=== PATIENT | female | born 1960 | race Caucasian/White ===

== ENCOUNTER 2017-11-17 15:45 | Emergency (ER) | payer OTHER ==
[2017-11-17 16:09] VITALS: TEMP 98.6; BMI 31.0
--- NOTE | 2017-11-17 16:09 | PDOC ---
Rapid Medical Evaluation Time Seen by Provider: 11/17/17 16:04 Medical Evaluation: Allergies Allergy/AdvReac Type Severity Reaction Status Date / Time No Known Drug Allergies Allergy Verified 11/16/17 23:28 11/17/17 16:04 I have performed a brief in-person evaluation of this patient. The patient presents with a chief compliant of: chest pain x 2 days. States pain in throat that radiates into mid chest and left arm intermittently. States nausea with pain. Denies dizziness or shortness of breath Pertinent physical exam findings are: Nad unlabored breathing, clear lungs bilaterally heart s1s2 +bowel sounds, non tender abdomen I have ordered the following: ekg, labs The patient will proceed to the ED for further evaluation.
[2017-11-17] MEDS ORDERED: HEPARIN NA (PORCINE) 5,000 UNITS/ML 1ML VIAL IVPUSH ONE (16:31)
[2017-11-17] MEDS ORDERED: ASPIRIN 325 MG TABLET PO ONE (16:31)
--- NOTE | 2017-11-17 16:34 | PDOC ---
History of Present Illness - General Chief Complaint: Chest Pain Stated Complaint: CHEST PAIN Time Seen by Provider: 11/17/17 16:04 - History of Present Illness Initial Comments: 11/17/17 16:37 The patient is a 56 year old female with a history of HTN, HLD, DM who presents for evaluation of chest pain. The patient reports a 1 day history of worsening sharp left sided chest pain with radiation to the patient's neck. She reports severe worsening pain today prompting her presentation to the ED for further evaluation. The patient had a near syncopal episode in triage and was noted to have an inferior wall STEMI on EKG. She notes SOB as well, but otherwise denies fevers, chills, nausea, vomiting, abdominal pain, or changes with urination or bowel movements. Past History - Past Medical History Allergies/Adverse Reactions: Allergies Allergy/AdvReac Type Severity Reaction Status Date / Time Penicillins Allergy Verified 11/17/17 16:05 Home Medications: Ambulatory Orders Losartan Potassium 100 mg PO DAILY #0 tablet 10/10/11 Nifedipine ER [Procardia XL -] 60 mg PO DAILY #0 tab.er.24 08/10/12 Aspirin [ASA -] 81 mg PO DAILY 10/24/15 Glipizide 5 mg PO DAILY 10/24/15 Tamoxifen Citrate 10 mg PO ASDIR 10/24/15 Anemia: No Asthma: No Cancer: Yes (breast ca) Cardiac Disorders: No CVA: No COPD: No CHF: No Dementia: No Diabetes: Yes GI Disorders: No Disorders: No HTN: Yes Hypercholesterolemia: Yes Liver Disease: No Seizures: No Thyroid Disease: No - Surgical History Appendectomy: Yes - Suicide/Smoking/Psychosocial Hx Smoking Status: No Smoking History: Current every day smoker Years of Tobacco Use: 15 Have you smoked in the past 12 months: No Number of Cigarettes Smoked Daily: 10 Information on smoking cessation initiated: Yes 'Breaking Loose' booklet given: 10/24/15 Hx Alcohol Use: No Drug/Substance Use Hx: No Substance Use Type: None Hx Substance Use Treatment: No Review of Systems - Review of Systems Comments:: 11/17/17 16:40 Constitutional: No fevers, chills, fatigue, malaise HEENT: No Rhinorrhea, nasal congestion, visual changes Cardiovascular:Chest pain. No syncope, palpitations, lightheadedness Respiratory: SOB. No Cough, Hemoptysis, Gastrointestinal: No Abdominal pain, Nausea, Vomiting, Constipation, Diarrhea, Melena Genitourinary: No Dysuria, Frequency, Urgency, Hesitancy, Hematuria, Flank pain Musculoskeletal: No Myalgia, arthralgia Skin: No rashes, itching, bruising, pallor Neurologic: No Headache, Dizziness, Numbness, Weakness, or Tingling Psychiatric: No Hallucinations. No SI or HI *Physical Exam - Vital Signs Last Vital Signs Temp Pulse Resp BP Pulse Ox 98.6 F 96 H 16 126/88 99 11/17/17 16:05 11/17/17 16:05 11/17/17 16:05 11/17/17 16:05 11/17/17 16:05 - Physical Exam Comments: 11/17/17 16:40 General Appearance: Nourished. Diaphoretic. In Severe Apparent Distress HEENT: No Pharyngeal Erythema, Tonsillar Exudate, Tonsillar Erythema Neck: No Cervical Lymphadenopathy Respiratory/Chest: Lungs Clear, Normal Breath Sounds. No Crackles, Rales, Rhonchi, Wheezing Cardiovascular: Regular Rhythm, Regular Rate. No Murmur, Gallops, Rubs Gastrointestinal/Abdominal: Normal Bowel Sounds, Soft. No Guarding, Rebound, Tenderness Musculoskeletal: No CVA Tenderness Extremity: Normal Capillary Refill Integumentary: Normal Color, Dry, Warm Neurologic: Fully Oriented, Alert, Normal Mood/Affect, Normal Response, Heart Score/ECG Review #1 ECG reviewed & interpreted by me at: 16:41 (ST elevations in Leads II, III, aVF. ST Depressions in leads V4, V5, V6) General ECG Interpretation: Sinus Rhythm, Normal Rate, No acute ischemic changes Medical Decision Making - Medical Decision Making 11/17/17 16:42 The patient is a 56 year old female with a history of HTN, HLD, DM who presents for evaluation of chest pain. Given the patient's history and physical exam, the patient's symptoms are consistent with an inferior wall STEMI and the patient will require transfer for process laboratory specialist. We will treat here in the ED with asa, brilinta, heparin. We will obtain a cbc, cmp, troponin, coags to evaluate further. We discussed the case with the process laboratory specialist at [facility] with Dr. Batista who accepted the patient for transfer. We discussed the plan with the patient who voiced understanding and is agreeable with the plan. 11/17/17 16:50 *DC/Admit/Observation/Transfer Diagnosis at time of Disposition: STEMI (ST elevation myocardial infarction) Qualifiers: Involved coronary artery: unspecified coronary artery Qualified Code(s): I21.3 - ST elevation (STEMI) myocardial infarction of unspecified site - Discharge Dispostion Disposition: TRANSFER ACUTE CARE/OTHER HOSP Condition at time of disposition: Stable Decision to Admit order: No - Referrals Referrals: Kai Lu MD [Primary Care Provider] - - Patient Instructions - Post Discharge Activity - Transfer to Acute Care Facility Receiving Facility: [facility] Accepting Physician:: Dr. Batista
--- NOTE | 2017-11-17 16:37 | PDOC ---
Attending Attestation - Resident Resident Name: Jorge Luis Kelley - ED Attending Attestation I have performed the following: I have examined & evaluated the patient, The case was reviewed & discussed with the resident, I agree w/resident's findings & plan, Exceptions are as noted - HPI HPI: 11/17/17 16:34 56 years old past medical history significant for diabetes high cholesterol active tobacco presents the ED with 2 day history of chest pain worsening over the last several hours it radiates to her neck. It is sharp and pressure-like moderate to severe worsening in intensity associated with diaphoresis and nausea. No history of similar. No exacerbating or alleviating factors. Upon arrival to the emergency department patient had initial EKG done which did not show any acute elevations. Her pain then began to worsen she was being escorted back for a second EKG and collapsed in pain. Her second age EKG demonstrated ST elevations. - Physicial Exam PE: 11/17/17 16:34 Vitals: Triage Vital signs reviewed General Appearance: no acute distress, well nourished well developed, Head: Atraumatic, Neck: Supple;No Nucal rigidity Chest Wall: Nontender Cardiac: Regular rate and rhythym, no murmurs, no rubs, no gallops, Lungs: Clear to auscultation bilateral, good air movement bilaterally, Abdomen: Soft, non distended, normal bowel sounds, non tender to palpation Extremities: Full range of motion to all extremities, no cyanosis, clubbing, or edema Skin: Warm and dry, no rashes or lesions, no rash, no petechiae Psych: normal mood, normal affect - Critical Care Time Total Critical Care Time: 35 Critical Care Statement: The care of this patient involved high complexity decision making to prevent further life threatening deterioration of the patient 's condition and/or to evaluate & treat vital organ system(s) failure or risk of failure. - Medical Decision Making Acute STEMI on EKG. Patient ordered for aspirin heparin bolus and Brilinta Case immediately discussed with [facility] transfer team. Transfer being arranged. Awaiting callback from accepting interventionalist. Dr. Voss Interventional Cardiology accepting MD Patient consented for transfer. All questions answered. Patient stable for transfer at this time. Heart Score/ECG Review - ECG Impressions Comment:: 11/17/17 16:[address] elevations in leads 23 aVF. T-wave inversions in leads V4 V5 and V6.
[2017-11-17] MEDS ORDERED: ASPIRIN 81 MG CHEWABLE TABLETS ONE (16:38)
[2017-11-17] MEDS ORDERED: TICAGRELOR 90 MG TABLET PO ONE (16:38)
[2017-11-17] MEDS ORDERED: HEPARIN NA (PORCINE) 5,000 UNITS/ML 1ML VIAL ONE (16:38)
[2017-11-17] MEDS ORDERED: TICAGRELOR 60 MG TABLET PO ONE (16:50)
[2017-11-17 16:57] VITALS: BP 167/99; PULSE 86
[2017-11-17 17:18] LABS: BASO % 0.6 % (0-2.0); HEMOGLOBIN 14.9 GM/dL (10.7-15.3); LYMPH % 34.1 % (8-40); MCH 27.3 pg (25.7-33.7); MCHC 32.4 g/dl (32.0-36.0); MEAN CELL VOLUME 84.4 fl (80-96); MEAN PLT VOLUME 9.4 fl (7.5-11.1); MONO % 6.9 % (3.8-10.2); NEUT % 57.4 % (42.8-82.8); PLATELET COUNT 301 K/MM3 (134-434); RBC 5.44 M/mm3 (3.60-5.2); RDW 14.8 % (11.6-15.6); WHITE BLOOD COUNT 13.8 K/mm3 (4.0-10.0)
[2017-11-17 17:28] LABS: INR 0.87 (0.82-1.09); PROTHROMBIN TIME (PATIENT) 9.8 SEC (9.7-13.0)
[2017-11-17 17:31] LABS: ACTIVATED PTT 27.4 SECONDS (25.2-36.5)
[2017-11-17 17:41] LABS: ALBUMIN 3.9 g/dl (3.4-5.0); ANION GAP 11 (8-16); BILIRUBIN,TOTAL 0.4 mg/dL (0.2-1.0); BLOOD UREA NITROGEN 20 mg/dL (7-18); CALCIUM 9.3 mg/dL (8.5-10.1); CHLORIDE 100 mmol/L (98-107); CO2 25 mmol/L (21-32); SGPT/ALT 26 U/L (12-78); SODIUM 136 mmol/L (136-145); TOT PROT 7.6 g/dl (6.4-8.2)
[2017-11-17 17:44] LABS: ALK PHOS 110 U/L (45-117)
[2017-11-17 17:45] LABS: GLUCOSE,RANDOM 347 mg/dL (74-106); POTASSIUM 4.7 mmol/L (3.5-5.1); SGOT/AST 18 U/L (15-37)
[2017-11-17] MEDS ORDERED: TICAGRELOR 60 MG TABLET PO SCH (22:00)
--- NOTE | 2017-11-18 11:39 | EKG ---
Test Reason : Blood Pressure : / mmHG Vent. Rate : 072 BPM Atrial Rate : 072 BPM P-R Int : 112 ms QRS Dur : 094 ms QT Int : 406 ms P-R-T Axes : 055 064 073 degrees QTc Int : 444 ms AGE AND GENDER SPECIFIC ECG ANALYSIS NORMAL SINUS RHYTHM WITH SINUS ARRHYTHMIA POSSIBLE LEFT ATRIAL ENLARGEMENT ST ELEVATION CONSIDER INFERIOR INJURY OR ACUTE INFARCT ACUTE ME / STEMI Consider right ventricular involvement in acute inferior infarct ABNORMAL ECG WHEN COMPARED WITH ECG OF 17-NOV-2017 15:54, T WAVE AMPLITUDE HAS INCREASED IN LATERAL LEADS Confirmed by JOSE ALFREDO WEBB, MARTA ([id number]) on 11/18/2017 11:39:39 AM Referred By: Confirmed By:MARTA VELIZ MD
--- NOTE | 2017-11-27 12:14 | EKG ---
Test Reason : Blood Pressure : / mmHG Vent. Rate : 099 BPM Atrial Rate : 099 BPM P-R Int : 112 ms QRS Dur : 084 ms QT Int : 370 ms P-R-T Axes : 049 035 047 degrees QTc Int : 474 ms NORMAL SINUS RHYTHM POSSIBLE LEFT ATRIAL ENLARGEMENT BORDERLINE ECG WHEN COMPARED WITH ECG OF 01-AUG-2012 14:02, NO SIGNIFICANT CHANGE WAS FOUND Confirmed by MARTA VELIZ MD ([id number]) on 11/27/2017 12:14:12 PM Referred By: Confirmed By:MARTA VELIZ MD
== END 2017-11-17 17:00 | disposition short-term general hospital (02) ==
LOC: JER 15:45
PROC: 3E033GC Introduction of Other Therapeutic Substance into Peripheral Vein, Percutaneous Approach (ICD-10-PCS; principal; 2017-11-17)
DX: I21.3 ST elevation (STEMI) myocardial infarction of unspecified site (principal); E11.9 Type 2 diabetes mellitus without complications; I10 Essential (primary) hypertension; E78.5 Hyperlipidemia, unspecified
CPT/HCPCS: 36415; 80053; 84484; 85025; 85610; 85730; 93005; 93010; 99284-25; J1644

== ENCOUNTER 2018-06-14 13:22 | Inpatient (IN) | payer OTHER ==
[2018-06-14] MEDS ORDERED: DOXYCYCLINE INJECTION 100 MG in DEXTROSE 5%-WATER - 100 ML IVPB ONE (15:21)
[2018-06-14] MEDS ORDERED: CEFTRIAXONE 1,000 MG in DEXTROSE 5%-WATER - 50 ML IVPB ONE (15:21)
--- NOTE | 2018-06-14 15:21 | PDOC ---
Attending Attestation - Resident Resident Name: Moose [place]enton - ED Attending Attestation I have performed the following: I have examined & evaluated the patient, The case was reviewed & discussed with the resident, I agree w/resident's findings & plan - HPI HPI: 06/14/18 15:22 57 year old female with a history of HTN, HLD, DM, breast ca s/p remission, PE presenting with 2 weeks of cough, malaise and night sweats. on course of Zpak without relief ~1 week ago. no cp, sob, fevers, AP, n/v/d, leg pain or swelling sent in by PMD for admission, CT imaging, cultures and treatment. PMD Dr Lu - Physicial Exam PE: 06/14/18 15:23 NAD, well appearing, PERRL, EOMI, MMM, nl conjunctiva, anicteric; neck supple. lungs clear, RRR, abdomen soft nontender. HINES x4, no focal neuro deficits. No peripheral edema. normal color for ethnicity, WWP. no calf tenderness. - Medical Decision Making 06/14/18 15:23 Vital Signs Temp Pulse Resp BP Pulse Ox 98.7 F 95 H 20 126/80 100 06/14/18 13:59 06/14/18 13:59 06/14/18 13:59 06/14/18 13:59 06/14/18 13:59 hpi as documented, VS wnl well appearing labs ordered, cultures pending cef/doxycycline for pneumonia coverage, failing outpatient abx. bedside sono with left air bronchograms, no effusion, A line profile. no acute cardiac findings as documented Admit to dr Lu service, medical management. Procedures - Bedside Ultrasound Bedside Ultrasound: Lung Remarks: 06/14/18 16:02 POCUS echo and thoracic exam performed and documented/saved, indication includes chest pain/dyspnea. views obtained (PSLA, PSS, A4, SX, bilateral lung leblanc). Findings include normal EF on visual estimation, no pericardial or pleural effusion, scant B lines and air bronchograms on left. no effusion. RV< LV. Impression: left sided pneumonia. no acute cardiac findings.
--- NOTE | 2018-06-14 15:32 | HP ---
Admitting History and Physical - Primary Care Physician PCP: Kai Lu - Admission Chief Complaint: cough for 2 weeks with night sweats and weight loss History of Present Illness: 57 yr old female sent in by PMD for further work up of cough and night sweats with weight loss per patient for last two weeks has been coughing with greenish sputum got z pack still no relief went back to pmd was told to come to ER for ct scan and cultures and blood work PMD gave her spiriva and nebulizers as well smokes 1-2 cigg per day ER rocephin and doxycycline labs pending - Past Medical History Cardiovascular: Yes: CAD (with stents), HTN, Hyperlipdemia ...LMP: 11/18/11 Heme/Onc: Yes: Cancer (breast), Other (PE) Musculoskeletal: Yes: Other (neuropathy) Endocrine: Yes: Diabetes Mellitus - Smoking History Smoking history: Former smoker Have you smoked in the past 12 months: No Aproximately how many cigarettes per day: 10 - Alcohol/Substance Use Hx Alcohol Use: No Home Medications - Allergies Allergies/Adverse Reactions: Allergies Allergy/AdvReac Type Severity Reaction Status Date / Time Penicillins Allergy Verified 06/14/18 13:51 - Home Medications Home Medications: Ambulatory Orders Losartan Potassium 100 mg PO DAILY #0 tablet 10/10/11 Nifedipine ER [Procardia XL -] 60 mg PO DAILY #0 tab.er.24 08/10/12 Tamoxifen Citrate 10 mg PO ASDIR 10/24/15 Albuterol 2.5/Ipratropium 0.5 [Duoneb -] 1 neb IH QID 06/14/18 Atorvastatin Calcium [Lipitor] 10 mg PO HS 06/14/18 Cholecalciferol (Vitamin D3) [Vitamin D3 -] 1,000 unit PO DAILY 06/14/18 Clopidogrel Bisulfate [Plavix -] 75 mg PO DAILY 06/14/18 Metformin HCl [Glucophage] 1,000 mg PO BID 06/14/18 Metoprolol Succinate [Toprol Xl -] 25 mg PO DAILY 06/14/18 Omeprazole Magnesium [Prilosec Otc] 20 mg PO DAILY 06/14/18 Rosuvastatin Calcium [Crestor] 10 mg PO HS 06/14/18 Tiotropium [place] [Spiriva Respimat] 4 gm IH BID 06/14/18 hydrOXYzine HCL [Atarax -] 25 mg PO TID 06/14/18 Review of Systems - Review of Systems Constitutional: reports: Loss of Appetite, Night Sweats, Unintentional Wgt. Loss Respiratory: reports: Cough Physical Examination Vital Signs: Vital Signs Temperature 98.7 F 06/14/18 13:59 Pulse Rate 95 H 06/14/18 13:59 Respiratory Rate 20 06/14/18 13:59 Blood Pressure 126/80 06/14/18 13:59 O2 Sat by Pulse Oximetry (%) 100 06/14/18 13:59 Constitutional: Yes: Calm Cardiovascular: Yes: Regular Rate and Rhythm, S1, S2 Respiratory: Yes: Diminished, Rhonchi Gastrointestinal: Yes: Normal Bowel Sounds, Soft Edema: No Neurological: Yes: Alert, Oriented Problem List - Problems (1) Cough Assessment/Plan: pulm ID ct scan cutltures spriba labs heparin subq rapid flu [place] Code(s): R05 - COUGH (2) Night sweat Assessment/Plan: ct scan chest abdomen pelvis Code(s): R61 - GENERALIZED HYPERHIDROSIS (3) CAD (coronary artery disease) Assessment/Plan: statin plabvix metoprolol Code(s): I25.10 - ATHSCL HEART DISEASE OF [place] CORONARY ARTERY W/O ANG PCTRS (4) Smoker Assessment/Plan: nicotine patch Code(s): F17.200 - NICOTINE DEPENDENCE, UNSPECIFIED, UNCOMPLICATED (5) Diabetes Assessment/Plan: hgba1C 12.7 PER PMD sliding scale bgm hold metformin insulin Code(s): E11.9 - TYPE 2 DIABETES MELLITUS WITHOUT COMPLICATIONS Qualifiers: Diabetes mellitus type: type 2
[2018-06-14] MEDS ORDERED: CEFTRIAXONE 1 GM/50 ML BAG ONE (15:34)
[2018-06-14] MEDS ORDERED: ALBUTEROL SO4 2.5/IPRATROPIUM 0.5 INH SOL 3 ML VIAL.NEB. NEB PRN (15:37)
--- NOTE | 2018-06-14 16:11 | PDOC ---
History of Present Illness - General History Source: Patient Exam Limitations: No Limitations - History of Present Illness Initial Comments: 06/14/18 16:06 The patient is a 57F with a PMH of HTN, HLD, DM who presents to the ER with 2 weeks of cough and night sweats. The patients states that she's had a cough for 2 weeks accompanied by night sweats and sweats that occur during the day. She states that her cough is worse when she lays down. She denies fever, sick contacts, recent travel, recent surgery, but admits to a hx of breast CA in 2012 but is unsure of the evaluation. She also denies hemoptysis but admits to a green sputum for her productive cough. <Moose Denton - Last Filed: 06/18/18 05:16> <Britney Bear - Last Filed: 06/18/18 18:31> - General Chief Complaint: Respiratory Stated Complaint: SENT BY PCP Time Seen by Provider: 06/14/18 14:21 Past History - Past Medical History Anemia: No Asthma: No Cancer: Yes (breast ca) Cardiac Disorders: Yes [place]) CVA: No COPD: No CHF: No Dementia: No Diabetes: Yes GI Disorders: No Disorders: No HTN: Yes Hypercholesterolemia: Yes Liver Disease: No Seizures: No Thyroid Disease: No - Surgical History Appendectomy: Yes Cardiac Surgery: Yes (stents) - Suicide/Smoking/Psychosocial Hx Smoking Status: No Smoking History: Former smoker Years of Tobacco Use: 15 Have you smoked in the past 12 months: No Number of Cigarettes Smoked Daily: 10 Information on smoking cessation initiated: No 'Breaking Loose' booklet given: 10/24/15 Hx Alcohol Use: No Drug/Substance Use Hx: No Substance Use Type: None Hx Substance Use Treatment: No <Moose Denton - Last Filed: 06/18/18 05:16> <Britney Bear - Last Filed: 06/18/18 18:31> - Past Medical History Allergies/Adverse Reactions: Allergies Allergy/AdvReac Type Severity Reaction Status Date / Time Penicillins Allergy Verified 06/14/18 13:51 Home Medications: Ambulatory Orders Losartan Potassium 100 mg PO DAILY #0 tablet 10/10/11 Nifedipine ER [Procardia XL -] 60 mg PO DAILY #0 tab.er.24 08/10/12 Tamoxifen Citrate 10 mg PO ASDIR 10/24/15 Albuterol 2.5/Ipratropium 0.5 [Duoneb -] 1 neb IH QID 06/14/18 Atorvastatin Calcium [Lipitor] 10 mg PO HS 06/14/18 Cholecalciferol (Vitamin D3) [Vitamin D3 -] 1,000 unit PO DAILY 06/14/18 Clopidogrel Bisulfate [Plavix -] 75 mg PO DAILY 06/14/18 Metformin HCl [Glucophage] 1,000 mg PO BID 06/14/18 Metoprolol Succinate [Toprol Xl -] 25 mg PO DAILY 06/14/18 Omeprazole Magnesium [Prilosec Otc] 20 mg PO DAILY 06/14/18 Rosuvastatin Calcium [Crestor] 10 mg PO HS 06/14/18 Tiotropium [place] [Spiriva Respimat] 4 gm IH BID 06/14/18 hydrOXYzine HCL [Atarax -] 25 mg PO TID 06/14/18 Review of Systems - Review of Systems Able to Perform ROS?: Yes Comments:: 06/14/18 16:09 GENERAL/CONSTITUTIONAL: Positive for night sweats. No fever or chills. No weakness. HEAD, EYES, EARS, NOSE AND THROAT: No change in vision. No ear pain or discharge. No sore throat. CARDIOVASCULAR: No chest pain, palpitations, or lightheadedness. RESPIRATORY: Positive for cough w/ productive sputum. No wheezing, shortness of breath, or hemoptysis. GASTROINTESTINAL: No nausea, vomiting, diarrhea, constipation, or abdominal pain. GENITOURINARY: No dysuria, frequency, hematuria, or change in urination. MUSCULOSKELETAL: No joint or muscle swelling or pain. No neck or back pain. SKIN: No rash or lesions. NEUROLOGIC: No headache, numbness, tingling, focal weakness, loss of consciousness, or change in strength/sensation. ENDOCRINE: No increased thirst. No abnormal weight change. HEMATOLOGIC/LYMPHATIC: No anemia, easy bleeding, or history of blood clots. ALLERGIC/IMMUNOLOGIC: No hives or skin allergy. Is the patient limited Nepalese proficient: No <Moose Denton - Last Filed: 06/18/18 05:16> *Physical Exam - Vital Signs Last Vital Signs Temp Pulse Resp BP Pulse Ox 98.7 F 95 H 20 126/80 100 06/14/18 13:59 06/14/18 13:59 06/14/18 13:59 06/14/18 13:59 06/14/18 13:59 - Physical Exam Comments: 06/14/18 16:10 GENERAL: Well developed, well nourished. Awake and alert. No acute distress. HEENT: Normocephalic, atraumatic. Hearing grossly normal. Moist mucous membranes. PERRLA, EOMI. No conjunctival pallor. Sclera are non-icteric. NECK: Supple. Full ROM. No JVD. CARDIOVASCULAR: Regular rate and rhythm. No murmurs, rubs, or gallops. PULMONARY: No evidence of respiratory distress. Mild expiratory wheezing in the L upper lung field. ABDOMINAL: Soft. Non-tender. Non-distended. No rebound or guarding. GENITOURINARY: No CVA tenderness bilaterally. MUSCULOSKELETAL: Normal range of motion at all joints. No bony deformities or tenderness. EXTREMITIES: No cyanosis. No clubbing. No edema. No calf tenderness or swelling. SKIN: Warm and dry. Normal capillary refill. No rashes. No jaundice. NEUROLOGICAL: Alert, awake, appropriate. Cranial nerves 2-12 grossly intact. Gait is normal without ataxia. PSYCHIATRIC: Cooperative. Good eye contact. Appropriate mood and affect. <Moose Denton - Last Filed: 06/18/18 05:16> - Vital Signs Last Vital Signs Temp Pulse Resp BP Pulse Ox 98.4 F 91 H 18 130/71 97 06/18/18 10:20 06/18/18 10:20 06/18/18 10:20 06/18/18 10:20 06/18/18 10:20 <Britney Bear - Last Filed: 06/18/18 18:31> Moderate Sedation - Procedure Monitoring Vital Signs: Procedure Monitoring Vital Signs Temperature 98.7 F 06/14/18 13:59 Pulse Rate 95 H 06/14/18 13:59 Respiratory Rate 20 06/14/18 13:59 Blood Pressure 126/80 06/14/18 13:59 O2 Sat by Pulse Oximetry (%) 100 06/14/18 13:59 <Moose Denton - Last Filed: 06/18/18 05:16> - Procedure Monitoring Vital Signs: Procedure Monitoring Vital Signs Temperature 98.4 F 02/08/19 10:20 Pulse Rate 91 H 06/18/18 10:20 Respiratory Rate 18 06/18/18 10:20 Blood Pressure 130/71 06/18/18 10:20 O2 Sat by Pulse Oximetry (%) 97 06/18/18 10:20 <Britney Bear - Last Filed: 06/18/18 18:31> ED Treatment Course - LABORATORY CBC & Chemistry Diagram: 06/17/18 06:45 06/17/18 06:45 - RADIOLOGY Radiology Studies Ordered: Category Date Time Status CHEST X-RAY PORTABLE* [RAD] Stat Radiology 06/14/18 14:30 Taken - Medications Given in the ED: ED Medications Discontinued Medications Generic Name Dose Route Start Last Admin Trade Name Freq PRN Reason Stop Dose Admin Ceftriaxone Sodium 1,000 mg/ 50 mls @ 100 mls/hr 06/14/18 15:21 06/14/18 15: 34 Dextrose IVPB 06/14/18 15:50 100 mls/hr ONCE ONE Administration <Moose Denton - Last Filed: 06/18/18 05:16> - LABORATORY CBC & Chemistry Diagram: 06/17/18 06:45 06/17/18 06:45 - Medications Given in the ED: ED Medications Discontinued Medications Generic Name Dose Route Start Last Admin Trade Name Freq PRN Reason Stop Dose Admin Acetaminophen 650 mg 06/15/18 05:31 06/15/18 06:05 Tylenol - PO 06/15/18 05:32 650 mg ONCE ONE Administration Atorvastatin Calcium 80 mg 06/14/18 22:00 06/15/18 21:47 Lipitor - PO 80 mg HS JANET Administration Clopidogrel Bisulfate 75 mg 06/15/18 10:00 06/16/18 10:40 Plavix - PO Not Given DAILY JANET Guaifenesin 10 ml 06/14/18 23:07 06/15/18 21:43 Diabetic Tussin Dm - PO 10 mg Q6H PRN Administration COUGH Heparin Sodium (Porcine) 5,000 unit 06/14/18 22:00 06/16/18 13:56 Heparin - SQ Not Given TID JANET Ceftriaxone Sodium 1,000 mg/ 50 mls @ 100 mls/hr 06/14/18 15:21 06/14/18 15: 34 Dextrose IVPB 06/14/18 15:50 100 mls/hr ONCE ONE Administration Doxycycline Hyclate 100 mg/ 100 mls @ 100 mls/hr 06/14/18 15:21 06/14/18 17: 23 Dextrose IVPB 06/14/18 16:20 Not Given ONCE ONE Levofloxacin 750 mg in 150 mls @ 100 mls/hr 06/14/18 18:30 06/16/18 10:39 Levaquin 750 Mg Premixed Ivpb - IVPB 100 mls/hr DAILY JANET Administration Protocol Vancomycin HCl 1,000 mg in 250 mls @ 166.667 mls/hr 06/14/18 18:30 06/16/18 05:35 Vancomycin (Pre-Docked) IVPB 166.667 mls/hr Q12H JANET Administration Protocol Dextrose/Sodium Chloride 1,000 mls @ 75 mls/hr 06/15/18 21:00 06/15/18 21:48 D5-Ns - IV 75 mls/hr ASDIR JANET Administration Lactated Ringer's 1,000 mls @ 125 mls/hr 06/16/18 14:45 06/16/18 16:55 Lactated Ringers Solution IV Not Given ASDIR JANET Dextrose/Sodium Chloride 1,000 mls @ 75 mls/hr 06/16/18 15:25 06/16/18 15:30 D5-Ns - IV 0 mls ASDIR JANET Administration Lactated Ringer's 1,000 mls @ 125 mls/hr 06/16/18 15:25 06/16/18 17:39 Lactated Ringers Solution IV Not Given ASDIR JANET Sodium Chloride 1,000 mls @ 75 mls/hr 06/16/18 23:15 06/16/18 23:30 Normal Saline - IV 75 mls/hr ASDIR JANET Administration Insulin Aspart 1 vial 06/14/18 16:30 06/14/18 17:31 Novolog Vial Sliding Scale - SQ 10 units ACHS JANET Administration Protocol Insulin Aspart 1 vial 06/14/18 20:52 06/16/18 11:59 Novolog Vial Sliding Scale - SQ Not Given [facility] Protocol Insulin Detemir 8 units 06/14/18 22:00 06/15/18 21:47 Levemir Vial SQ 8 units HS JANET Administration Loratadine 10 mg 06/15/18 10:00 06/16/18 10:51 Claritin - PO Not Given DAILY JANET Losartan Potassium 100 mg 06/15/18 10:00 06/16/18 10:40 Cozaar - PO 100 mg DAILY JANET Administration Magnesium Hydroxide 30 ml 06/15/18 08:14 06/15/18 09:33 Milk Of Magnesia - PO 30 ml DAILY PRN Administration CONSTIPATION Magnesium Sulfate 1 gm 06/15/18 08:14 06/15/18 09:32 Magnesium Sulfate IVPB 06/15/18 08:15 1 gm ONCE ONE Administration Melatonin 5 mg 06/17/18 22:19 06/17/18 22:44 Melatonin PO 06/17/18 22:20 5 mg ONCE ONE Administration Metformin HCl 850 mg 06/15/18 07:00 06/16/18 06:07 Glucophage - PO 850 mg BID@0700,1630 JANET Administration Metoprolol Succinate 25 mg 06/15/18 10:00 06/16/18 10:41 Toprol Xl - PO 25 mg DAILY JANET Administration Nicotine 7 mg 06/15/18 10:00 06/16/18 10:40 Nicoderm Patch - TD 7 mg DAILY JANET Administration Nifedipine 60 mg 06/15/18 10:00 06/16/18 10:40 Procardia Xl - PO 60 mg DAILY JANET Administration Polyethylene Glycol 17 gm 06/15/18 10:00 06/16/18 10:40 Miralax (For Daily Use) - PO Not Given DAILY JANET Ranitidine HCl 150 mg 06/15/18 10:00 06/16/18 10:40 Zantac - PO 150 mg BID JANET Administration Sitagliptin Phosphate 100 mg 06/15/18 07:00 06/16/18 06:07 Januvia - PO 100 mg DAILY@0700 JANET Administration Tiotropium [place] 2 puff 06/15/18 10:00 06/16/18 10:51 Spiriva Respimat IH Not Given DAILY JANET <Britney Bear - Last Filed: 06/18/18 18:31> Medical Decision Making - Medical Decision Making 06/14/18 16:11 The patient is a 57F with a PMH of HTN, HLD, DM, and breast CA who presents to the ER with complaints of a cough x 2 weeks w/ sweats sent by PCP. Orders placed and pt endorsed to PCP's associated, Dr. Bhavna. Pending admission. Pt is hemodynamically stable. <Moose Denton - Last Filed: 06/18/18 05:16> - Medical Decision Making of note pt with left upper lobe consolidative process on bedside thoracic ultrasound, treat as pna, abx given. endorsed to primary team as documented. 06/18/18 18:30 <Britney Bear - Last Filed: 06/18/18 18:31> *DC/Admit/Observation/Transfer <Moose Denton - Last Filed: 06/18/18 05:16> - Discharge Dispostion Decision to Admit order: Yes <Britney Bear - Last Filed: 06/18/18 18:31> Diagnosis at time of Disposition: Pneumonia Chest pain Qualifiers: Chest pain type: unspecified Qualified Code(s): R07.9 - Chest pain, unspecified - Discharge Dispostion Condition at time of disposition: Guarded
[2018-06-14 16:14] LABS: BASO % 0.8 % (0-2.0); EOS % 0.8 % (0-4.5); HEMATOCRIT 27.8 % (32.4-45.2); HEMOGLOBIN 9.3 GM/dL (10.7-15.3); LYMPH % 28.8 % (8-40); MCH 28.1 pg (25.7-33.7); MCHC 33.5 g/dl (32.0-36.0); MEAN CELL VOLUME 83.8 fl (80-96); MEAN PLT VOLUME 8.8 fl (7.5-11.1); MONO % 9.3 % (3.8-10.2); NEUT % 60.3 % (42.8-82.8); PLATELET COUNT 299 K/MM3 (134-434); RBC 3.32 M/mm3 (3.60-5.2); RDW 14.7 % (11.6-15.6); WHITE BLOOD COUNT 7.4 K/mm3 (4.0-10.0)
[2018-06-14] MEDS ORDERED: INSULIN SLIDING SCALE (NOVOLOG) 1 VIAL SQ SCH (16:30)
[2018-06-14 16:57] LABS: ALBUMIN 2.4 g/dl (3.4-5.0); ALK PHOS 130 U/L (45-117); ANION GAP 12 MMOL/L (8-16); BILIRUBIN,TOTAL 0.4 mg/dL (0.2-1); BLOOD UREA NITROGEN 14 mg/dL (7-18); CALCIUM 8.6 mg/dL (8.5-10.1); CHLORIDE 102 mmol/L (98-107); CO2 22 mmol/L (21-32); CREATININE 0.5 mg/dL (0.55-1.3); POTASSIUM 4.2 mmol/L (3.5-5.1); SGOT/AST 21 U/L (15-37); SGPT/ALT 22 U/L (13-61); SODIUM 137 mmol/L (136-145); TOT PROT 7.1 g/dl (6.4-8.2)
[2018-06-14 17:01] LABS: GLUCOSE,RANDOM 307 mg/dL (74-106)
--- NOTE | 2018-06-14 17:29 | EKG ---
Test Reason : Blood Pressure : / mmHG Vent. Rate : 098 BPM Atrial Rate : 098 BPM P-R Int : 110 ms QRS Dur : 078 ms QT Int : 368 ms P-R-T Axes : 050 044 039 degrees QTc Int : 469 ms SINUS RHYTHM WITH SHORT WI POSSIBLE LEFT ATRIAL ENLARGEMENT NONSPECIFIC ST ABNORMALITY ABNORMAL ECG WHEN COMPARED WITH ECG OF 17-NOV-2017 16:21, VENT. RATE HAS INCREASED Confirmed by KAREEM WEBB, NIKOLE ([id number]) on 06/14/2018 5:28:49 PM Referred By: Confirmed By:NIKOLE SERNA MD
[2018-06-14 17:56] VITALS: BMI 30.4
--- NOTE | 2018-06-14 18:31 | PN ---
Progress Note (short form) - Note Progress Note: ID CONSULT DICTATED L MID LUNG INFILTRATE R/O MASS ?MAJOR PCN ALLERGY AWAIT C/S CT CHEST EMPIRIC LEVAQUIN/VANCOMYCIN
--- NOTE | 2018-06-14 19:09 | CONS ---
INFECTIOUS DISEASE CONSULTATION DATE OF CONSULTATION: 06/14/2018 The patient is a 57-year-old female with a history of breast cancer diagnosed 2012, diabetes mellitus, coronary artery disease, evaluated for pneumonia. She was admitted to the hospital with a 2-week history of worsening cough, shortness of breath, and malaise as well as night sweats. She reports cough productive of greenish sputum. She was seen by her primary care doctor as an outpatient and prescribed Z-[place] and nebulizers without improvement. She was referred to the emergency room where a chest x-ray shows a dense left mid-lung infiltrate, possible mass. She reports the cough worsens when she is supine. She has associated shortness of breath. She denies any ill contacts. She is a current smoker. Denies any recent hospitalizations or travel. PAST MEDICAL HISTORY: Positive for diabetes mellitus, hypertension, hyperlipidemia, breast cancer diagnosed 2012, status post lumpectomy, chemotherapy, and radiation therapy. She also had a history of MSSA bacteremia in 2012 secondary to an infected port which was removed. PAST SURGICAL HISTORY: Status post coronary artery stents. ALLERGIES: PENICILLIN. Patient states she had a bad reaction to PENICILLIN in the past including swelling and rash as well as some questionable tongue swelling. SOCIAL HISTORY: As per HPI. Denies risk factors for HIV. LABORATORY DATA: White count 7.4; neutrophils 60, lymphocytes 28, monocytes 9; hematocrit 27.8; platelet count 299. Creatinine 0.5. Glucose 307. Flu swab negative. Culture is pending. Protein 7.1. Albumin 2.4. PHYSICAL EXAMINATION: General: She is seated in bed. She is not acutely short of breath, not acutely toxic appearing. She is noted to have cough. Vital Signs: Temperature 98.2; blood pressure 137/74; pulse 100, regular; respirations 20 per minute. HEENT: Sclerae anicteric. Heart: Sounds S1, S2. Lungs: Rhonchi bilaterally. Abdomen: Obese, soft, nontender. Extremities: Negative for edema. Negative Homans sign. IMPRESSION: 1. Left mid-lung infiltrate, rule out mass. 2. Questionable major PENICILLIN allergy. 3. History of breast cancer. 4. History of Staphylococcus aureus bacteremia secondary to infected port. Await cultures. Obtain CAT scan of the chest. Urine for Legionella and pneumococcal antigens. Empiric antibiotic coverage in this patient with questionable major PENICILLIN allergy with Levaquin and vancomycin. Patient declines HIV testing. Will follow. Thank you for the kind referral. DC ARANA M.D. STEFANIE/[id number]
[2018-06-14 19:55] LABS: URINE APPEARANCE CLEAR; URINE BILIRUBIN NEGATIVE (<2.0 mg/dL); URINE COLOR YELLOW; URINE GLUCOSE (UA) 3+ (NEGATIVE); URINE KETONE 1+ (NEGATIVE); URINE LEUK ESTERASE NEGATIVE (NEGATIVE); URINE NITRITE NEGATIVE (NEGATIVE); URINE PROTEIN 2+ (NEGATIVE); URINE UROBILINOGEN NEGATIVE mg/dL (0.2-1.0)
[2018-06-14 20:09] LABS: EPI CELLS RARE /HPF (FEW); URINE MUCUS RARE
--- NOTE | 2018-06-14 20:50 | CONSULT ---
Consult Consult Specialty:: endocrine Referred by:: dr.rabadi león Reason for Consultation:: diabetes mellitus hyperglycemia - History of Present Illness Chief Complaint: high sugars History of Present Illness: 57 year old female with a history of DM 2,HTN, HLD, breast ca s/p remission, PE presenting with cough, malaise and fever, on course of Zpak without relief having weakness,polyuria,polydipsia,headache, blood sugars elevated 300mg/d poor appetite. sent in by PMD for admission, CT imaging, cultures and treatment. - Past Medical History Cardio/Vascular: Yes: CAD (with stents), HTN, Hyperlipdemia ...LMP: 11/18/11 ...: No Musculoskeletal: Yes: Other (neuropathy) Endocrine: Yes: Diabetes Mellitus - Alcohol/Substance Use Hx Alcohol Use: No - Smoking History Smoking history: Former smoker Have you smoked in the past 12 months: No Aproximately how many cigarettes per day: 10 Home Medications - Allergies Allergies/Adverse Reactions: Allergies Allergy/AdvReac Type Severity Reaction Status Date / Time Penicillins Allergy Verified 06/14/18 13:51 - Home Medications Home Medications: Ambulatory Orders Losartan Potassium 100 mg PO DAILY #0 tablet 10/10/11 Nifedipine ER [Procardia XL -] 60 mg PO DAILY #0 tab.er.24 08/10/12 Tamoxifen Citrate 10 mg PO ASDIR 10/24/15 Albuterol 2.5/Ipratropium 0.5 [Duoneb -] 1 neb IH QID 06/14/18 Atorvastatin Calcium [Lipitor] 10 mg PO HS 06/14/18 Cholecalciferol (Vitamin D3) [Vitamin D3 -] 1,000 unit PO DAILY 06/14/18 Clopidogrel Bisulfate [Plavix -] 75 mg PO DAILY 06/14/18 Metformin HCl [Glucophage] 1,000 mg PO BID 06/14/18 Metoprolol Succinate [Toprol Xl -] 25 mg PO DAILY 06/14/18 Omeprazole Magnesium [Prilosec Otc] 20 mg PO DAILY 06/14/18 Rosuvastatin Calcium [Crestor] 10 mg PO HS 06/14/18 Tiotropium [place] [Spiriva Respimat] 4 gm IH BID 06/14/18 hydrOXYzine HCL [Atarax -] 25 mg PO TID 06/14/18 Review of Systems - Review of Systems Constitutional: reports: Lethargy Eyes: reports: Blurred Vision HENT: reports: No Symptoms Neck: reports: No Symptoms Cardiovascular: reports: Shortness of Breath Respiratory: reports: Exercise Intolerance, SOB on Exertion Gastrointestinal: reports: No Symptoms Genitourinary: reports: No Symptoms Breasts: reports: No Symptoms Reported Musculoskeletal: reports: Muscle Cramps, Muscle Weakness Neurological: reports: Weakness Endocrine: reports: Unexplained Weight Gain Physical Exam Vital Signs: Vital Signs Temperature 98.2 F 06/14/18 17:45 Pulse Rate 100 H 06/14/18 17:45 Respiratory Rate 20 06/14/18 17:45 Blood Pressure 137/74 06/14/18 17:45 O2 Sat by Pulse Oximetry (%) 93 L 06/14/18 17:45 Constitutional: Yes: Anxious Eyes: Yes: EOM Intact HENT: Yes: Normocephalic Neck: Yes: Trachea Midline Cardiovascular: Yes: Regular Rate and Rhythm Respiratory: Yes: Rhonchi, SOB, Tachypnea, Wheezes Gastrointestinal: Yes: Normal Bowel Sounds ...Rectal Exam: Yes: Deferred Musculoskeletal: Yes: Muscle Weakness Extremities: Yes: Delayed Capillary Refill, Erythema Edema: No Neurological: Yes: Alert, Oriented Labs: CBC, BMP 06/14/18 16:00 06/14/18 16:00 Problem List - Problems (1) CAD (coronary artery disease) Code(s): I25.10 - ATHSCL HEART DISEASE OF [place] CORONARY ARTERY W/O ANG PCTRS (2) Cough Code(s): R05 - COUGH (3) Diabetes Code(s): E11.9 - TYPE 2 DIABETES MELLITUS WITHOUT COMPLICATIONS Qualifiers: Diabetes mellitus type: type 2 (4) Night sweat Code(s): R61 - GENERALIZED HYPERHIDROSIS (5) STEMI (ST elevation myocardial infarction) Code(s): I21.3 - ST ELEVATION (STEMI) MYOCARDIAL INFARCTION OF UNSP SITE Qualifiers: Involved coronary artery: unspecified coronary artery Qualified Code(s): I21.3 - ST elevation (STEMI) myocardial infarction of unspecified site Assessment/Plan Current Active Problems CAD (coronary artery disease) (Acute) Cough (Acute) Diabetes (Acute) Night sweat (Acute) Smoker (Acute) diabetes mellitus hyperglycemia insulin resistant copd exacerbation bronchitis Abnormal Lab Results 06/14/18 06/14/18 06/14/18 16:00 16:00 18:50 RBC 3.32 L Hgb 9.3 L Hct 27.8 L D Creatinine 0.5 L Random Glucose 307 H* Alkaline Phosphatase 130 H Albumin 2.4 L Urine Protein 2+ H Urine Glucose (UA) 3+ H Urine Ketones 1+ H Laboratory Results - last 24 hr 06/14/18 06/14/18 06/14/18 16:00 16:00 16:00 WBC 7.4 RBC 3.32 L Hgb 9.3 L Hct 27.8 L D MCV 83.8 MCH 28.1 MCHC 33.5 RDW 14.7 Plt Count 299 MPV 8.8 Absolute Neuts (auto) 4.5 Neutrophils % 60.3 Lymphocytes % 28.8 Monocytes % 9.3 Eosinophils % 0.8 Basophils % 0.8 Nucleated RBC % 0 Sodium 137 Potassium 4.2 Chloride 102 Carbon Dioxide 22 Anion Gap 12 BUN 14 Creatinine 0.5 L Creat Clearance w eGFR > 60 Random Glucose 307 H* Calcium 8.6 Total Bilirubin 0.4 AST 21 ALT 22 Alkaline Phosphatase 130 H Total Protein 7.1 Albumin 2.4 L Urine Color Urine Appearance Urine pH Ur Specific [place] Urine Protein Urine Glucose (UA) Urine Ketones Urine Blood Urine Nitrite Urine Bilirubin Urine Urobilinogen Ur Leukocyte Esterase Urine WBC (Auto) Urine RBC (Auto) Ur Epithelial Cells Urine Mucus Influenza A (Rapid) Negative Influenza B (Rapid) Negative 06/14/18 18:50 WBC RBC Hgb Hct MCV MCH MCHC RDW Plt Count MPV Absolute Neuts (auto) Neutrophils % Lymphocytes % Monocytes % Eosinophils % Basophils % Nucleated RBC % Sodium Potassium Chloride Carbon Dioxide Anion Gap BUN Creatinine Creat Clearance w eGFR Random Glucose Calcium Total Bilirubin AST ALT Alkaline Phosphatase Total Protein Albumin Urine Color Yellow Urine Appearance Clear Urine pH 6.0 Ur Specific [place] 1.030 Urine Protein 2+ H Urine Glucose (UA) 3+ H Urine Ketones 1+ H Urine Blood Negative Urine Nitrite Negative Urine Bilirubin Negative Urine Urobilinogen Negative Ur Leukocyte Esterase Negative Urine WBC (Auto) 1 Urine RBC (Auto) 1 Ur Epithelial Cells Rare Urine Mucus Rare Influenza A (Rapid) Influenza B (Rapid) plan: continue bgm qid novolog insulin doses metformin 500mg bid \check [id number]
[2018-06-14] MEDS: VANCOMYCIN 1 GRAM (PRE-DOCKED) 1,000 MG/250 ML BAG IVPB SCH (22:26)
[2018-06-14] MEDS: INSULIN (LEVEMIR) 100 UNITS/ML UNITS SQ SCH (22:27)
[2018-06-14] MEDS: ATORVASTATIN CA 80 MG TABLET (FP) PO SCH (22:27)
[2018-06-14] MEDS: HEPARIN NA (PORCINE) 5,000 UNITS/ML 1ML VIAL SQ SCH (22:27)
[2018-06-14] MEDS: guaiFENesin/D-M SUGAR-FREE/ACLHOL-FREE 118 ML BOTTLE PO PRN (23:26)
[2018-06-15] MEDS: INSULIN SLIDING SCALE (NOVOLOG) 1 VIAL SQ SCH ×5 (00:07→21:46)
[2018-06-15] MEDS ORDERED: ACETAMINOPHEN 325 MG TABLET (FP) PO ONE (05:31)
[2018-06-15] MEDS: VANCOMYCIN 1 GRAM (PRE-DOCKED) 1,000 MG/250 ML BAG IVPB SCH ×2 (05:37→17:49)
[2018-06-15] MEDS: guaiFENesin/D-M SUGAR-FREE/ACLHOL-FREE 118 ML BOTTLE PO PRN ×2 (05:43→21:43)
[2018-06-15] MEDS: HEPARIN NA (PORCINE) 5,000 UNITS/ML 1ML VIAL SQ SCH ×3 (05:45→21:47)
[2018-06-15] MEDS: sitaGLIPtin PHOSPHATE 100 MG TABLET (FP) PO SCH (06:06)
[2018-06-15 08:09] LABS: HEMATOCRIT 34.4 % (32.4-45.2); HEMOGLOBIN 11.6 GM/dL (10.7-15.3); MCH 27.9 pg (25.7-33.7); MCHC 33.7 g/dl (32.0-36.0); MEAN CELL VOLUME 82.7 fl (80-96); MEAN PLT VOLUME 8.7 fl (7.5-11.1); PLATELET COUNT 380 K/MM3 (134-434); RBC 4.16 M/mm3 (3.60-5.2); RDW 14.9 % (11.6-15.6); WHITE BLOOD COUNT 8.8 K/mm3 (4.0-10.0)
[2018-06-15 08:10] LABS: ALBUMIN 2.2 g/dl (3.4-5.0); ALK PHOS 134 U/L (45-117); ANION GAP 9 MMOL/L (8-16); BILIRUBIN,TOTAL 0.4 mg/dL (0.2-1); BLOOD UREA NITROGEN 8 mg/dL (7-18); CALCIUM 8.2 mg/dL (8.5-10.1); CHLORIDE 102 mmol/L (98-107); CHOLESTEROL 206 mg/dL (50-200); CO2 27 mmol/L (21-32); CREATININE 0.5 mg/dL (0.55-1.3); GLUCOSE,RANDOM 171 mg/dL (74-106); HDL CHOLESTEROL 31 mg/dL (40-60); MAGNESIUM 1.4 mg/dL (1.8-2.4); PHOSPHOROUS 2.5 mg/dL (2.5-4.9); POTASSIUM 3.7 mmol/L (3.5-5.1); SGOT/AST 32 U/L (15-37); SGPT/ALT 32 U/L (13-61); SODIUM 138 mmol/L (136-145); TOT PROT 6.6 g/dl (6.4-8.2); TRIGLYCERIDES 276 mg/dL (0-150)
[2018-06-15] MEDS ORDERED: MAGNESIUM HYDROX 2400MG/30ML ORAL SUSPENSION 30 ML CUP PO PRN (08:14)
[2018-06-15] MEDS ORDERED: MAGNESIUM SULF 50% (8.12 MEQ/2 ML-1 GM VIAL) IVPB ONE (08:14)
--- NOTE | 2018-06-15 08:17 | PN ---
Progress Note, Physician Chief Complaint: AWAKE ALERT C/O CONSTIPATION NIGHT SWEATS AND CHILLS FEVER 100.3 OVERNIGHT - Current Medication List Current Medications: Active Medications Albuterol/Ipratropium (Duoneb -) 1 amp NEB Q4H PRN PRN Reason: SHORTNESS OF BREATH Atorvastatin Calcium (Lipitor -) 80 mg PO HS [facility] Last Admin: 06/14/18 22:27 Dose: 80 mg Clopidogrel Bisulfate (Plavix -) 75 mg PO DAILY [facility] Guaifenesin (Diabetic Tussin Dm -) 10 ml PO Q6H PRN PRN Reason: COUGH Last Admin: 06/15/18 05:43 Dose: 10 mg Heparin Sodium (Porcine) (Heparin -) 5,000 unit SQ TID [facility] Last Admin: 06/15/18 05:45 Dose: 5,000 unit Levofloxacin (Levaquin 750 Mg Premixed Ivpb -) 750 mg in 150 mls @ 100 mls/hr IVPB DAILY [facility]; Protocol Last Admin: 06/14/18 18:42 Dose: 100 mls/hr Vancomycin HCl (Vancomycin (Pre-Docked)) 1,000 mg in 250 mls @ 166.667 mls/hr IVPB Q12H [facility]; Protocol Last Admin: 06/15/18 05:37 Dose: 166.667 mls/hr Insulin Aspart (Novolog Vial Sliding Scale -) 1 vial SQ ACHS [facility]; Protocol Last Admin: 06/15/18 06:07 Dose: Not Given Insulin Detemir (Levemir Vial) 8 units SQ HS [facility] Last Admin: 06/14/18 22:27 Dose: 8 units Loratadine (Claritin -) 10 mg PO DAILY [facility] Losartan Potassium (Cozaar -) 100 mg PO DAILY [facility] Magnesium Hydroxide (Milk Of Magnesia -) 30 ml PO DAILY PRN PRN Reason: CONSTIPATION Magnesium Sulfate (Magnesium Sulfate) 1 gm IVPB ONCE ONE Stop: 06/15/18 08:15 Metformin HCl (Glucophage -) 850 mg PO BID@0700,1630 [facility] Last Admin: 06/15/18 06:52 Dose: 850 mg Metoprolol Succinate (Toprol Xl -) 25 mg PO DAILY [facility] Nicotine (Nicoderm Patch -) 7 mg TD DAILY [facility] Nifedipine (Procardia Xl -) 60 mg PO DAILY [facility] Polyethylene Glycol (Miralax (For Daily Use) -) 17 gm PO DAILY [facility] Ranitidine HCl (Zantac -) 150 mg PO BID [facility] Sitagliptin Phosphate (Januvia -) 100 mg PO DAILY@0700 [facility] Last Admin: 06/15/18 06:06 Dose: 100 mg Tiotropium [place] (Spiriva Respimat) 2 puff IH DAILY [facility] - Objective Vital Signs: Vital Signs Temperature 100.5 F H 06/15/18 06:00 Pulse Rate 113 H 06/15/18 06:00 Respiratory Rate 20 06/15/18 06:00 Blood Pressure 145/77 06/15/18 06:00 O2 Sat by Pulse Oximetry (%) 98 06/14/18 21:00 Constitutional: Yes: Mild Distress Eyes: Yes: WNL HENT: Yes: WNL Neck: Yes: WNL Cardiovascular: Yes: Regular Rate and Rhythm Respiratory: Yes: Diminished, Rhonchi Gastrointestinal: Yes: Soft Genitourinary: Yes: WNL Musculoskeletal: Yes: WNL Extremities: Yes: WNL Edema: No Peripheral Pulses WNL: Yes Integumentary: Yes: WNL Wound/Incision: Yes: Clean/Dry Neurological: Yes: WNL ...Motor Strength: WNL Psychiatric: Yes: WNL Labs: CBC, BMP 06/15/18 06:30 INR, PTT INR Cancelled 06/14/18 23:00 Problem List - Problems (1) History of breast cancer in adulthood Code(s): Z85.3 - PERSONAL HISTORY OF MALIGNANT NEOPLASM OF BREAST (2) Hx pulmonary embolism Code(s): Z86.711 - PERSONAL HISTORY OF PULMONARY EMBOLISM (3) CAD (coronary artery disease) Code(s): I25.10 - ATHSCL HEART DISEASE OF [place] CORONARY ARTERY W/O ANG PCTRS (4) Cough Code(s): R05 - COUGH (5) Diabetes Code(s): E11.9 - TYPE 2 DIABETES MELLITUS WITHOUT COMPLICATIONS Qualifiers: Diabetes mellitus type: type 2 (6) Night sweat Code(s): R61 - GENERALIZED HYPERHIDROSIS (7) Smoker Code(s): F17.200 - NICOTINE DEPENDENCE, UNSPECIFIED, UNCOMPLICATED (8) Chest pain Code(s): R07.9 - CHEST PAIN, UNSPECIFIED Assessment/Plan BLOOD CX NEBS 02 SUPPORT IV ABX CHEST AND ABD CT RESULTS PENDING MOM/MIRALAX
[2018-06-15 08:21] LABS: INR 1.25 (0.83-1.09); PROTHROMBIN TIME (PATIENT) 14.8 SEC (9.7-13.0)
[2018-06-15] MEDS ORDERED: ACETAMINOPHEN 325 MG TABLET (FP) PO PRN ×2 (08:53→09:03)
[2018-06-15] MEDS: metoPROLOL SUCCINATE 25 MG TAB.SR.24H (FP) PO SCH (09:32)
[2018-06-15] MEDS: NIFEdipine E.R 60 MG TABLET (UD) PO SCH (09:32)
[2018-06-15] MEDS: RANITIDINE HCL 150 MG TABLET (FP) PO SCH ×2 (09:32→21:47)
[2018-06-15] MEDS: LORATADINE 10 MG TABLET PO SCH ×2 (09:32→09:52)
[2018-06-15] MEDS: LOSARTAN POTASSIUM 50 MG TABLET (FP) PO SCH (09:32)
[2018-06-15] MEDS: CLOPIDOGREL BISULFATE 75 MG TABLET (FP) PO SCH (09:32)
[2018-06-15] MEDS: POLYETHYLENE GLYCOL 3350 119 GM BTL PO SCH (09:33)
[2018-06-15] MEDS: NICOTINE 7 MG/24 HOURS TOPICAL PATCH TD SCH (09:33)
[2018-06-15] MEDS ORDERED: NICOTINE 14 MG/24 HOURS TOPICAL PATCH TD SCH (10:00)
[2018-06-15] MEDS: TIOTROPIUM BROMIDE 2.5 MCG (SPIRIVA) RESPIMAT INHALER IH SCH (10:31)
[2018-06-15] MEDS ORDERED: PT OWN MED DRAWER 7, Y5N ONE (10:32)
--- NOTE | 2018-06-15 10:40 | CON.CARD ---
Consult Consult Specialty:: Cardiology Referred by:: Dr. Lu Reason for Consultation:: h/o pulm embolism rule out CAD - History of Present Illness Chief Complaint: cough History of Present Illness: 57 year old woman with pmh CAD/NM 12/2017 s/p PCI with stents [facility] at that time, followed as outpatient by finishing trimmer, states she had a stress test a few months ago to evaluate residual LAD disease that showed no ischemia and no further PCI was recommended, h/o htn, hld, dmII, breast CA, h/o reported pulm embolism admitted with cough, night sweats, weight loss. pt seen and examined today in nad. feeling better. denies having any chest pain or sob. no pnd, orthopnea or LE edema. no palpitations, lightheadedness, dizziness, syncope, or near syncope. - History Source History Provided By: Patient, Medical Record Limitations to Obtaining History: No Limitations - Past Medical History Cardio/Vascular: Yes: CAD (with stents), HTN, Hyperlipdemia ...LMP: 11/18/11 ...: No Musculoskeletal: Yes: Other (neuropathy) Endocrine: Yes: Diabetes Mellitus - Alcohol/Substance Use Hx Alcohol Use: No - Smoking History Smoking history: Former smoker Have you smoked in the past 12 months: No Aproximately how many cigarettes per day: 10 Home Medications - Allergies Allergies/Adverse Reactions: Allergies Allergy/AdvReac Type Severity Reaction Status Date / Time Penicillins Allergy Verified 06/14/18 13:51 - Home Medications Home Medications: Ambulatory Orders Losartan Potassium 100 mg PO DAILY #0 tablet 10/10/11 Nifedipine ER [Procardia XL -] 60 mg PO DAILY #0 tab.er.24 08/10/12 Tamoxifen Citrate 10 mg PO ASDIR 10/24/15 Albuterol 2.5/Ipratropium 0.5 [Duoneb -] 1 neb IH QID 06/14/18 Atorvastatin Calcium [Lipitor] 10 mg PO HS 06/14/18 Cholecalciferol (Vitamin D3) [Vitamin D3 -] 1,000 unit PO DAILY 06/14/18 Clopidogrel Bisulfate [Plavix -] 75 mg PO DAILY 06/14/18 Metformin HCl [Glucophage] 1,000 mg PO BID 06/14/18 Metoprolol Succinate [Toprol Xl -] 25 mg PO DAILY 06/14/18 Omeprazole Magnesium [Prilosec Otc] 20 mg PO DAILY 06/14/18 Rosuvastatin Calcium [Crestor] 10 mg PO HS 06/14/18 Tiotropium [place] [Spiriva Respimat] 4 gm IH BID 06/14/18 hydrOXYzine HCL [Atarax -] 25 mg PO TID 06/14/18 Family Disease History - Family Disease History Family History: Denies Review of Systems - Review of Systems Constitutional: reports: Chills, Diaphoresis, Fever, Unintentional Wgt. Loss. denies: No Symptoms, Lethargy, Loss of Appetite, Malaise, Night Sweats, Weakness , Other Eyes: denies: No Symptoms, Blind Spots, Blurred Vision, Double Vision, Eye Pain , Floaters, Photophobia, Recent Change in Vision, Other HENT: denies: No Symptoms, Difficult Swallowing, Ear Discharge, Ear Pain, Epistaxis, Gingival Bleeding, Hearing Loss, Mouth Swelling, Nasal Congestion, Ocular Prosthesis, Throat Pain, Toothache, Ringing in Ears, Other Neck: denies: No Symptoms, Decreased ROM, Lumps, Pain on Movement, Stiffness, Swollen Glands, Tenderness, Other Cardiovascular: denies: No Symptoms, Chest Pain, Edema, Palpitations, Shortness of Breath, Other Respiratory: reports: Cough. denies: No Symptoms, Exercise Intolerance, Hemoptysis, Orthopnea, PND, Snoring, SOB, SOB on Exertion, Wheezing, Other Gastrointestinal: denies: No Symptoms, Abdominal Pain, Bloating, Constipation, Diarrhea, Dysphagia, Indigestion, Melena, Nausea, Rectal Bleeding, Vomiting, Vomiting Blood, Other Genitourinary: denies: No Symptoms, Burning, Discharge, Dysuria, Flank Pain, Frequency, Hematuria, Incontinence, Lesions, Menses, Pain, Testicular Mass, Testicular Pain, Testicular Swelling, Urgency, Vaginal Bleeding, Other Breasts: denies: No Symptoms Reported, See HPI, Breast Implants, Discharge from Nipple, Lumps, Pain, Skin Changes, Other Musculoskeletal: denies: No Symptoms, Back Pain, Crepitus, Decreased ROM, Extremity Pain, Joint Pain, Joint Swelling, Muscle Pain, Muscle Cramps, Muscle Weakness, Other Integumentary: denies: No Symptoms, Blister, Bruising, Change in Color, Eczema, Erythema, Incision, Lesions, Lump, Pallor, Pruritis, Rash, Wound, Other Neurological: denies: No Symptoms, Change in LOC, Change in Speech, Confusion, Dizziness, Headache, Incoordination, Numbness, Parasthesia, Pre-Existing Deficit , Seizure, Syncope, Tremors, Unsteady Gait, Weakness, Other Endocrine: denies: No Symptoms, Excessive Sweating, Flushing, Increased Hunger, Increased Thirst, Intolerance to Cold, Intolerance to Heat, Unexplained Weight Gain, Unexplained Weight Loss, Other Hematology/Lymphatic: denies: No Symptoms, Easily Bruised, Excessive Bleeding, Swollen Glands, Other Psychiatric: denies: No Symptoms, Altered Sleep Pattern, Anxiety, Depression, Hallucinations, Panic, Paranoia, Suicidal, Other - Risk Factors Known Risk Factors: Yes: Diabetes Mellitus, Hypercholesterolemia, Hypertension, Prior NM /Emb Stroke Vital Signs: Vital Signs Temperature 100.5 F H 06/15/18 06:00 Pulse Rate 113 H 06/15/18 06:00 Respiratory Rate 20 06/15/18 06:00 Blood Pressure 145/77 06/15/18 06:00 O2 Sat by Pulse Oximetry (%) 98 06/14/18 21:00 Constitutional: Yes: Well Nourished Eyes: Yes: WNL, Conjunctiva Clear, EOM Intact HENT: Yes: WNL, Atraumatic, Normocephalic Neck: Yes: WNL, Supple, Trachea Midline Respiratory: Yes: WNL, Regular, CTA Bilaterally. No: Rales, Rhonchi, Wheezes Gastrointestinal: Yes: WNL, Normal Bowel Sounds, Soft. No: Distention, Tenderness Renal/: Yes: WNL Cardiovascular: Yes: WNL, Regular Rate and Rhythm. No: Bradycardia, Tachycardia , Pulse Irregular, Gallop, Rub, Varicosities JVD: No Carotid Bruit: No PMI: Non-Displaced Heart Sounds: Yes: S1, S2. No: Split S2, S3, S4, Clicks, Gallop, Rub, Bruit Murmur: No: Systolic Murmur, Diastolic Murmur Musculoskeletal: Yes: WNL Extremities: Yes: WNL Edema: No Peripheral Pulses WNL: Yes Peripheral Pulses: 2+ Left Doralis Pedis, 2+ Right Dorsalis Pedis Neurological: Yes: Alert, Oriented Psychiatric: Yes: Alert, Oriented - Other Data Labs, Other Data: CBC, BMP 06/15/18 06:30 06/15/18 06:30 INR, PTT INR 1.25 (0.83-1.09) H 06/15/18 06:30 Troponin, BNP 06/15/18 06:30 Troponin I < 0.02 Troponin, BNP 06/15/18 06:30 Troponin I < 0.02 ekg-not in chart Imaging - Results Chest X-ray: Report Reviewed, Image Reviewed EKG: Report Reviewed, Image Reviewed Other: Report Reviewed, Image Reviewed Assessment/Plan 57 year old woman with pmh CAD/NM 12/2017 s/p PCI with stents [facility] at that time, followed as outpatient by finishing trimmer, states she had a stress test a few months ago to evaluate residual LAD disease that showed no ischemia and no further PCI was recommended, h/o htn, hld, dmII, breast CA, h/o reported pulm embolism admitted with cough, night sweats, weight loss. denies having any chest pain or sob. no pnd, orthopnea or LE edema. no palpitations, lightheadedness, dizziness, syncope, or near syncope. Known CAD/NM multivessel PCI 12/2017 at [facility] with residual non-obs CAD, with no ischemia on recent stress test -no current concerning symptoms from a cardiac standpoint -cont home medical regimen, ASA, Plavix, statin, metoprolol -outpatient fup with her finishing trimmer -no additional inpatient cardiac work up needed at this time. Please call with any additional questions.
--- NOTE | 2018-06-15 10:57 | CON.PULM ---
Consult Consult Specialty:: PULM/CCM Referred by:: PMD Reason for Consultation:: SOB - History of Present Illness Chief Complaint: SOB History of Present Illness: 57 F, previous history of Left breast CA (treated with lumpectomy, 16 rounds of Chemo and RT to the left breast in 2012. Active smoker of about 2 to 3 cigarettes. Sent by her PMD due to 2 weeks of cough with greenish sputum production. Denies hemoptysis. No travel history or sick contacts. She does snore and does have some risks for OSAS, but have never been formally tested. CT: Left cavitary lesion / consolidation / calcified granuloma on the RUL - History Source History Provided By: Patient Limitations to Obtaining History: No Limitations - Past Medical History Cardio/Vascular: Yes: CAD (with stents), HTN, Hyperlipdemia Pulmonary: Yes: Pulmonary Embolus. No: Bronchitis, Cancer, COPD, O2 Dependent, Pneumonia, Previously Intubated, Pulmonary Fibrosis, Sleep Apnea ...LMP: 11/18/11 ...: No Musculoskeletal: Yes: Other (neuropathy) Endocrine: Yes: Diabetes Mellitus - Alcohol/Substance Use Hx Alcohol Use: No - Smoking History Smoking history: Former smoker Have you smoked in the past 12 months: No Aproximately how many cigarettes per day: 10 Home Medications - Allergies Allergies/Adverse Reactions: Allergies Allergy/AdvReac Type Severity Reaction Status Date / Time Penicillins Allergy Verified 06/14/18 13:51 - Home Medications Home Medications: Ambulatory Orders Losartan Potassium 100 mg PO DAILY #0 tablet 10/10/11 Nifedipine ER [Procardia XL -] 60 mg PO DAILY #0 tab.er.24 08/10/12 Tamoxifen Citrate 10 mg PO ASDIR 10/24/15 Albuterol 2.5/Ipratropium 0.5 [Duoneb -] 1 neb IH QID 06/14/18 Atorvastatin Calcium [Lipitor] 10 mg PO HS 06/14/18 Cholecalciferol (Vitamin D3) [Vitamin D3 -] 1,000 unit PO DAILY 06/14/18 Clopidogrel Bisulfate [Plavix -] 75 mg PO DAILY 06/14/18 Metformin HCl [Glucophage] 1,000 mg PO BID 06/14/18 Metoprolol Succinate [Toprol Xl -] 25 mg PO DAILY 06/14/18 Omeprazole Magnesium [Prilosec Otc] 20 mg PO DAILY 06/14/18 Rosuvastatin Calcium [Crestor] 10 mg PO HS 06/14/18 Tiotropium [place] [Spiriva Respimat] 4 gm IH BID 06/14/18 hydrOXYzine HCL [Atarax -] 25 mg PO TID 06/14/18 Review of Systems - Review of Systems Constitutional: reports: Malaise. denies: Chills, Fever, Night Sweats Eyes: reports: No Symptoms HENT: reports: No Symptoms Neck: reports: No Symptoms Cardiovascular: reports: Shortness of Breath. denies: Chest Pain, Edema, Palpitations Respiratory: reports: Cough, Snoring, SOB, SOB on Exertion. denies: Hemoptysis , Wheezing Gastrointestinal: reports: No Symptoms Genitourinary: reports: No Symptoms Breasts: reports: No Symptoms Reported Musculoskeletal: reports: No Symptoms Integumentary: reports: No Symptoms Neurological: reports: No Symptoms Endocrine: reports: No Symptoms Hematology/Lymphatic: reports: No Symptoms Psychiatric: reports: No Symptoms Physical Exam Vital Sings: Vital Signs Temperature 100.5 F H 06/15/18 06:00 Pulse Rate 113 H 06/15/18 06:00 Respiratory Rate 20 06/15/18 06:00 Blood Pressure 145/77 06/15/18 06:00 O2 Sat by Pulse Oximetry (%) 98 06/14/18 21:00 Constitutional: Yes: No Distress, Calm Eyes: Yes: Conjunctiva Clear, EOM Intact HENT: Yes: Atraumatic, Normocephalic Neck: Yes: Supple, Trachea Midline Cardiovascular: Yes: Regular Rate and Rhythm Respiratory: Yes: Cough, Diminished. No: Accessory Muscle Use, Rales, Rhonchi, SOB, SOB on Exertion, Stridor, Tachypnea, Wheezes ...Inspection: Yes: WNL ...Clubbing: No Gastrointestinal: Yes: Normal Bowel Sounds, Soft, Abdomen, Obese Renal/: Yes: WNL Musculoskeletal: Yes: WNL Extremities: Yes: WNL Edema: No Peripheral Pulses WNL: Yes Integumentary: Yes: WNL Neurological: Yes: WNL, Alert, Oriented ...Motor Strength: WNL Psychiatric: Yes: WNL, Alert, Oriented Labs: CBC, BMP 06/15/18 06:30 06/15/18 06:30 Imaging - Results Chest X-ray: Report Reviewed, Image Reviewed Cat Scan: Report Reviewed, Image Reviewed Assessment/Plan IMP: Left lung consolidation / cavitary lesion: DDX: infectious / malignancy / component of previous radiation damage suspected R/O PNA Smoker HTN HPL Possible OSAS PLAN: Offered Bronchoscopy: patient has refused for now. Risks and benefits were explained in detail. O2 as needed ABX Per ID Sputum collection if able (her cough is dry) No smoking discussed PFTs once stable after discharge Will need repeat imaging after D/C Will follow Thank you. Dr Wolfe
--- NOTE | 2018-06-15 14:54 | ECHO ---
Name: DEVIN SEE Exam:Adult Echocardiogram Study Date: 06/15/2018 11:48 AM Age: 57 yrs Reason For Study: pulm embolism Height: 60 in Weight: 156 lb BSA: 1.7 m2 MMode/2D Measurements & Calculations IVSd: 0.78 cm Ao root diam: 2.7 cm LVIDd: 4.7 cm LA dimension: 3.3 cm LVIDs: 3.1 cm ACS: 1.7 cm LVPWd: 0.81 cm IVSs: 1.1 cm LVPWs: 1.2 cm EDV(Teich): 102.5 ml ESV(Teich): 38.9 ml Doppler Measurements & Calculations MV E max ramirez: 66.1 cm/sec Ao V2 max: 124.9 cm/sec MV A max ramirez: 93.0 cm/sec Ao max P.2 mmHg MV E/A: 0.71 Ao V2 mean: 91.9 cm/sec Ao mean P.7 mmHg Ao V2 VTI: 23.3 cm Med Peak E' Ramirez: 5.9 cm/sec Med E/e': 11.1 Lat Peak E' Ramirez: 8.0 cm/sec Lat E/e': 8.3 Procedure A complete two-dimensional transthoracic echocardiogram was performed (2D, M-mode, Doppler and color flow Doppler). Left Ventricle The left ventricular size, thickness and function are normal. Ejection Fraction = 60%. E/A reversal c onsistent with but not diagnostic of poor LV compliance. The left ventricular wall motion is normal. Right Ventricle The right ventricle is normal in size and function. Atria Normal left and right atrial size and function. Mitral Valve There is mild mitral annular calcification. There is trivial mitral valve thickening. There is no jez ral regurgitation noted. Tricuspid Valve The tricuspid valve is normal in structure and function. No tricuspid regurgitation. There was insuff icient TR detected to calculate RV systolic pressure. Aortic Valve There is mild aortic valve thickening. No aortic regurgitation is present. Pulmonic Valve The pulmonic valve is not well visualized. Great Vessels The aortic root is normal size. Pericardium/Pleura There is no pericardial effusion. There is no pleural effusion. Interpretation Summary The left ventricular size, thickness and function are normal Ejection Fraction = 60%. The right ventricle is normal in size and function. Normal left and right atrial size and function. There is mild mitral annular calcification. There is trivial mitral valve thickening. There was insufficient TR detected to calculate RV systolic pressure. MD Sebastián Roberts 06/15/2018 02:54 PM
[2018-06-15] MEDS ORDERED: INSULIN (LEVEMIR) 100 UNITS/ML UNITS SQ ONE (18:09)
[2018-06-15] MEDS ORDERED: INSULIN (NOVOLOG) ASPART 100 UNITS/ML 10ML VIAL ONE (18:09)
[2018-06-15] MEDS ORDERED: DEXTROSE 5%-NORMAL SALINE 1,000 ML IV SCH (21:00)
[2018-06-15] MEDS: INSULIN (LEVEMIR) 100 UNITS/ML UNITS SQ SCH (21:47)
[2018-06-15] MEDS: ATORVASTATIN CA 80 MG TABLET (FP) PO SCH (21:47)
[2018-06-16] MEDS: HEPARIN NA (PORCINE) 5,000 UNITS/ML 1ML VIAL SQ SCH ×4 (05:02→23:10)
[2018-06-16] MEDS: VANCOMYCIN 1 GRAM (PRE-DOCKED) 1,000 MG/250 ML BAG IVPB SCH ×2 (05:35→17:39)
[2018-06-16] MEDS: sitaGLIPtin PHOSPHATE 100 MG TABLET (FP) PO SCH (06:07)
[2018-06-16] MEDS: INSULIN SLIDING SCALE (NOVOLOG) 1 VIAL SQ SCH ×4 (06:07→23:09)
--- NOTE | 2018-06-16 09:05 | PN ---
Progress Note, Physician Chief Complaint: AWAKE ALERT SCHEDULED FOR BRONCHOSCOPY 2PM TODAY - Current Medication List Current Medications: Active Medications Acetaminophen (Tylenol -) 650 mg PO Q6H PRN PRN Reason: FEVER Albuterol/Ipratropium (Duoneb -) 1 amp NEB Q4H PRN PRN Reason: SHORTNESS OF BREATH Atorvastatin Calcium (Lipitor -) 80 mg PO HS [facility] Last Admin: 06/15/18 21:47 Dose: 80 mg Clopidogrel Bisulfate (Plavix -) 75 mg PO DAILY [facility] Last Admin: 06/15/18 09:32 Dose: 75 mg Guaifenesin (Diabetic Tussin Dm -) 10 ml PO Q6H PRN PRN Reason: COUGH Last Admin: 06/15/18 21:43 Dose: 10 mg Heparin Sodium (Porcine) (Heparin -) 5,000 unit SQ TID [facility] Last Admin: 06/16/18 05:02 Dose: Not Given Levofloxacin (Levaquin 750 Mg Premixed Ivpb -) 750 mg in 150 mls @ 100 mls/hr IVPB DAILY [facility]; Protocol Last Admin: 06/15/18 09:33 Dose: 100 mls/hr Vancomycin HCl (Vancomycin (Pre-Docked)) 1,000 mg in 250 mls @ 166.667 mls/hr IVPB Q12H [facility]; Protocol Last Admin: 06/16/18 05:35 Dose: 166.667 mls/hr Dextrose/Sodium Chloride (D5-Ns -) 1,000 mls @ 75 mls/hr IV ASDIR [facility] Last Admin: 06/15/18 21:48 Dose: 75 mls/hr Insulin Aspart (Novolog Vial Sliding Scale -) 1 vial SQ ACHS [facility]; Protocol Last Admin: 06/16/18 06:07 Dose: 3 units Insulin Detemir (Levemir Vial) 8 units SQ HS [facility] Last Admin: 06/15/18 21:47 Dose: 8 units Loratadine (Claritin -) 10 mg PO DAILY [facility] Last Admin: 06/15/18 09:52 Dose: Not Given Losartan Potassium (Cozaar -) 100 mg PO DAILY [facility] Last Admin: 06/15/18 09:32 Dose: 100 mg Magnesium Hydroxide (Milk Of Magnesia -) 30 ml PO DAILY PRN PRN Reason: CONSTIPATION Last Admin: 06/15/18 09:33 Dose: 30 ml Metformin HCl (Glucophage -) 850 mg PO BID@0700,1630 [facility] Last Admin: 06/16/18 06:07 Dose: 850 mg Metoprolol Succinate (Toprol Xl -) 25 mg PO DAILY [facility] Last Admin: 06/15/18 09:32 Dose: 25 mg Nicotine (Nicoderm Patch -) 7 mg TD DAILY [facility] Last Admin: 06/15/18 09:33 Dose: 7 mg Nifedipine (Procardia Xl -) 60 mg PO DAILY [facility] Last Admin: 06/15/18 09:32 Dose: 60 mg Polyethylene Glycol (Miralax (For Daily Use) -) 17 gm PO DAILY [facility] Last Admin: 06/15/18 09:33 Dose: 17 grams Ranitidine HCl (Zantac -) 150 mg PO BID [facility] Last Admin: 06/15/18 21:47 Dose: 150 mg Sitagliptin Phosphate (Januvia -) 100 mg PO DAILY@0700 [facility] Last Admin: 06/16/18 06:07 Dose: 100 mg Tiotropium [place] (Spiriva Respimat) 2 puff IH DAILY [facility] Last Admin: 06/15/18 10:31 Dose: Not Given - Objective Vital Signs: Vital Signs Temperature 98.8 F 06/16/18 06:00 Pulse Rate 97 H 06/16/18 06:00 Respiratory Rate 18 06/16/18 06:00 Blood Pressure 116/75 06/16/18 06:00 O2 Sat by Pulse Oximetry (%) 97 06/15/18 21:00 Constitutional: Yes: No Distress Eyes: Yes: WNL HENT: Yes: WNL Neck: Yes: WNL Cardiovascular: Yes: Regular Rate and Rhythm Respiratory: Yes: Cough Gastrointestinal: Yes: Soft Genitourinary: Yes: WNL Musculoskeletal: Yes: WNL Extremities: Yes: WNL Edema: No Peripheral Pulses WNL: Yes Integumentary: Yes: WNL Wound/Incision: Yes: Clean/Dry Neurological: Yes: WNL ...Motor Strength: WNL Psychiatric: Yes: WNL Labs: CBC, BMP 06/15/18 06:30 06/15/18 06:30 INR, PTT INR 1.25 (0.83-1.09) H 06/15/18 06:30 Problem List - Problems (1) History of breast cancer in adulthood Code(s): Z85.3 - PERSONAL HISTORY OF MALIGNANT NEOPLASM OF BREAST (2) Hx pulmonary embolism Code(s): Z86.711 - PERSONAL HISTORY OF PULMONARY EMBOLISM (3) CAD (coronary artery disease) Code(s): I25.10 - ATHSCL HEART DISEASE OF [place] CORONARY ARTERY W/O ANG PCTRS (4) Cough Code(s): R05 - COUGH (5) Diabetes Code(s): E11.9 - TYPE 2 DIABETES MELLITUS WITHOUT COMPLICATIONS Qualifiers: Diabetes mellitus type: type 2 (6) Night sweat Code(s): R61 - GENERALIZED HYPERHIDROSIS (7) Smoker Code(s): F17.200 - NICOTINE DEPENDENCE, UNSPECIFIED, UNCOMPLICATED (8) Chest pain Code(s): R07.9 - CHEST PAIN, UNSPECIFIED Assessment/Plan BRONCHOSCOPY 2PM TODAY PULM EVAL APPRECIATED LUNG MASS VERSUS SCARRING VERSUS INFECTION? DM CONTROL NPO ON IVF FOR NOW CAN DC IVF AFTER BRONCHOSCOPY AND RESTART ADA OOB TO CHAIR
[2018-06-16] MEDS: CLOPIDOGREL BISULFATE 75 MG TABLET (FP) PO SCH (10:40)
[2018-06-16] MEDS: LORATADINE 10 MG TABLET PO SCH ×2 (10:40→10:51)
[2018-06-16] MEDS: LOSARTAN POTASSIUM 50 MG TABLET (FP) PO SCH (10:40)
[2018-06-16] MEDS: TIOTROPIUM BROMIDE 2.5 MCG (SPIRIVA) RESPIMAT INHALER IH SCH ×2 (10:40→10:51)
[2018-06-16] MEDS: NIFEdipine E.R 60 MG TABLET (UD) PO SCH (10:40)
[2018-06-16] MEDS: RANITIDINE HCL 150 MG TABLET (FP) PO SCH ×2 (10:40→23:02)
[2018-06-16] MEDS: NICOTINE 7 MG/24 HOURS TOPICAL PATCH TD SCH (10:40)
[2018-06-16] MEDS: POLYETHYLENE GLYCOL 3350 119 GM BTL PO SCH (10:40)
[2018-06-16] MEDS: metoPROLOL SUCCINATE 25 MG TAB.SR.24H (FP) PO SCH (10:41)
--- NOTE | 2018-06-16 13:41 | PN ---
Progress Note (short form) - Note Progress Note: PULMONARY Denies shortness of breath or chest pain. No fevers recorded. Vital Signs Period Temp Pulse Resp BP Sys/Mercado Pulse Ox Last 24 Hr 98.2 F-98.8 F 88-101 18-20 100-129/71-82 96-97 Gen: NAD at rest Heart: RRR Lung: decreased breath sounds at the bases Abd: soft, nontender Ext: no edema CBC, BMP 06/15/18 06:30 06/15/18 06:30 Active Medications Acetaminophen (Tylenol -) 650 mg PO Q6H PRN PRN Reason: FEVER Albuterol/Ipratropium (Duoneb -) 1 amp NEB Q4H PRN PRN Reason: SHORTNESS OF BREATH Atorvastatin Calcium (Lipitor -) 80 mg PO HS [facility] Last Admin: 06/15/18 21:47 Dose: 80 mg Clopidogrel Bisulfate (Plavix -) 75 mg PO DAILY [facility] Last Admin: 06/16/18 10:40 Dose: Not Given Guaifenesin (Diabetic Tussin Dm -) 10 ml PO Q6H PRN PRN Reason: COUGH Last Admin: 06/15/18 21:43 Dose: 10 mg Heparin Sodium (Porcine) (Heparin -) 5,000 unit SQ TID [facility] Last Admin: 06/16/18 05:02 Dose: Not Given Levofloxacin (Levaquin 750 Mg Premixed Ivpb -) 750 mg in 150 mls @ 100 mls/hr IVPB DAILY [facility]; Protocol Last Admin: 06/16/18 10:39 Dose: 100 mls/hr Vancomycin HCl (Vancomycin (Pre-Docked)) 1,000 mg in 250 mls @ 166.667 mls/hr IVPB Q12H [facility]; Protocol Last Admin: 06/16/18 05:35 Dose: 166.667 mls/hr Dextrose/Sodium Chloride (D5-Ns -) 1,000 mls @ 75 mls/hr IV ASDIR [facility] Last Admin: 06/15/18 21:48 Dose: 75 mls/hr Insulin Aspart (Novolog Vial Sliding Scale -) 1 vial SQ ACHS [facility]; Protocol Last Admin: 06/16/18 11:59 Dose: Not Given Insulin Detemir (Levemir Vial) 8 units SQ HS [facility] Last Admin: 06/15/18 21:47 Dose: 8 units Loratadine (Claritin -) 10 mg PO DAILY [facility] Last Admin: 06/16/18 10:51 Dose: Not Given Losartan Potassium (Cozaar -) 100 mg PO DAILY [facility] Last Admin: 06/16/18 10:40 Dose: 100 mg Magnesium Hydroxide (Milk Of Magnesia -) 30 ml PO DAILY PRN PRN Reason: CONSTIPATION Last Admin: 06/15/18 09:33 Dose: 30 ml Metformin HCl (Glucophage -) 850 mg PO BID@0700,1630 [facility] Last Admin: 06/16/18 06:07 Dose: 850 mg Metoprolol Succinate (Toprol Xl -) 25 mg PO DAILY [facility] Last Admin: 06/16/18 10:41 Dose: 25 mg Nicotine (Nicoderm Patch -) 7 mg TD DAILY [facility] Last Admin: 06/16/18 10:40 Dose: 7 mg Nifedipine (Procardia Xl -) 60 mg PO DAILY [facility] Last Admin: 06/16/18 10:40 Dose: 60 mg Polyethylene Glycol (Miralax (For Daily Use) -) 17 gm PO DAILY [facility] Last Admin: 06/16/18 10:40 Dose: Not Given Ranitidine HCl (Zantac -) 150 mg PO BID [facility] Last Admin: 06/16/18 10:40 Dose: 150 mg Sitagliptin Phosphate (Januvia -) 100 mg PO DAILY@0700 [facility] Last Admin: 06/16/18 06:07 Dose: 100 mg Tiotropium [place] (Spiriva Respimat) 2 puff IH DAILY [facility] Last Admin: 06/16/18 10:51 Dose: Not Given A/P Left Upper Lobe Cavitary Lesion r/o Pneumonia r/o Radiation Pneumonitis HTN Hyperlipidemia Smoker - continue antibiotics - f/u cultures - will proceed with bronchoscopy - discussed with pt risks/benefits of the procedure and she agrees to proceed
[2018-06-16] MEDS ORDERED: PROPOFOL 20 ML ONE (14:22)
[2018-06-16] MEDS ORDERED: ONDANSETRON 4 MG/2 ML VIAL IVPUSH PRN ×2 (14:37→15:25)
--- NOTE | 2018-06-16 14:41 | PROC ---
Procedure Note Procedure: BRONCHOSCOPY NOTE After discussing the risks and benefits of the procedure including bleeding and pneumothorax, informed consent was obtained. Pt was placed under general anesthesia and intubated with size 8.0 ETT by anesthesia. 3Touch video bronchoscope was passed via the ETT and the airways were examined down to the subsegmental level. There were no endobronchial lesions noted in the right lung. The right lower lobe medial segment was collapsed, unable to visualize the lumen. There were thick yellowish secretions along the left mainstem bronchus coming from the left upper lobe which were easily lavaged. Single forcep biopsy taken from the anterior segment of the left upper lobe with immediate purulent bloody return. Area was then lavaged with iced saline with hemostasis achieved. Area visualized until no further bleeding noted. Bronchoscope then withdrawn and procedure terminated. Pre-op Dx: lung mass Post-op Dx: r/o pneumonia/lung abscess Plan: - f/u cultures, cytology and pathology Bennett Gutierrez MD
[2018-06-16] MEDS ORDERED: LACTATED RINGERS SOLUTION 1,000 ML IV SCH ×2 (14:45→15:25)
[2018-06-16] MEDS ORDERED: ALBUTEROL SO4 2.5/IPRATROPIUM 0.5 INH SOL 3 ML VIAL.NEB. NEB PRN (15:25)
[2018-06-16] MEDS ORDERED: guaiFENesin/D-M SUGAR-FREE/ACLHOL-FREE 118 ML BOTTLE PO PRN (15:25)
[2018-06-16] MEDS ORDERED: ACETAMINOPHEN 325 MG TABLET (FP) PO PRN (15:25)
[2018-06-16] MEDS ORDERED: DEXTROSE 5%-NORMAL SALINE 1,000 ML IV SCH (15:25)
[2018-06-16] MEDS ORDERED: MAGNESIUM HYDROX 2400MG/30ML ORAL SUSPENSION 30 ML CUP PO PRN (15:25)
[2018-06-16] MEDS: BENZOCAINE/MENTH/CETYLPYRD CL 1 EACH LOZENGE MM PRN ×2 (17:38→23:01)
[2018-06-16] MEDS: PHENOL 177 ML SPRAY BOTTLE MM SCH ×3 (17:38→23:01)
[2018-06-16] MEDS: ATORVASTATIN CA 80 MG TABLET (FP) PO SCH (23:02)
[2018-06-16] MEDS: INSULIN (LEVEMIR) 100 UNITS/ML UNITS SQ SCH (23:09)
[2018-06-16] MEDS ORDERED: SODIUM CHLORIDE 1,000 ML IV SCH (23:15)
[2018-06-17] MEDS: HEPARIN NA (PORCINE) 5,000 UNITS/ML 1ML VIAL SQ SCH ×3 (05:42→21:48)
[2018-06-17] MEDS: VANCOMYCIN 1 GRAM (PRE-DOCKED) 1,000 MG/250 ML BAG IVPB SCH ×2 (05:42→18:03)
[2018-06-17] MEDS: sitaGLIPtin PHOSPHATE 100 MG TABLET (FP) PO SCH (06:07)
[2018-06-17] MEDS: INSULIN SLIDING SCALE (NOVOLOG) 1 VIAL SQ SCH ×4 (06:07→22:00)
[2018-06-17 07:21] LABS: HEMATOCRIT 32.7 % (32.4-45.2); HEMOGLOBIN 10.7 GM/dL (10.7-15.3); MCH 27.3 pg (25.7-33.7); MCHC 32.7 g/dl (32.0-36.0); MEAN CELL VOLUME 83.7 fl (80-96); MEAN PLT VOLUME 8.9 fl (7.5-11.1); PLATELET COUNT 392 K/MM3 (134-434); RBC 3.91 M/mm3 (3.60-5.2); RDW 15.1 % (11.6-15.6); WHITE BLOOD COUNT 10.7 K/mm3 (4.0-10.0)
[2018-06-17 08:33] LABS: ANION GAP 8 MMOL/L (8-16); BLOOD UREA NITROGEN 14 mg/dL (7-18); CALCIUM 8.2 mg/dL (8.5-10.1); CHLORIDE 107 mmol/L (98-107); CO2 25 mmol/L (21-32); CREATININE 0.7 mg/dL (0.55-1.3); GLUCOSE,RANDOM 261 mg/dL (74-106); SODIUM 140 mmol/L (136-145)
[2018-06-17] MEDS: PHENOL 177 ML SPRAY BOTTLE MM SCH ×4 (10:43→21:49)
[2018-06-17] MEDS: LORATADINE 10 MG TABLET PO SCH (10:43)
[2018-06-17] MEDS: metoPROLOL SUCCINATE 25 MG TAB.SR.24H (FP) PO SCH (10:47)
[2018-06-17] MEDS: LOSARTAN POTASSIUM 50 MG TABLET (FP) PO SCH (10:47)
[2018-06-17] MEDS: RANITIDINE HCL 150 MG TABLET (FP) PO SCH ×2 (10:47→21:47)
[2018-06-17] MEDS: NICOTINE 7 MG/24 HOURS TOPICAL PATCH TD SCH (10:47)
[2018-06-17] MEDS: NIFEdipine E.R 60 MG TABLET (UD) PO SCH (10:47)
[2018-06-17] MEDS: TIOTROPIUM BROMIDE 2.5 MCG (SPIRIVA) RESPIMAT INHALER IH SCH (10:48)
[2018-06-17] MEDS: POLYETHYLENE GLYCOL 3350 119 GM BTL PO SCH (10:48)
[2018-06-17] MEDS: CLOPIDOGREL BISULFATE 75 MG TABLET (FP) PO SCH (10:53)
--- NOTE | 2018-06-17 11:14 | PN ---
Progress Note (short form) - Note Progress Note: Denies shortness of breath or chest pain. No fevers recorded. Slight blood tinged sputum. Intake & Output 06/14/18 06/15/18 06/16/18 06/17/18 23:59 23:59 23:59 23:59 Intake Total 887 223 4657 1275 Output Total 0 Balance 397 007 6630 1275 Weight 156 lb 3 oz 156 lb Last Vital Signs Temp Pulse Resp BP Pulse Ox 97.9 F 79 18 107/59 L 97 06/17/18 06:00 06/17/18 06:00 06/17/18 06:00 06/17/18 06:00 06/16/18 21:00 Active Medications Acetaminophen (Tylenol -) 650 mg PO Q6H PRN PRN Reason: FEVER Albuterol/Ipratropium (Duoneb -) 1 amp NEB Q4H PRN PRN Reason: SHORTNESS OF BREATH Atorvastatin Calcium (Lipitor -) 80 mg PO HS [facility] Last Admin: 06/16/18 23:02 Dose: 80 mg Benzocaine/Menthol (Cepacol Lozenge -) 1 each MM Q2H PRN PRN Reason: SORE THROAT Last Admin: 06/16/18 23:01 Dose: 1 each Clopidogrel Bisulfate (Plavix -) 75 mg PO DAILY [facility] Last Admin: 06/17/18 10:53 Dose: 75 mg Fentanyl (Sublimaze Injection -) 25 mcg IVPUSH [id number] PRN PRN Reason: PAIN-PACU ORDER X 4 DOSES ONLY Guaifenesin (Diabetic Tussin Dm -) 10 ml PO Q6H PRN PRN Reason: COUGH Heparin Sodium (Porcine) (Heparin -) 5,000 unit SQ TID [facility] Last Admin: 06/17/18 05:42 Dose: Not Given Lactated Ringer's (Lactated Ringers Solution) 1,000 mls @ 125 mls/hr IV ASDIR [facility] Last Admin: 06/16/18 17:39 Dose: Not Given Levofloxacin (Levaquin 750 Mg Premixed Ivpb -) 750 mg in 150 mls @ 100 mls/hr IVPB DAILY [facility]; Protocol Last Admin: 06/17/18 10:46 Dose: 100 mls/hr Vancomycin HCl (Vancomycin (Pre-Docked)) 1,000 mg in 250 mls @ 166.667 mls/hr IVPB Q12H [facility]; Protocol Last Admin: 06/17/18 05:42 Dose: 166.667 mls/hr Sodium Chloride (Normal Saline -) 1,000 mls @ 75 mls/hr IV ASDIR [facility] Last Admin: 06/16/18 23:30 Dose: 75 mls/hr Insulin Aspart (Novolog Vial Sliding Scale -) 1 vial SQ ACHS [facility]; Protocol Last Admin: 06/17/18 06:07 Dose: 6 units Insulin Detemir (Levemir Vial) 8 units SQ HS [facility] Last Admin: 06/16/18 23:09 Dose: 8 units Loratadine (Claritin -) 10 mg PO DAILY [facility] Last Admin: 06/17/18 10:43 Dose: Not Given Losartan Potassium (Cozaar -) 100 mg PO DAILY [facility] Last Admin: 06/17/18 10:47 Dose: 100 mg Magnesium Hydroxide (Milk Of Magnesia -) 30 ml PO DAILY PRN PRN Reason: CONSTIPATION Metformin HCl (Glucophage -) 850 mg PO BID@0700,1630 [facility] Last Admin: 06/17/18 06:07 Dose: 850 mg Metoprolol Succinate (Toprol Xl -) 25 mg PO DAILY [facility] Last Admin: 06/17/18 10:47 Dose: 25 mg Nicotine (Nicoderm Patch -) 7 mg TD DAILY [facility] Last Admin: 06/17/18 10:47 Dose: 7 mg Nifedipine (Procardia Xl -) 60 mg PO DAILY [facility] Last Admin: 06/17/18 10:47 Dose: 60 mg Ondansetron HCl (Zofran Injection) 4 mg IVPUSH Q6H PRN PRN Reason: NAUSEA AND/OR VOMITING Phenol/Menthol (Chloraseptic -) 2 spray MM QID [facility] Last Admin: 06/17/18 10:43 Dose: Not Given Polyethylene Glycol (Miralax (For Daily Use) -) 17 gm PO DAILY [facility] Last Admin: 06/17/18 10:48 Dose: Not Given Ranitidine HCl (Zantac -) 150 mg PO BID [facility] Last Admin: 06/17/18 10:47 Dose: 150 mg Sitagliptin Phosphate (Januvia -) 100 mg PO DAILY@0700 [facility] Last Admin: 06/17/18 06:07 Dose: 100 mg Tiotropium [place] (Spiriva Respimat) 2 puff IH DAILY [facility] Last Admin: 06/17/18 10:48 Dose: Not Given Gen: NAD at rest Heart: RRR Lung: decreased breath sounds at the bases Abd: soft, nontender Ext: no edema Laboratory Results - last 24 hr 06/16/18 06/16/18 06/16/18 11:39 16:28 22:56 WBC RBC Hgb Hct MCV MCH MCHC RDW Plt Count MPV Sodium Potassium Chloride Carbon Dioxide Anion Gap BUN Creatinine Creat Clearance w eGFR POC Glucometer 198 308 420 Random Glucose Calcium 06/17/18 06/17/18 06/17/18 00:35 05:36 06:45 WBC 10.7 H RBC 3.91 Hgb 10.7 Hct 32.7 MCV 83.7 MCH 27.3 MCHC 32.7 RDW 15.1 Plt Count 392 MPV 8.9 Sodium Potassium Chloride Carbon Dioxide Anion Gap BUN Creatinine Creat Clearance w eGFR POC Glucometer 394 302 Random Glucose Calcium 06/17/18 06:45 WBC RBC Hgb Hct MCV MCH MCHC RDW Plt Count MPV Sodium 140 Potassium 4.0 Chloride 107 Carbon Dioxide 25 Anion Gap 8 BUN 14 Creatinine 0.7 Creat Clearance w eGFR > 60 POC Glucometer Random Glucose 261 H Calcium 8.2 L A/P Left Upper Lobe Cavitary Lesion r/o Pneumonia r/o Radiation Pneumonitis HTN Hyperlipidemia Smoker R/O Lung Abscess - continue antibiotics - f/u cultures - O2 as needed - Incentive Spirometry Dr Wolfe
[2018-06-17] MEDS ORDERED: PT OWN MED DRAWER 7, Y5N ONE (17:36)
[2018-06-17] MEDS: ATORVASTATIN CA 80 MG TABLET (FP) PO SCH (21:47)
[2018-06-17] MEDS: INSULIN (LEVEMIR) 100 UNITS/ML UNITS SQ SCH (21:49)
[2018-06-17] MEDS ORDERED: MELATONIN 5 MG TABLETS PO ONE (22:19)
[2018-06-18] MEDS: VANCOMYCIN 1 GRAM (PRE-DOCKED) 1,000 MG/250 ML BAG IVPB SCH ×2 (05:31→18:44)
[2018-06-18] MEDS: HEPARIN NA (PORCINE) 5,000 UNITS/ML 1ML VIAL SQ SCH ×3 (05:32→23:01)
[2018-06-18] MEDS: INSULIN SLIDING SCALE (NOVOLOG) 1 VIAL SQ SCH ×4 (06:09→23:05)
[2018-06-18] MEDS: sitaGLIPtin PHOSPHATE 100 MG TABLET (FP) PO SCH (06:09)
--- NOTE | 2018-06-18 08:21 | PN ---
Progress Note, Physician Chief Complaint: AWAKE ALERT NO EVENTS OVERNIGHT - Current Medication List Current Medications: Active Medications Acetaminophen (Tylenol -) 650 mg PO Q6H PRN PRN Reason: FEVER Albuterol/Ipratropium (Duoneb -) 1 amp NEB Q4H PRN PRN Reason: SHORTNESS OF BREATH Atorvastatin Calcium (Lipitor -) 80 mg PO HS [facility] Last Admin: 06/17/18 21:47 Dose: 80 mg Benzocaine/Menthol (Cepacol Lozenge -) 1 each MM Q2H PRN PRN Reason: SORE THROAT Last Admin: 06/16/18 23:01 Dose: 1 each Clopidogrel Bisulfate (Plavix -) 75 mg PO DAILY [facility] Last Admin: 06/17/18 10:53 Dose: 75 mg Fentanyl (Sublimaze Injection -) 25 mcg IVPUSH [id number] PRN PRN Reason: PAIN-PACU ORDER X 4 DOSES ONLY Guaifenesin (Diabetic Tussin Dm -) 10 ml PO Q6H PRN PRN Reason: COUGH Heparin Sodium (Porcine) (Heparin -) 5,000 unit SQ TID [facility] Last Admin: 06/18/18 05:32 Dose: 5,000 unit Levofloxacin (Levaquin 750 Mg Premixed Ivpb -) 750 mg in 150 mls @ 100 mls/hr IVPB DAILY [facility]; Protocol Last Admin: 06/17/18 10:46 Dose: 100 mls/hr Vancomycin HCl (Vancomycin (Pre-Docked)) 1,000 mg in 250 mls @ 166.667 mls/hr IVPB Q12H [facility]; Protocol Last Admin: 06/18/18 05:31 Dose: 166.667 mls/hr Insulin Aspart (Novolog Vial Sliding Scale -) 1 vial SQ ACHS [facility]; Protocol Last Admin: 06/18/18 06:09 Dose: 3 units Insulin Detemir (Levemir Vial) 8 units SQ HS [facility] Last Admin: 06/17/18 21:49 Dose: 8 units Lactobacillus Acidophilus (Bacid -) 1 tab PO DAILY [facility] Loratadine (Claritin -) 10 mg PO DAILY [facility] Last Admin: 06/17/18 10:43 Dose: Not Given Losartan Potassium (Cozaar -) 100 mg PO DAILY [facility] Last Admin: 06/17/18 10:47 Dose: 100 mg Magnesium Hydroxide (Milk Of Magnesia -) 30 ml PO DAILY PRN PRN Reason: CONSTIPATION Metformin HCl (Glucophage -) 850 mg PO BID@0700,1630 [facility] Last Admin: 06/18/18 06:16 Dose: 850 mg Metoprolol Succinate (Toprol Xl -) 25 mg PO DAILY [facility] Last Admin: 06/17/18 10:47 Dose: 25 mg Nicotine (Nicoderm Patch -) 7 mg TD DAILY [facility] Last Admin: 06/17/18 10:47 Dose: 7 mg Nifedipine (Procardia Xl -) 60 mg PO DAILY [facility] Last Admin: 06/17/18 10:47 Dose: 60 mg Ondansetron HCl (Zofran Injection) 4 mg IVPUSH Q6H PRN PRN Reason: NAUSEA AND/OR VOMITING Phenol/Menthol (Chloraseptic -) 2 spray MM QID [facility] Last Admin: 06/17/18 21:49 Dose: Not Given Polyethylene Glycol (Miralax (For Daily Use) -) 17 gm PO DAILY [facility] Last Admin: 06/17/18 10:48 Dose: Not Given Ranitidine HCl (Zantac -) 150 mg PO BID [facility] Last Admin: 06/17/18 21:47 Dose: 150 mg Sitagliptin Phosphate (Januvia -) 100 mg PO DAILY@0700 [facility] Last Admin: 06/18/18 06:09 Dose: 100 mg Tiotropium [place] (Spiriva Respimat) 2 puff IH DAILY [facility] Last Admin: 06/17/18 10:48 Dose: Not Given - Objective Vital Signs: Vital Signs Temperature 99 F 06/18/18 06:41 Pulse Rate 98 H 06/18/18 06:41 Respiratory Rate 20 06/18/18 06:41 Blood Pressure 131/67 06/18/18 06:41 O2 Sat by Pulse Oximetry (%) 95 06/17/18 21:00 Constitutional: Yes: No Distress Cardiovascular: Yes: Regular Rate and Rhythm Respiratory: Yes: CTA Bilaterally, Cough Gastrointestinal: Yes: Soft Genitourinary: Yes: WNL Musculoskeletal: Yes: Muscle Weakness Extremities: Yes: WNL Edema: No Peripheral Pulses WNL: Yes Integumentary: Yes: WNL Wound/Incision: Yes: Clean/Dry Neurological: Yes: WNL ...Motor Strength: WNL Psychiatric: Yes: WNL Labs: CBC, BMP 06/17/18 06:45 06/17/18 06:45 INR, PTT INR 1.25 (0.83-1.09) H 06/15/18 06:30 Problem List - Problems (1) History of breast cancer in adulthood Code(s): Z85.3 - PERSONAL HISTORY OF MALIGNANT NEOPLASM OF BREAST (2) Hx pulmonary embolism Code(s): Z86.711 - PERSONAL HISTORY OF PULMONARY EMBOLISM (3) CAD (coronary artery disease) Code(s): I25.10 - ATHSCL HEART DISEASE OF [place] CORONARY ARTERY W/O ANG PCTRS (4) Cough Code(s): R05 - COUGH (5) Diabetes Code(s): E11.9 - TYPE 2 DIABETES MELLITUS WITHOUT COMPLICATIONS Qualifiers: Diabetes mellitus type: type 2 (6) Night sweat Code(s): R61 - GENERALIZED HYPERHIDROSIS (7) Smoker Code(s): F17.200 - NICOTINE DEPENDENCE, UNSPECIFIED, UNCOMPLICATED (8) Chest pain Code(s): R07.9 - CHEST PAIN, UNSPECIFIED Qualifiers: Chest pain type: unspecified Qualified Code(s): R07.9 - Chest pain, unspecified Assessment/Plan PULM EVAL APPRECIATED LUNG MASS VERSUS SCARRING VERSUS INFECTION? DM CONTROL IV ABX AWAIT CULTURES OOB TO CHAIR
[2018-06-18] MEDS ORDERED: PT OWN MED DRAWER 7, Y5N ONE (10:15)
[2018-06-18] MEDS: PHENOL 177 ML SPRAY BOTTLE MM SCH ×4 (10:21→23:01)
[2018-06-18] MEDS: LACTOBACILLUS ACIDOPHILUS 1 TABLET PO SCH (10:22)
[2018-06-18] MEDS: LORATADINE 10 MG TABLET PO SCH (10:22)
[2018-06-18] MEDS: RANITIDINE HCL 150 MG TABLET (FP) PO SCH ×2 (10:22→23:00)
[2018-06-18] MEDS: LOSARTAN POTASSIUM 50 MG TABLET (FP) PO SCH (10:22)
[2018-06-18] MEDS: NICOTINE 7 MG/24 HOURS TOPICAL PATCH TD SCH (10:22)
[2018-06-18] MEDS: CLOPIDOGREL BISULFATE 75 MG TABLET (FP) PO SCH (10:22)
[2018-06-18] MEDS: metoPROLOL SUCCINATE 25 MG TAB.SR.24H (FP) PO SCH (10:23)
[2018-06-18] MEDS: POLYETHYLENE GLYCOL 3350 119 GM BTL PO SCH (10:23)
[2018-06-18] MEDS: NIFEdipine E.R 60 MG TABLET (UD) PO SCH (10:24)
[2018-06-18] MEDS: TIOTROPIUM BROMIDE 2.5 MCG (SPIRIVA) RESPIMAT INHALER IH SCH (10:24)
--- NOTE | 2018-06-18 14:25 | PN ---
Progress Note, Physician History of Present Illness: PULMONARY ALERT,NO DISTRESS,-COUGH,-SOB - Current Medication List Current Medications: Active Medications Acetaminophen (Tylenol -) 650 mg PO Q6H PRN PRN Reason: FEVER Albuterol/Ipratropium (Duoneb -) 1 amp NEB Q4H PRN PRN Reason: SHORTNESS OF BREATH Atorvastatin Calcium (Lipitor -) 80 mg PO HS [facility] Last Admin: 06/17/18 21:47 Dose: 80 mg Benzocaine/Menthol (Cepacol Lozenge -) 1 each MM Q2H PRN PRN Reason: SORE THROAT Last Admin: 06/16/18 23:01 Dose: 1 each Clopidogrel Bisulfate (Plavix -) 75 mg PO DAILY [facility] Last Admin: 06/18/18 10:22 Dose: 75 mg Fentanyl (Sublimaze Injection -) 25 mcg IVPUSH [id number] PRN PRN Reason: PAIN-PACU ORDER X 4 DOSES ONLY Guaifenesin (Diabetic Tussin Dm -) 10 ml PO Q6H PRN PRN Reason: COUGH Heparin Sodium (Porcine) (Heparin -) 5,000 unit SQ TID [facility] Last Admin: 06/18/18 05:32 Dose: 5,000 unit Levofloxacin (Levaquin 750 Mg Premixed Ivpb -) 750 mg in 150 mls @ 100 mls/hr IVPB DAILY [facility]; Protocol Last Admin: 06/18/18 10:23 Dose: 100 mls/hr Vancomycin HCl (Vancomycin (Pre-Docked)) 1,000 mg in 250 mls @ 166.667 mls/hr IVPB Q12H [facility]; Protocol Last Admin: 06/18/18 05:31 Dose: 166.667 mls/hr Insulin Aspart (Novolog Vial Sliding Scale -) 1 vial SQ ACHS [facility]; Protocol Last Admin: 06/18/18 11:26 Dose: Not Given Insulin Detemir (Levemir Vial) 8 units SQ HS [facility] Last Admin: 06/17/18 21:49 Dose: 8 units Lactobacillus Acidophilus (Bacid -) 1 tab PO DAILY [facility] Last Admin: 06/18/18 10:22 Dose: 1 tab Loratadine (Claritin -) 10 mg PO DAILY [facility] Last Admin: 06/18/18 10:22 Dose: Not Given Losartan Potassium (Cozaar -) 100 mg PO DAILY [facility] Last Admin: 06/18/18 10:22 Dose: 100 mg Magnesium Hydroxide (Milk Of Magnesia -) 30 ml PO DAILY PRN PRN Reason: CONSTIPATION Metformin HCl (Glucophage -) 850 mg PO BID@0700,1630 [facility] Last Admin: 06/18/18 06:16 Dose: 850 mg Metoprolol Succinate (Toprol Xl -) 25 mg PO DAILY [facility] Last Admin: 06/18/18 10:23 Dose: 25 mg Nicotine (Nicoderm Patch -) 7 mg TD DAILY [facility] Last Admin: 06/18/18 10:22 Dose: 7 mg Nifedipine (Procardia Xl -) 60 mg PO DAILY [facility] Last Admin: 06/18/18 10:24 Dose: 60 mg Ondansetron HCl (Zofran Injection) 4 mg IVPUSH Q6H PRN PRN Reason: NAUSEA AND/OR VOMITING Phenol/Menthol (Chloraseptic -) 2 spray MM QID [facility] Last Admin: 06/18/18 10:21 Dose: Not Given Polyethylene Glycol (Miralax (For Daily Use) -) 17 gm PO DAILY [facility] Last Admin: 06/18/18 10:23 Dose: Not Given Ranitidine HCl (Zantac -) 150 mg PO BID [facility] Last Admin: 06/18/18 10:22 Dose: 150 mg Sitagliptin Phosphate (Januvia -) 100 mg PO DAILY@0700 [facility] Last Admin: 06/18/18 06:09 Dose: 100 mg Tiotropium [place] (Spiriva Respimat) 2 puff IH DAILY [facility] Last Admin: 06/18/18 10:24 Dose: Not Given - Objective Vital Signs: Vital Signs Temperature 98.4 F 06/18/18 10:20 Pulse Rate 91 H 06/18/18 10:20 Respiratory Rate 18 06/18/18 10:20 Blood Pressure 130/71 06/18/18 10:20 O2 Sat by Pulse Oximetry (%) 97 06/18/18 10:20 Constitutional: Yes: Well Nourished, Calm Eyes: Yes: WNL HENT: Yes: WNL Neck: Yes: WNL Cardiovascular: Yes: Regular Rate and Rhythm, S1, S2 Respiratory: Yes: CTA Bilaterally Gastrointestinal: Yes: Normal Bowel Sounds, Soft Extremities: Yes: WNL Edema: No Labs: Problem List - Problems (1) CAD (coronary artery disease) Code(s): I25.10 - ATHSCL HEART DISEASE OF [place] CORONARY ARTERY W/O ANG PCTRS (2) History of breast cancer in adulthood Code(s): Z85.3 - PERSONAL HISTORY OF MALIGNANT NEOPLASM OF BREAST (3) Smoker Code(s): F17.200 - NICOTINE DEPENDENCE, UNSPECIFIED, UNCOMPLICATED (4) Cavitary lung disease Code(s): J98.4 - OTHER DISORDERS OF LUNG Assessment/Plan A/P Left Upper Lobe Cavitary Lesion r/o Pneumonia r/o Radiation Pneumonitis HTN Hyperlipidemia Smoker R/O Lung Abscess - continue antibiotics - f/u path,cultures - O2 as needed - Incentive Spirometry DR TOBIAS
--- NOTE | 2018-06-18 15:30 | PN ---
Progress Note, Physician History of Present Illness: OOB IN CHAIR REPORTS LESS COUGH TODAY NO C/O CHEST PAIN/ DYSPNEA [employer] SMEAR NEGATIVE - Current Medication List Current Medications: Active Medications Acetaminophen (Tylenol -) 650 mg PO Q6H PRN PRN Reason: FEVER Albuterol/Ipratropium (Duoneb -) 1 amp NEB Q4H PRN PRN Reason: SHORTNESS OF BREATH Atorvastatin Calcium (Lipitor -) 80 mg PO HS [facility] Last Admin: 06/17/18 21:47 Dose: 80 mg Benzocaine/Menthol (Cepacol Lozenge -) 1 each MM Q2H PRN PRN Reason: SORE THROAT Last Admin: 06/16/18 23:01 Dose: 1 each Clopidogrel Bisulfate (Plavix -) 75 mg PO DAILY [facility] Last Admin: 06/18/18 10:22 Dose: 75 mg Fentanyl (Sublimaze Injection -) 25 mcg IVPUSH [id number] PRN PRN Reason: PAIN-PACU ORDER X 4 DOSES ONLY Guaifenesin (Diabetic Tussin Dm -) 10 ml PO Q6H PRN PRN Reason: COUGH Heparin Sodium (Porcine) (Heparin -) 5,000 unit SQ TID [facility] Last Admin: 06/18/18 14:21 Dose: Not Given Levofloxacin (Levaquin 750 Mg Premixed Ivpb -) 750 mg in 150 mls @ 100 mls/hr IVPB DAILY [facility]; Protocol Last Admin: 06/18/18 10:23 Dose: 100 mls/hr Vancomycin HCl (Vancomycin (Pre-Docked)) 1,000 mg in 250 mls @ 166.667 mls/hr IVPB Q12H [facility]; Protocol Last Admin: 06/18/18 05:31 Dose: 166.667 mls/hr Insulin Aspart (Novolog Vial Sliding Scale -) 1 vial SQ ACHS [facility]; Protocol Last Admin: 06/18/18 11:26 Dose: Not Given Insulin Detemir (Levemir Vial) 8 units SQ HS [facility] Last Admin: 06/17/18 21:49 Dose: 8 units Lactobacillus Acidophilus (Bacid -) 1 tab PO DAILY [facility] Last Admin: 06/18/18 10:22 Dose: 1 tab Loratadine (Claritin -) 10 mg PO DAILY [facility] Last Admin: 06/18/18 10:22 Dose: Not Given Losartan Potassium (Cozaar -) 100 mg PO DAILY [facility] Last Admin: 06/18/18 10:22 Dose: 100 mg Magnesium Hydroxide (Milk Of Magnesia -) 30 ml PO DAILY PRN PRN Reason: CONSTIPATION Metformin HCl (Glucophage -) 850 mg PO BID@0700,1630 [facility] Last Admin: 06/18/18 06:16 Dose: 850 mg Metoprolol Succinate (Toprol Xl -) 25 mg PO DAILY [facility] Last Admin: 06/18/18 10:23 Dose: 25 mg Nicotine (Nicoderm Patch -) 7 mg TD DAILY [facility] Last Admin: 06/18/18 10:22 Dose: 7 mg Nifedipine (Procardia Xl -) 60 mg PO DAILY [facility] Last Admin: 06/18/18 10:24 Dose: 60 mg Ondansetron HCl (Zofran Injection) 4 mg IVPUSH Q6H PRN PRN Reason: NAUSEA AND/OR VOMITING Phenol/Menthol (Chloraseptic -) 2 spray MM QID [facility] Last Admin: 06/18/18 14:20 Dose: Not Given Polyethylene Glycol (Miralax (For Daily Use) -) 17 gm PO DAILY [facility] Last Admin: 06/18/18 10:23 Dose: Not Given Ranitidine HCl (Zantac -) 150 mg PO BID [facility] Last Admin: 06/18/18 10:22 Dose: 150 mg Sitagliptin Phosphate (Januvia -) 100 mg PO DAILY@0700 [facility] Last Admin: 06/18/18 06:09 Dose: 100 mg Tiotropium [place] (Spiriva Respimat) 2 puff IH DAILY [facility] Last Admin: 06/18/18 10:24 Dose: Not Given - Objective Vital Signs: Vital Signs Temperature 98.4 F 06/18/18 10:20 Pulse Rate 91 H 06/18/18 10:20 Respiratory Rate 18 06/18/18 10:20 Blood Pressure 130/71 06/18/18 10:20 O2 Sat by Pulse Oximetry (%) 97 06/18/18 10:20 Constitutional: Yes: No Distress Eyes: Yes: Conjunctiva Clear Cardiovascular: Yes: Regular Rate and Rhythm, S1, S2 Respiratory: Yes: CTA Bilaterally Gastrointestinal: Yes: Normal Bowel Sounds, Soft. No: Tenderness Edema: No Labs: CBC, BMP 06/17/18 06:45 06/17/18 06:45 INR, PTT INR 1.25 (0.83-1.09) H 06/15/18 06:30 Assessment/Plan CAVITARY JODY LUNG MASS-LIKE LESION ? CAVITARY PNEUMONIA/ LUNG ABSCESS ? CAVITARY NEOPLASM ? AFB DISEASE AWAIT C/S, CYTOLOGY OBTAIN [employer]/ AFB PRECAUTIONS
--- NOTE | 2018-06-18 15:46 | PATH ---
Cytology Non-Gynecological Report Patient Name: DEVIN SEE Med. Rec. #: [id number] /Age/Gender: 1960 (Age: 57) / F Account: [id number] Location: [facility] MED/SURG Taken: 06/17/2018 Received: 06/17/2018 Reported: 06/18/2018 Physicians: PHYSICIAN EMERGENCY DEPT Specimen(s) Received LEFT UPPER LOBE BRONCHIAL WASHINGS Clinical History Lung nodule Final Diagnosis BRONCHIAL WASHING, LEFT UPPER LOBE, FOR CYTOLOGY: SATISFACTORY FOR EVALUATION. NO MALIGNANT CELLS IDENTIFIED. FEW ALVEOLAR MACROPHAGES IN HEMORRHAGIC BACKGROUND WITH SCATTERED NEUTROPHILS, LYMPHOCYTES, AND RARE DEGENERATED EPITHELIAL CELLS PRESENT. Comment: See concurrent materials ([id number]). Suggest clinical, radiologic, and microbiology studies correlation. Electronically Signed Millie Zamudio M.D. Gross Description Approximately 35 cc of bloody fluid received fresh. One cytofunnel prepared and Pap stained. One cellblock prepared.
--- NOTE | 2018-06-18 16:03 | PATH ---
Surgical Pathology Report Patient Name: DEVIN SEE Med. Rec. #: [id number] /Age/Gender: 1960 (Age: 57) / F Account: [id number] Location: [facility] MED/SURG Taken: 06/16/2018 Received: 06/17/2018 Reported: 06/18/2018 Physicians: Ary Noe M.D. Specimen(s) Received LEFT UPPER LOBE Clinical History Left upper lobe mass Final Diagnosis LUNG, LEFT, UPPER LOBE, BIOPSY: MINUTE FRAGMENT OF BENIGN LUNG PARENCHYMA WITH RED BLOOD CELLS AND INTRAALVEOLAR MACROPHAGES. NO MALIGNANCY IDENTIFIED. Comment: Suggest clinical, radiological, and microbiology studies correlation. See concurrent cytology [id number]. Electronically Signed Millie Zamudio M.D. Gross Description Received in formalin, labeled "left upper lobe biopsy" is a more, irregular portion of soft tissue measuring less than 0.1 cm. in greatest dimension. The specimen is submitted in toto in one cassette. /06/17/2018 [facility]06/17/2018
[2018-06-18] MEDS: ATORVASTATIN CA 80 MG TABLET (FP) PO SCH (23:00)
[2018-06-18] MEDS: INSULIN (LEVEMIR) 100 UNITS/ML UNITS SQ SCH (23:01)
[2018-06-19] MEDS: HEPARIN NA (PORCINE) 5,000 UNITS/ML 1ML VIAL SQ SCH ×3 (05:53→21:33)
[2018-06-19] MEDS: VANCOMYCIN 1 GRAM (PRE-DOCKED) 1,000 MG/250 ML BAG IVPB SCH ×2 (05:53→18:10)
[2018-06-19] MEDS: sitaGLIPtin PHOSPHATE 100 MG TABLET (FP) PO SCH (06:21)
[2018-06-19] MEDS: INSULIN SLIDING SCALE (NOVOLOG) 1 VIAL SQ SCH ×4 (06:21→21:37)
[2018-06-19] MEDS: NICOTINE 7 MG/24 HOURS TOPICAL PATCH TD SCH (11:31)
[2018-06-19] MEDS: CLOPIDOGREL BISULFATE 75 MG TABLET (FP) PO SCH (11:31)
[2018-06-19] MEDS: LOSARTAN POTASSIUM 50 MG TABLET (FP) PO SCH (11:38)
[2018-06-19] MEDS: NIFEdipine E.R 60 MG TABLET (UD) PO SCH (11:39)
[2018-06-19] MEDS: RANITIDINE HCL 150 MG TABLET (FP) PO SCH ×2 (11:42→23:36)
[2018-06-19] MEDS: LORATADINE 10 MG TABLET PO SCH (11:42)
[2018-06-19] MEDS: PHENOL 177 ML SPRAY BOTTLE MM SCH ×4 (11:43→23:32)
[2018-06-19] MEDS: POLYETHYLENE GLYCOL 3350 119 GM BTL PO SCH (11:43)
[2018-06-19] MEDS: BENZOCAINE/MENTH/CETYLPYRD CL 1 EACH LOZENGE MM PRN (11:43)
[2018-06-19] MEDS: LACTOBACILLUS ACIDOPHILUS 1 TABLET PO SCH (11:43)
[2018-06-19] MEDS: metoPROLOL SUCCINATE 25 MG TAB.SR.24H (FP) PO SCH (11:44)
[2018-06-19] MEDS: TIOTROPIUM BROMIDE 2.5 MCG (SPIRIVA) RESPIMAT INHALER IH SCH (11:44)
--- NOTE | 2018-06-19 13:08 | PN ---
Progress Note, Physician History of Present Illness: FEELS BETTER - Current Medication List Current Medications: Active Medications Acetaminophen (Tylenol -) 650 mg PO Q6H PRN PRN Reason: FEVER Last Admin: 06/19/18 11:42 Dose: 650 mg Albuterol/Ipratropium (Duoneb -) 1 amp NEB Q4H PRN PRN Reason: SHORTNESS OF BREATH Atorvastatin Calcium (Lipitor -) 80 mg PO HS [facility] Last Admin: 06/18/18 23:00 Dose: 80 mg Benzocaine/Menthol (Cepacol Lozenge -) 1 each MM Q2H PRN PRN Reason: SORE THROAT Last Admin: 06/19/18 11:43 Dose: 1 each Clopidogrel Bisulfate (Plavix -) 75 mg PO DAILY [facility] Last Admin: 06/19/18 11:31 Dose: 75 mg Fentanyl (Sublimaze Injection -) 25 mcg IVPUSH [id number] PRN PRN Reason: PAIN-PACU ORDER X 4 DOSES ONLY Guaifenesin (Diabetic Tussin Dm -) 10 ml PO Q6H PRN PRN Reason: COUGH Heparin Sodium (Porcine) (Heparin -) 5,000 unit SQ TID [facility] Last Admin: 06/19/18 05:53 Dose: 5,000 unit Levofloxacin (Levaquin 750 Mg Premixed Ivpb -) 750 mg in 150 mls @ 100 mls/hr IVPB DAILY [facility]; Protocol Last Admin: 06/19/18 11:38 Dose: 100 mls/hr Vancomycin HCl (Vancomycin (Pre-Docked)) 1,000 mg in 250 mls @ 166.667 mls/hr IVPB Q12H [facility]; Protocol Last Admin: 06/19/18 05:53 Dose: 166.667 mls/hr Insulin Aspart (Novolog Vial Sliding Scale -) 1 vial SQ ACHS [facility]; Protocol Last Admin: 06/19/18 06:21 Dose: Not Given Insulin Detemir (Levemir Vial) 8 units SQ [facility] Last Admin: 06/18/18 23:01 Dose: 8 units Lactobacillus Acidophilus (Bacid -) 1 tab PO DAILY [facility] Last Admin: 06/19/18 11:43 Dose: 1 tab Loratadine (Claritin -) 10 mg PO DAILY [facility] Last Admin: 06/19/18 11:42 Dose: 10 mg Losartan Potassium (Cozaar -) 100 mg PO DAILY [facility] Last Admin: 06/19/18 11:38 Dose: 100 mg Magnesium Hydroxide (Milk Of Magnesia -) 30 ml PO DAILY PRN PRN Reason: CONSTIPATION Metformin HCl (Glucophage -) 850 mg PO BID@0700,1630 [facility] Last Admin: 06/19/18 06:21 Dose: 850 mg Metoprolol Succinate (Toprol Xl -) 25 mg PO DAILY [facility] Last Admin: 06/19/18 11:44 Dose: 25 mg Nicotine (Nicoderm Patch -) 7 mg TD DAILY [facility] Last Admin: 06/19/18 11:31 Dose: 7 mg Nifedipine (Procardia Xl -) 60 mg PO DAILY [facility] Last Admin: 06/19/18 11:39 Dose: 60 mg Ondansetron HCl (Zofran Injection) 4 mg IVPUSH Q6H PRN PRN Reason: NAUSEA AND/OR VOMITING Phenol/Menthol (Chloraseptic -) 2 spray MM QID [facility] Last Admin: 06/19/18 11:43 Dose: 2 sprays Polyethylene Glycol (Miralax (For Daily Use) -) 17 gm PO DAILY [facility] Last Admin: 06/19/18 11:43 Dose: 17 gm Ranitidine HCl (Zantac -) 150 mg PO BID [facility] Last Admin: 06/19/18 11:42 Dose: 150 mg Sitagliptin Phosphate (Januvia -) 100 mg PO DAILY@0700 [facility] Last Admin: 06/19/18 06:21 Dose: 100 mg Tiotropium [place] (Spiriva Respimat) 2 puff IH DAILY [facility] Last Admin: 06/19/18 11:44 Dose: 2 puff - Objective Vital Signs: Vital Signs Temperature 97.9 F 06/19/18 06:45 Pulse Rate 90 06/19/18 06:45 Respiratory Rate 20 06/19/18 06:45 Blood Pressure 123/76 06/19/18 06:45 O2 Sat by Pulse Oximetry (%) 96 06/18/18 21:00 Cardiovascular: Yes: S1, S2 Respiratory: Yes: Diminished, Rhonchi Gastrointestinal: Yes: Normal Bowel Sounds, Soft Labs: CBC, BMP 06/17/18 06:45 06/17/18 06:45 INR, PTT INR 1.25 (0.83-1.09) H 06/15/18 06:30 Problem List - Problems (1) CAD (coronary artery disease) Assessment/Plan: SAME MEDS NO CP Code(s): I25.10 - ATHSCL HEART DISEASE OF [place] CORONARY ARTERY W/O ANG PCTRS (2) Cavitary lung disease Assessment/Plan: IV ABX W/U A S PER ID AND PULM AWAIT QUANTEFERON Code(s): J98.4 - OTHER DISORDERS OF LUNG
--- NOTE | 2018-06-19 15:45 | PN ---
Progress Note, Physician History of Present Illness: pulmonary alert,comfortable,-sob,-cough,-hemoptysis. bronch cultures negative ,path no malignancy - Current Medication List Current Medications: Active Medications Acetaminophen (Tylenol -) 650 mg PO Q6H PRN PRN Reason: FEVER Last Admin: 06/19/18 11:42 Dose: 650 mg Albuterol/Ipratropium (Duoneb -) 1 amp NEB Q4H PRN PRN Reason: SHORTNESS OF BREATH Atorvastatin Calcium (Lipitor -) 80 mg PO HS [facility] Last Admin: 06/18/18 23:00 Dose: 80 mg Benzocaine/Menthol (Cepacol Lozenge -) 1 each MM Q2H PRN PRN Reason: SORE THROAT Last Admin: 06/19/18 11:43 Dose: 1 each Clopidogrel Bisulfate (Plavix -) 75 mg PO DAILY [facility] Last Admin: 06/19/18 11:31 Dose: 75 mg Fentanyl (Sublimaze Injection -) 25 mcg IVPUSH [id number] PRN PRN Reason: PAIN-PACU ORDER X 4 DOSES ONLY Guaifenesin (Diabetic Tussin Dm -) 10 ml PO Q6H PRN PRN Reason: COUGH Heparin Sodium (Porcine) (Heparin -) 5,000 unit SQ TID [facility] Last Admin: 06/19/18 05:53 Dose: 5,000 unit Levofloxacin (Levaquin 750 Mg Premixed Ivpb -) 750 mg in 150 mls @ 100 mls/hr IVPB DAILY [facility]; Protocol Last Admin: 06/19/18 11:38 Dose: 100 mls/hr Vancomycin HCl (Vancomycin (Pre-Docked)) 1,000 mg in 250 mls @ 166.667 mls/hr IVPB Q12H [facility]; Protocol Last Admin: 06/19/18 05:53 Dose: 166.667 mls/hr Insulin Aspart (Novolog Vial Sliding Scale -) 1 vial SQ ACHS [facility]; Protocol Last Admin: 06/19/18 06:21 Dose: Not Given Insulin Detemir (Levemir Vial) 8 units SQ HS [facility] Last Admin: 06/18/18 23:01 Dose: 8 units Lactobacillus Acidophilus (Bacid -) 1 tab PO DAILY [facility] Last Admin: 06/19/18 11:43 Dose: 1 tab Loratadine (Claritin -) 10 mg PO DAILY [facility] Last Admin: 06/19/18 11:42 Dose: 10 mg Losartan Potassium (Cozaar -) 100 mg PO DAILY [facility] Last Admin: 06/19/18 11:38 Dose: 100 mg Magnesium Hydroxide (Milk Of Magnesia -) 30 ml PO DAILY PRN PRN Reason: CONSTIPATION Metformin HCl (Glucophage -) 850 mg PO BID@0700,1630 [facility] Last Admin: 06/19/18 06:21 Dose: 850 mg Metoprolol Succinate (Toprol Xl -) 25 mg PO DAILY [facility] Last Admin: 06/19/18 11:44 Dose: 25 mg Nicotine (Nicoderm Patch -) 7 mg TD DAILY [facility] Last Admin: 06/19/18 11:31 Dose: 7 mg Nifedipine (Procardia Xl -) 60 mg PO DAILY [facility] Last Admin: 06/19/18 11:39 Dose: 60 mg Ondansetron HCl (Zofran Injection) 4 mg IVPUSH Q6H PRN PRN Reason: NAUSEA AND/OR VOMITING Phenol/Menthol (Chloraseptic -) 2 spray MM QID [facility] Last Admin: 06/19/18 11:43 Dose: 2 sprays Polyethylene Glycol (Miralax (For Daily Use) -) 17 gm PO DAILY [facility] Last Admin: 06/19/18 11:43 Dose: 17 gm Ranitidine HCl (Zantac -) 150 mg PO BID [facility] Last Admin: 06/19/18 11:42 Dose: 150 mg Sitagliptin Phosphate (Januvia -) 100 mg PO DAILY@0700 [facility] Last Admin: 06/19/18 06:21 Dose: 100 mg Tiotropium [place] (Spiriva Respimat) 2 puff IH DAILY [facility] Last Admin: 06/19/18 11:44 Dose: 2 puff - Objective Vital Signs: Vital Signs Temperature 97.9 F 06/19/18 06:45 Pulse Rate 90 06/19/18 06:45 Respiratory Rate 20 06/19/18 06:45 Blood Pressure 123/76 06/19/18 06:45 O2 Sat by Pulse Oximetry (%) 96 06/18/18 21:00 Constitutional: Yes: Well Nourished, Calm Eyes: Yes: WNL HENT: Yes: WNL Neck: Yes: WNL Cardiovascular: Yes: Regular Rate and Rhythm, S1, S2 Respiratory: Yes: Diminished Gastrointestinal: Yes: Normal Bowel Sounds, Soft Extremities: Yes: WNL Edema: No Labs: CBC, BMP 06/17/18 06:45 06/17/18 06:45 INR, PTT INR 1.25 (0.83-1.09) H 06/15/18 06:30 Problem List - Problems (1) CAD (coronary artery disease) Code(s): I25.10 - ATHSCL HEART DISEASE OF [place] CORONARY ARTERY W/O ANG PCTRS (2) History of breast cancer in adulthood Code(s): Z85.3 - PERSONAL HISTORY OF MALIGNANT NEOPLASM OF BREAST (3) Smoker Code(s): F17.200 - NICOTINE DEPENDENCE, UNSPECIFIED, UNCOMPLICATED (4) Cavitary lung disease Code(s): J98.4 - OTHER DISORDERS OF LUNG Assessment/Plan A/P Left Upper Lobe Cavitary Lesion r/o Pneumonia r/o Radiation Pneumonitis HTN Hyperlipidemia Smoker R/O Lung Abscess - antibiotics as per id - O2 as needed - Incentive Spirometry DR TOBIAS
[2018-06-19] MEDS ORDERED: PT OWN MED DRAWER 7, Y5N ONE (18:20)
[2018-06-19] MEDS: ATORVASTATIN CA 80 MG TABLET (FP) PO SCH (21:35)
[2018-06-19] MEDS: INSULIN (LEVEMIR) 100 UNITS/ML UNITS SQ SCH (21:35)
[2018-06-19] MEDS ORDERED: MELATONIN 5 MG TABLETS PO PRN (21:53)
[2018-06-20] MEDS: VANCOMYCIN 1 GRAM (PRE-DOCKED) 1,000 MG/250 ML BAG IVPB SCH ×2 (06:21→17:17)
[2018-06-20] MEDS: HEPARIN NA (PORCINE) 5,000 UNITS/ML 1ML VIAL SQ SCH ×3 (06:21→22:50)
[2018-06-20] MEDS: sitaGLIPtin PHOSPHATE 100 MG TABLET (FP) PO SCH (06:22)
[2018-06-20] MEDS: INSULIN SLIDING SCALE (NOVOLOG) 1 VIAL SQ SCH ×4 (06:23→22:50)
[2018-06-20] MEDS ORDERED: PT OWN MED DRAWER 7, Y5N ONE ×3 (07:02→21:08)
[2018-06-20] MEDS: LORATADINE 10 MG TABLET PO SCH (09:29)
[2018-06-20] MEDS: LOSARTAN POTASSIUM 50 MG TABLET (FP) PO SCH (09:29)
[2018-06-20] MEDS: LACTOBACILLUS ACIDOPHILUS 1 TABLET PO SCH (09:29)
[2018-06-20] MEDS: CLOPIDOGREL BISULFATE 75 MG TABLET (FP) PO SCH (09:33)
[2018-06-20] MEDS: NIFEdipine E.R 60 MG TABLET (UD) PO SCH (09:33)
[2018-06-20] MEDS: TIOTROPIUM BROMIDE 2.5 MCG (SPIRIVA) RESPIMAT INHALER IH SCH (09:33)
[2018-06-20] MEDS: POLYETHYLENE GLYCOL 3350 119 GM BTL PO SCH (09:33)
[2018-06-20] MEDS: NICOTINE 7 MG/24 HOURS TOPICAL PATCH TD SCH (09:33)
[2018-06-20] MEDS: RANITIDINE HCL 150 MG TABLET (FP) PO SCH ×2 (09:34→22:44)
[2018-06-20] MEDS: metoPROLOL SUCCINATE 25 MG TAB.SR.24H (FP) PO SCH (09:34)
--- NOTE | 2018-06-20 12:36 | PN ---
Progress Note, Physician - Current Medication List Current Medications: Active Medications Acetaminophen (Tylenol -) 650 mg PO Q6H PRN PRN Reason: FEVER Last Admin: 06/19/18 11:42 Dose: 650 mg Albuterol/Ipratropium (Duoneb -) 1 amp NEB Q4H PRN PRN Reason: SHORTNESS OF BREATH Atorvastatin Calcium (Lipitor -) 80 mg PO HS [facility] Last Admin: 06/19/18 21:35 Dose: 80 mg Benzocaine/Menthol (Cepacol Lozenge -) 1 each MM Q2H PRN PRN Reason: SORE THROAT Last Admin: 06/19/18 11:43 Dose: 1 each Clopidogrel Bisulfate (Plavix -) 75 mg PO DAILY [facility] Last Admin: 06/20/18 09:33 Dose: 75 mg Fentanyl (Sublimaze Injection -) 25 mcg IVPUSH [id number] PRN PRN Reason: PAIN-PACU ORDER X 4 DOSES ONLY Guaifenesin (Diabetic Tussin Dm -) 10 ml PO Q6H PRN PRN Reason: COUGH Heparin Sodium (Porcine) (Heparin -) 5,000 unit SQ TID [facility] Last Admin: 06/20/18 06:21 Dose: 5,000 unit Levofloxacin (Levaquin 750 Mg Premixed Ivpb -) 750 mg in 150 mls @ 100 mls/hr IVPB DAILY [facility]; Protocol Last Admin: 06/20/18 09:32 Dose: 100 mls/hr Vancomycin HCl (Vancomycin (Pre-Docked)) 1,000 mg in 250 mls @ 166.667 mls/hr IVPB Q12H [facility]; Protocol Last Admin: 06/20/18 06:21 Dose: 166.667 mls/hr Insulin Aspart (Novolog Vial Sliding Scale -) 1 vial SQ ACHS [facility]; Protocol Last Admin: 06/20/18 06:23 Dose: Not Given Insulin Detemir (Levemir Vial) 8 units SQ HS [facility] Last Admin: 06/19/18 21:35 Dose: 8 units Lactobacillus Acidophilus (Bacid -) 1 tab PO DAILY [facility] Last Admin: 06/20/18 09:29 Dose: 1 tab Loratadine (Claritin -) 10 mg PO DAILY [facility] Last Admin: 06/20/18 09:29 Dose: 10 mg Losartan Potassium (Cozaar -) 100 mg PO DAILY [facility] Last Admin: 06/20/18 09:29 Dose: 100 mg Magnesium Hydroxide (Milk Of Magnesia -) 30 ml PO DAILY PRN PRN Reason: CONSTIPATION Melatonin (Melatonin) 5 mg PO HS PRN PRN Reason: INSOMNIA Last Admin: 06/19/18 23:35 Dose: 5 mg Metformin HCl (Glucophage -) 850 mg PO BID@0700,1630 [facility] Last Admin: 06/20/18 07:15 Dose: 850 mg Metoprolol Succinate (Toprol Xl -) 25 mg PO DAILY [facility] Last Admin: 06/20/18 09:34 Dose: 25 mg Nicotine (Nicoderm Patch -) 7 mg TD DAILY [facility] Last Admin: 06/20/18 09:33 Dose: 7 mg Nifedipine (Procardia Xl -) 60 mg PO DAILY [facility] Last Admin: 06/20/18 09:33 Dose: 60 mg Ondansetron HCl (Zofran Injection) 4 mg IVPUSH Q6H PRN PRN Reason: NAUSEA AND/OR VOMITING Phenol/Menthol (Chloraseptic -) 2 spray MM QID [facility] Last Admin: 06/19/18 23:32 Dose: Not Given Polyethylene Glycol (Miralax (For Daily Use) -) 17 gm PO DAILY [facility] Last Admin: 06/20/18 09:33 Dose: Not Given Ranitidine HCl (Zantac -) 150 mg PO BID [facility] Last Admin: 06/20/18 09:34 Dose: 150 mg Sitagliptin Phosphate (Januvia -) 100 mg PO DAILY@0700 [facility] Last Admin: 06/20/18 06:22 Dose: 100 mg Tiotropium [place] (Spiriva Respimat) 2 puff IH DAILY [facility] Last Admin: 06/20/18 09:33 Dose: 2 puff - Objective Vital Signs: Vital Signs Temperature 99.0 F 06/20/18 06:31 Pulse Rate 91 H 06/19/18 22:00 Respiratory Rate 20 06/20/18 06:31 Blood Pressure 137/75 06/20/18 06:31 O2 Sat by Pulse Oximetry (%) 96 06/19/18 20:35 Cardiovascular: Yes: S1, S2 Respiratory: Yes: Rhonchi. No: On Nasal O2 Gastrointestinal: Yes: Normal Bowel Sounds, Soft Labs: CBC, BMP 06/17/18 06:45 06/17/18 06:45 INR, PTT INR 1.25 (0.83-1.09) H 06/15/18 06:30 Problem List - Problems (1) Cavitary lung disease Assessment/Plan: r/o pneumonia vs abscess vs pneumonitis IV ABX W/U A S PER ID AND PULM AWAIT QUANTEFERON Code(s): J98.4 - OTHER DISORDERS OF LUNG (2) CAD (coronary artery disease) Assessment/Plan: SAME MEDS NO CP Code(s): I25.10 - ATHSCL HEART DISEASE OF [place] CORONARY ARTERY W/O ANG PCTRS
--- NOTE | 2018-06-20 15:41 | PN ---
Progress Note, Physician History of Present Illness: PULMONARY COMFORTABLE,-RESP DISTRESS,-COUGH,-HEMOPTYSIS - Current Medication List Current Medications: Active Medications Acetaminophen (Tylenol -) 650 mg PO Q6H PRN PRN Reason: FEVER Last Admin: 06/19/18 11:42 Dose: 650 mg Albuterol/Ipratropium (Duoneb -) 1 amp NEB Q4H PRN PRN Reason: SHORTNESS OF BREATH Atorvastatin Calcium (Lipitor -) 80 mg PO HS [facility] Last Admin: 06/19/18 21:35 Dose: 80 mg Benzocaine/Menthol (Cepacol Lozenge -) 1 each MM Q2H PRN PRN Reason: SORE THROAT Last Admin: 06/19/18 11:43 Dose: 1 each Clopidogrel Bisulfate (Plavix -) 75 mg PO DAILY [facility] Last Admin: 06/20/18 09:33 Dose: 75 mg Fentanyl (Sublimaze Injection -) 25 mcg IVPUSH [id number] PRN PRN Reason: PAIN-PACU ORDER X 4 DOSES ONLY Guaifenesin (Diabetic Tussin Dm -) 10 ml PO Q6H PRN PRN Reason: COUGH Heparin Sodium (Porcine) (Heparin -) 5,000 unit SQ TID [facility] Last Admin: 06/20/18 06:21 Dose: 5,000 unit Levofloxacin (Levaquin 750 Mg Premixed Ivpb -) 750 mg in 150 mls @ 100 mls/hr IVPB DAILY [facility]; Protocol Last Admin: 06/20/18 09:32 Dose: 100 mls/hr Vancomycin HCl (Vancomycin (Pre-Docked)) 1,000 mg in 250 mls @ 166.667 mls/hr IVPB Q12H [facility]; Protocol Last Admin: 06/20/18 06:21 Dose: 166.667 mls/hr Insulin Aspart (Novolog Vial Sliding Scale -) 1 vial SQ ACHS [facility]; Protocol Last Admin: 06/20/18 06:23 Dose: Not Given Insulin Detemir (Levemir Vial) 8 units SQ HS [facility] Last Admin: 06/19/18 21:35 Dose: 8 units Lactobacillus Acidophilus (Bacid -) 1 tab PO DAILY [facility] Last Admin: 06/20/18 09:29 Dose: 1 tab Loratadine (Claritin -) 10 mg PO DAILY [facility] Last Admin: 06/20/18 09:29 Dose: 10 mg Losartan Potassium (Cozaar -) 100 mg PO DAILY [facility] Last Admin: 06/20/18 09:29 Dose: 100 mg Magnesium Hydroxide (Milk Of Magnesia -) 30 ml PO DAILY PRN PRN Reason: CONSTIPATION Melatonin (Melatonin) 5 mg PO HS PRN PRN Reason: INSOMNIA Last Admin: 06/19/18 23:35 Dose: 5 mg Metformin HCl (Glucophage -) 850 mg PO BID@0700,1630 [facility] Last Admin: 06/20/18 07:15 Dose: 850 mg Metoprolol Succinate (Toprol Xl -) 25 mg PO DAILY [facility] Last Admin: 06/20/18 09:34 Dose: 25 mg Nicotine (Nicoderm Patch -) 7 mg TD DAILY [facility] Last Admin: 06/20/18 09:33 Dose: 7 mg Nifedipine (Procardia Xl -) 60 mg PO DAILY [facility] Last Admin: 06/20/18 09:33 Dose: 60 mg Ondansetron HCl (Zofran Injection) 4 mg IVPUSH Q6H PRN PRN Reason: NAUSEA AND/OR VOMITING Phenol/Menthol (Chloraseptic -) 2 spray MM QID [facility] Last Admin: 06/19/18 23:32 Dose: Not Given Polyethylene Glycol (Miralax (For Daily Use) -) 17 gm PO DAILY [facility] Last Admin: 06/20/18 09:33 Dose: Not Given Ranitidine HCl (Zantac -) 150 mg PO BID [facility] Last Admin: 06/20/18 09:34 Dose: 150 mg Sitagliptin Phosphate (Januvia -) 100 mg PO DAILY@0700 [facility] Last Admin: 06/20/18 06:22 Dose: 100 mg Tiotropium [place] (Spiriva Respimat) 2 puff IH DAILY [facility] Last Admin: 06/20/18 09:33 Dose: 2 puff - Objective Vital Signs: Vital Signs Temperature 99.3 F 06/20/18 15:36 Pulse Rate 86 06/20/18 15:36 Respiratory Rate 20 06/20/18 15:36 Blood Pressure 89/45 L 06/20/18 15:36 O2 Sat by Pulse Oximetry (%) 96 06/19/18 20:35 Constitutional: Yes: Well Nourished, Calm Eyes: Yes: WNL HENT: Yes: WNL Neck: Yes: WNL Cardiovascular: Yes: Regular Rate and Rhythm, S1, S2 Respiratory: Yes: CTA Bilaterally Gastrointestinal: Yes: Normal Bowel Sounds, Soft Extremities: Yes: WNL Edema: No Labs: CBC, BMP Problem List - Problems (1) CAD (coronary artery disease) Code(s): I25.10 - ATHSCL HEART DISEASE OF [place] CORONARY ARTERY W/O ANG PCTRS (2) History of breast cancer in adulthood Code(s): Z85.3 - PERSONAL HISTORY OF MALIGNANT NEOPLASM OF BREAST (3) Smoker Code(s): F17.200 - NICOTINE DEPENDENCE, UNSPECIFIED, UNCOMPLICATED (4) Cavitary lung disease Code(s): J98.4 - OTHER DISORDERS OF LUNG Assessment/Plan A/P Left Upper Lobe Cavitary Lesion bronch cultures negative r/o Pneumonia r/o Radiation Pneumonitis HTN Hyperlipidemia Smoker R/O Lung Abscess - antibiotics as per id - O2 as needed - Incentive Spirometry DR TOBIAS
[2018-06-20] MEDS: PHENOL 177 ML SPRAY BOTTLE MM SCH ×3 (16:14→22:26)
[2018-06-20] MEDS ORDERED: SODIUM CHLORIDE 1,000 ML IV ONE (16:30)
[2018-06-20] MEDS ORDERED: LOPERAMIDE HCL 2 MG CAPSULE PO ONE (21:41)
[2018-06-20] MEDS: ATORVASTATIN CA 80 MG TABLET (FP) PO SCH (22:44)
[2018-06-20] MEDS: INSULIN (LEVEMIR) 100 UNITS/ML UNITS SQ SCH (22:49)
[2018-06-21] MEDS: HEPARIN NA (PORCINE) 5,000 UNITS/ML 1ML VIAL SQ SCH (05:37)
[2018-06-21] MEDS: VANCOMYCIN 1 GRAM (PRE-DOCKED) 1,000 MG/250 ML BAG IVPB SCH (05:37)
[2018-06-21] MEDS: sitaGLIPtin PHOSPHATE 100 MG TABLET (FP) PO SCH (06:19)
[2018-06-21] MEDS: INSULIN SLIDING SCALE (NOVOLOG) 1 VIAL SQ SCH ×2 (06:20→11:33)
[2018-06-21] MEDS ORDERED: INSULIN (NOVOLOG) ASPART 100 UNITS/ML 10ML VIAL ONE (06:51)
[2018-06-21 07:26] LABS: HEMATOCRIT 34.4 % (32.4-45.2); HEMOGLOBIN 11.3 GM/dL (10.7-15.3); MCH 27.1 pg (25.7-33.7); MCHC 32.9 g/dl (32.0-36.0); MEAN CELL VOLUME 82.5 fl (80-96); PLATELET COUNT 478 K/MM3 (134-434); RBC 4.17 M/mm3 (3.60-5.2); RDW 15.2 % (11.6-15.6); WHITE BLOOD COUNT 13.1 K/mm3 (4.0-10.0)
[2018-06-21 07:57] LABS: ANION GAP 8 MMOL/L (8-16); BLOOD UREA NITROGEN 9 mg/dL (7-18); CALCIUM 8.5 mg/dL (8.5-10.1); CHLORIDE 106 mmol/L (98-107); CO2 26 mmol/L (21-32); CREATININE 0.8 mg/dL (0.55-1.3); GLUCOSE,RANDOM 128 mg/dL (74-106); MAGNESIUM 1.5 mg/dL (1.8-2.4); POTASSIUM 3.5 mmol/L (3.5-5.1); SODIUM 140 mmol/L (136-145)
--- NOTE | 2018-06-21 08:03 | PN ---
Progress Note, Physician Chief Complaint: AWAKE ALERT DIARRHEA CONTROLLED CDIFF NEGATIVE DENIES CP OR SOB - Current Medication List Current Medications: Active Medications Acetaminophen (Tylenol -) 650 mg PO Q6H PRN PRN Reason: FEVER Last Admin: 06/19/18 11:42 Dose: 650 mg Albuterol/Ipratropium (Duoneb -) 1 amp NEB Q4H PRN PRN Reason: SHORTNESS OF BREATH Atorvastatin Calcium (Lipitor -) 80 mg PO HS [facility] Last Admin: 06/20/18 22:44 Dose: 80 mg Benzocaine/Menthol (Cepacol Lozenge -) 1 each MM Q2H PRN PRN Reason: SORE THROAT Last Admin: 06/19/18 11:43 Dose: 1 each Clopidogrel Bisulfate (Plavix -) 75 mg PO DAILY [facility] Last Admin: 06/20/18 09:33 Dose: 75 mg Fentanyl (Sublimaze Injection -) 25 mcg IVPUSH [id number] PRN PRN Reason: PAIN-PACU ORDER X 4 DOSES ONLY Guaifenesin (Diabetic Tussin Dm -) 10 ml PO Q6H PRN PRN Reason: COUGH Heparin Sodium (Porcine) (Heparin -) 5,000 unit SQ TID [facility] Last Admin: 06/21/18 05:37 Dose: 5,000 unit Levofloxacin (Levaquin 750 Mg Premixed Ivpb -) 750 mg in 150 mls @ 100 mls/hr IVPB DAILY [facility]; Protocol Last Admin: 06/20/18 09:32 Dose: 100 mls/hr Vancomycin HCl (Vancomycin (Pre-Docked)) 1,000 mg in 250 mls @ 166.667 mls/hr IVPB Q12H [facility]; Protocol Last Admin: 06/21/18 05:37 Dose: Not Given Insulin Aspart (Novolog Vial Sliding Scale -) 1 vial SQ ACHS [facility]; Protocol Last Admin: 06/21/18 06:20 Dose: Not Given Insulin Detemir (Levemir Vial) 8 units SQ HS [facility] Last Admin: 06/20/18 22:49 Dose: 8 units Lactobacillus Acidophilus (Bacid -) 1 tab PO DAILY [facility] Last Admin: 06/20/18 09:29 Dose: 1 tab Loratadine (Claritin -) 10 mg PO DAILY [facility] Last Admin: 06/20/18 09:29 Dose: 10 mg Losartan Potassium (Cozaar -) 100 mg PO DAILY [facility] Last Admin: 06/20/18 09:29 Dose: 100 mg Magnesium Hydroxide (Milk Of Magnesia -) 30 ml PO DAILY PRN PRN Reason: CONSTIPATION Magnesium Sulfate (Magnesium Sulfate) 1 gm IVPB ONCE ONE Stop: 06/21/18 07:59 Melatonin (Melatonin) 5 mg PO HS PRN PRN Reason: INSOMNIA Last Admin: 06/19/18 23:35 Dose: 5 mg Metformin HCl (Glucophage -) 850 mg PO BID@0700,1630 [facility] Last Admin: 06/21/18 06:19 Dose: 850 mg Metoprolol Succinate (Toprol Xl -) 25 mg PO DAILY [facility] Last Admin: 06/20/18 09:34 Dose: 25 mg Nicotine (Nicoderm Patch -) 7 mg TD DAILY [facility] Last Admin: 06/20/18 09:33 Dose: 7 mg Nifedipine (Procardia Xl -) 60 mg PO DAILY [facility] Last Admin: 06/20/18 09:33 Dose: 60 mg Ondansetron HCl (Zofran Injection) 4 mg IVPUSH Q6H PRN PRN Reason: NAUSEA AND/OR VOMITING Phenol/Menthol (Chloraseptic -) 2 spray MM QID [facility] Last Admin: 06/20/18 22:26 Dose: Not Given Polyethylene Glycol (Miralax (For Daily Use) -) 17 gm PO DAILY [facility] Last Admin: 06/20/18 09:33 Dose: Not Given Ranitidine HCl (Zantac -) 150 mg PO BID [facility] Last Admin: 06/20/18 22:44 Dose: 150 mg Sitagliptin Phosphate (Januvia -) 100 mg PO DAILY@0700 [facility] Last Admin: 06/21/18 06:19 Dose: 100 mg Tiotropium [place] (Spiriva Respimat) 2 puff IH DAILY [facility] Last Admin: 06/20/18 09:33 Dose: 2 puff - Objective Vital Signs: Vital Signs Temperature 98.7 F 06/21/18 05:45 Pulse Rate 104 H 06/21/18 05:45 Respiratory Rate 20 06/21/18 05:45 Blood Pressure 120/66 06/21/18 05:45 O2 Sat by Pulse Oximetry (%) 96 06/19/18 20:35 Constitutional: Yes: No Distress Eyes: Yes: WNL HENT: Yes: WNL Neck: Yes: WNL Cardiovascular: Yes: Regular Rate and Rhythm Respiratory: Yes: Diminished Gastrointestinal: Yes: Soft Genitourinary: Yes: WNL Musculoskeletal: Yes: Muscle Weakness Extremities: Yes: WNL Edema: No Peripheral Pulses WNL: Yes Integumentary: Yes: WNL Wound/Incision: Yes: Clean/Dry Neurological: Yes: WNL ...Motor Strength: WNL Psychiatric: Yes: WNL Labs: CBC, BMP 06/21/18 06:30 06/21/18 06:45 INR, PTT INR 1.25 (0.83-1.09) H 06/15/18 06:30 Problem List - Problems (1) History of breast cancer in adulthood Code(s): Z85.3 - PERSONAL HISTORY OF MALIGNANT NEOPLASM OF BREAST (2) Hx pulmonary embolism Code(s): Z86.711 - PERSONAL HISTORY OF PULMONARY EMBOLISM (3) CAD (coronary artery disease) Code(s): I25.10 - ATHSCL HEART DISEASE OF [place] IN [place] CORONARY ARTERY W/O ANG PCTRS (4) Cough Code(s): R05 - COUGH (5) Diabetes Code(s): E11.9 - TYPE 2 DIABETES MELLITUS WITHOUT COMPLICATIONS Qualifiers: Diabetes mellitus type: type 2 (6) Night sweat Code(s): R61 - GENERALIZED HYPERHIDROSIS (7) Smoker Code(s): F17.200 - NICOTINE DEPENDENCE, UNSPECIFIED, UNCOMPLICATED (8) Chest pain Code(s): R07.9 - CHEST PAIN, UNSPECIFIED Qualifiers: Chest pain type: unspecified Qualified Code(s): R07.9 - Chest pain, unspecified Assessment/Plan TB QUANTITATIVE PENDING PULM EVAL APPRECIATED LUNG MASS VERSUS SCARRING VERSUS INFECTION? DM CONTROL IV ABX AWAIT CULTURES OOB TO CHAIR CAN HAVE CT CHEST IN 3 MONTHS OUTPATIENT.
[2018-06-21] MEDS ORDERED: MAGNESIUM SULF 50% (8.12 MEQ/2 ML-1 GM VIAL) IVPB ONE (08:30)
[2018-06-21] MEDS: NICOTINE 7 MG/24 HOURS TOPICAL PATCH TD SCH (09:47)
[2018-06-21] MEDS: LOSARTAN POTASSIUM 50 MG TABLET (FP) PO SCH (09:48)
[2018-06-21] MEDS: LACTOBACILLUS ACIDOPHILUS 1 TABLET PO SCH (09:48)
[2018-06-21] MEDS: RANITIDINE HCL 150 MG TABLET (FP) PO SCH (09:48)
[2018-06-21] MEDS: CLOPIDOGREL BISULFATE 75 MG TABLET (FP) PO SCH (09:48)
[2018-06-21] MEDS: PHENOL 177 ML SPRAY BOTTLE MM SCH (09:48)
[2018-06-21] MEDS: metoPROLOL SUCCINATE 25 MG TAB.SR.24H (FP) PO SCH (09:49)
[2018-06-21] MEDS: TIOTROPIUM BROMIDE 2.5 MCG (SPIRIVA) RESPIMAT INHALER IH SCH (09:49)
[2018-06-21] MEDS: NIFEdipine E.R 60 MG TABLET (UD) PO SCH (09:49)
[2018-06-21] MEDS: POLYETHYLENE GLYCOL 3350 119 GM BTL PO SCH (09:49)
[2018-06-21] MEDS: LORATADINE 10 MG TABLET PO SCH (09:49)
[2018-06-21 10:32] VITALS: BP 134/74; PULSE 96; TEMP 97.3
== END 2018-06-21 12:30 | disposition left against medical advice (07) | DRG 144 ==
LOC: JER 13:22 → JERBED 14:31 → J7W 17:04
PROVIDERS: ADMIT Family Medicine; ATTEND Family Medicine
PROC: 0BBG8ZX Excision of Left Upper Lung Lobe, Via Natural or Artificial Opening Endoscopic, Diagnostic (ICD-10-PCS; 2018-06-16)
PROC: 0BJ08ZZ Inspection of Tracheobronchial Tree, Via Natural or Artificial Opening Endoscopic (ICD-10-PCS; principal; 2018-06-16 14:00)
PROC: 0B988ZX Drainage of Left Upper Lobe Bronchus, Via Natural or Artificial Opening Endoscopic, Diagnostic (ICD-10-PCS; 2018-06-17)
DX: J98.4 Other disorders of lung (principal); E78.5 Hyperlipidemia, unspecified; F17.210 Nicotine dependence, cigarettes, uncomplicated; R61 Generalized hyperhidrosis; I25.10 Atherosclerotic heart disease of native coronary artery without angina pectoris; Z98.61 Coronary angioplasty status; R63.4 Abnormal weight loss; Z85.3 Personal history of malignant neoplasm of breast; R19.7 Diarrhea, unspecified; Z86.711 Personal history of pulmonary embolism; I10 Essential (primary) hypertension; E11.65 Type 2 diabetes mellitus with hyperglycemia
CPT/HCPCS: 36415; 71045-TC-FY; 71250-TC; 74176-TC; 80048; 80053; 80061; 81003; 81015; 82962; 83036; 83631; 83721; 83735; 84100; 84484; 85025; 85027; 85610; 86480; 87040; 87070; 87086; 87102; 87116; 87205; 87206; 87210; 87324; 87449; 87804; 87899; 88108; 88305-TC; 93005; 93010; 93306-TC; 93880-TC; 94010; 94760; 99281-25; J1644; J7030; Q9967

== ENCOUNTER 2019-01-12 12:39 | Emergency (ER) | payer OTHER ==
[2019-01-12 12:53] VITALS: BP 120/79; BMI 26.5
--- NOTE | 2019-01-12 13:56 | PDOC ---
History of Present Illness - General Chief Complaint: Vomiting/Diarrhea Stated Complaint: SENT BY PCP/ INFECTION - History of Present Illness Initial Comments: 58 y/o/f with PMHx of HTN, DM, HLD, breast cancer in remission here for nausea and vomiting x2 days. Patient states her nausea and vomiting started yesterday morning without any triggers. She has had multiple episodes of small amounts of vomit, no blood noted in the vomit. Her nausea feels worse anytime she moves. She had diarrhea 3 times yesterday but no episodes today, no blood noted in her diarrhea. She complains of feeling lightheaded. She does not recall eating any bad food before her symptoms started. She has not taken any medications for her symptoms. She is unable to keep any food down. She denies any abd pain, chest pain, hematuria, cough, or any sick contacts. Denies any recent travel. SHx: removal of breast mass, cardiac cath s/p 5 stents PMHx: CAD, HTN, DM, HLD, breast cancer - in remission Social Hx: Smokes 10 cigarettes per day, denies any alcohol use Past History - Past Medical History Allergies/Adverse Reactions: Allergies Allergy/AdvReac Type Severity Reaction Status Date / Time Penicillins Allergy Verified 06/14/18 13:51 Home Medications: Ambulatory Orders Losartan Potassium 100 mg PO DAILY #0 tablet 10/10/11 Nifedipine ER [Procardia XL -] 60 mg PO DAILY #0 tab.er.24 08/10/12 Tamoxifen Citrate 10 mg PO ASDIR 10/24/15 Albuterol 2.5/Ipratropium 0.5 [Duoneb -] 1 neb IH QID 06/14/18 Atorvastatin Calcium [Lipitor] 10 mg PO HS 06/14/18 Cholecalciferol (Vitamin D3) [Vitamin D3 -] 1,000 unit PO DAILY 06/14/18 Clopidogrel Bisulfate [Plavix -] 75 mg PO DAILY 06/14/18 Metformin HCl [Glucophage] 1,000 mg PO BID 06/14/18 Metoprolol Succinate [Toprol Xl -] 25 mg PO DAILY 06/14/18 Omeprazole Magnesium [Prilosec Otc] 20 mg PO DAILY 06/14/18 Rosuvastatin Calcium [Crestor] 10 mg PO HS 06/14/18 Tiotropium Ringsted [Spiriva Respimat] 4 gm IH BID 06/14/18 hydrOXYzine HCL [Atarax -] 25 mg PO TID 06/14/18 Anemia: No Asthma: No Cancer: Yes (breast ca) Cardiac Disorders: Yes ([place]) CVA: No COPD: No CHF: No Dementia: No Diabetes: Yes GI Disorders: No Disorders: No HTN: Yes Hypercholesterolemia: Yes Liver Disease: No Seizures: No Thyroid Disease: No - Surgical History Appendectomy: Yes Cardiac Surgery: Yes (stents) Cholecystectomy: No Lung Surgery: No Neurologic Surgery: No Orthopedic Surgery: No - Suicide/Smoking/Psychosocial Hx Smoking Status: No Smoking History: Current every day smoker Years of Tobacco Use: 15 Have you smoked in the past 12 months: No Number of Cigarettes Smoked Daily: 10 Information on smoking cessation initiated: No 'Breaking Loose' booklet given: 10/24/15 Hx Alcohol Use: No Drug/Substance Use Hx: No Substance Use Type: None Hx Substance Use Treatment: No Review of Systems - Review of Systems Constitutional: Yes: Chills, Fever HEENTM: No: Nose Congestion Respiratory: No: Cough, Shortness of Breath Cardiac (ROS): No: Chest Pain ABD/GI: Yes: Diarrhea, Nausea, Vomiting. No: Constipated, Abdominal cramping : No: Dysuria, Hematuria Musculoskeletal: No: Back Pain Integumentary: Yes: Dryness Neurological: Yes: Headache. No: Numbness *Physical Exam - Vital Signs Last Vital Signs Temp Pulse Resp BP Pulse Ox 101.2 F H 113 H 19 120/79 92 L 01/12/19 12:47 01/12/19 12:47 01/12/19 12:47 01/12/19 12:47 01/12/19 12:47 - Physical Exam General Appearance: Yes: Mild Distress HEENT: positive: EOMI, Pale Conjunctivae Neck: positive: Trachea midline, Supple. negative: Lymphadenopathy (R), Lymphadenopathy (L) Respiratory/Chest: positive: Wheezing (mild wheezing noted bilaterally). negative: Normal Breath Sounds, Accessory Muscle Use, Labored Respiration, Crackles, Rales, Rhonchi Cardiovascular: positive: Regular Rhythm, S1, S2, Tachycardia Gastrointestinal/Abdominal: positive: Normal Bowel Sounds, Soft. negative: Tender, Distended, Tenderness Musculoskeletal: negative: Vertebral Tenderness Extremity: positive: Normal Capillary Refill. negative: Swelling Integumentary: positive: Dry. negative: Swelling Neurologic: positive: Fully Oriented, Alert, Motor Strength 5/5 Heart Score/ECG Review #1 ECG reviewed & interpreted by me at: 15:25 General ECG Interpretation: Sinus Rhythm 01/12/19 15:25 vent rate: 11bpm TN interval: 112ms QRS duration: 80ms QT/QTc 326/443 P-R-T axes 66 81 50 sinus tachycardia No acute ischemic changes noted on EKG ED Treatment Course - LABORATORY CBC & Chemistry Diagram: 01/12/19 14:44 01/12/19 14:44 Medical Decision Making - Medical Decision Making 01/12/19 14:36 58 y/o/f with PMHx of HTN, DM, HLD, breast cancer in remission here for nausea and vomiting x2 days. Patient unable to keep down food. denies any abd pain. Patient sent by Dr. Lu for evaluation. Patient has a fever of 101.3F and is tachycardic. Sepsis workup ordered. Normal Saline, Tylenol and zofran ordered for symptom management. Will follow up labs and see if imaging is indicated. 01/12/19 15:42 Patient feeling less nauseous after receiving medication. Will discuss care with Dr. Lu. Patient takes Metformin 1000mg BID, believes that she took her medication this morning. 01/12/19 16:[address] Lu. He is recommending getting a CT scan of the abdomen to r/ o SBO and colitis. CT abd&pelvis w/contrast ordered. Patient kidney function normal. Patient feeling less nauseous. 01/12/19 21:50 Patient felt better after treatment, wanted to go home. CT showed no evidence of acute colitis. There was equivocal minimal concentric wall thickening noted of multiple distal ileal bowel loops. Told to follow up with Dr. Lu for follow up. *DC/Admit/Observation/Transfer Diagnosis at time of Disposition: Nausea & vomiting Qualifiers: Vomiting type: unspecified Vomiting Intractability: non-intractable Qualified Code(s): R11.2 - Nausea with vomiting, unspecified - Discharge Dispostion Disposition: HOME Condition at time of disposition: Good Decision to Admit order: No - Referrals Referrals: Kai Lu MD [Primary Care Provider] - - Patient Instructions Printed Discharge Instructions: DI for Nausea -- Adult, DI for Vomiting -- Adult Additional Instructions: If you have worsening symptoms or other concerns return to the ED. Follow up with your primary care doctor within the next few days. - Post Discharge Activity
[2019-01-12] MEDS ORDERED: SODIUM CHLORIDE 2,041 ML IV ONE (14:15)
[2019-01-12] MEDS ORDERED: ACETAMINOPHEN 1000 MG/100 ML VIAL (NON FORMULARY) IVPB ONE (14:17)
[2019-01-12] MEDS ORDERED: ONDANSETRON 4 MG/2 ML VIAL IVPUSH ONE (14:17)
[2019-01-12] MEDS ORDERED: ACETAMINOPHEN INJECTION 100 ML IVPB ONE (14:57)
[2019-01-12] MEDS ORDERED: ONDANSETRON 4 MG/2 ML VIAL ONE (14:58)
[2019-01-12 15:00] LABS: VENOUS PC02 37.9 mmHg (38-52); VENOUS PH 7.43 (7.31-7.41)
[2019-01-12 15:02] LABS: VENOUS PO2 < 49 mmHg (28-48)
--- NOTE | 2019-01-12 15:05 | PDOC ---
Documentation entered by Chel Mccain SCRIBE, acting as scribe for Tyrone Wick MD. Tyrone Wick MD: This documentation has been prepared by the Kalyn ríos Sammi, SCRIBE, under my direction and personally reviewed by me in its entirety. I confirm that the documentation accurately reflects all work, treatment, procedures, and medical decision making performed by me. Attending Attestation - Resident Resident Name: JnJessie brizuela - ED Attending Attestation I have performed the following: I have examined & evaluated the patient, The case was reviewed & discussed with the resident, I agree w/resident's findings & plan, Exceptions are as noted - HPI HPI: 01/12/19 14:33 The patient is a 58 year old female who presents to the emergency department for evaluation of 2 days of nausea and nonbloody, nonbilious vomiting. The patient also notes 3 episodes of diarrhea yesterday which has subsided. Denies sick contact or recent travel. She reports decreased appetite and lightheadedness. Denies chest pain, SOB, abdominal pain, fever, or chills. PCP: Aly Medical history: HTN, HLD, DM, breast cancer Surgical history: cardic cath. breast mastectomy Social history: current smoker - Physicial Exam PE: 01/12/19 15:04 "GENERAL: Awake, alert, and fully oriented, in no acute distress. HEAD: No signs of trauma EYES: PERRLA, EOMI, sclera anicteric, conjunctiva clear ENT: Auricles normal inspection, hearing grossly normal, nares patent, oropharynx clear without exudates. Moist mucosa NECK: Nontender, no stepoffs, Normal ROM, supple, no lymphadenopathy, JVD, or masses LUNGS: Breath sounds equal, clear to auscultation bilaterally. No wheezes, and no crackles HEART: Regular rate and rhythm, normal S1 and S2, no murmurs, rubs or gallops ABDOMEN: Soft, nontender, normoactive bowel sounds. No guarding, no rebound. No masses EXTREMITIES: Normal range of motion, no edema. No clubbing or cyanosis. No cords, erythema, or tenderness NEUROLOGICAL: Cranial nerves II through XII intact. 5/5 strength and sensation in all extremities, Normal speech, normal gait, normal cerebellar function SKIN: Warm, Dry, normal turgor, no rashes or lesions noted. - Medical Decision Making 01/12/19 15:04 58 F with nausea, vomiting, diarrhea. Suspect gastroenteritis. Will r/o colitis/ diverticulitis with CT. - labs - IVF, tylenol, zofran - CTAP Pt signed out to Dr. Madison at 4:30PM, pending CT and re-evaluation.
[2019-01-12 15:07] LABS: BASO % 0.4 % (0-2.0); HEMATOCRIT 41.8 % (32.4-45.2); LYMPH % 16.2 % (8-40); MCH 27.5 pg (25.7-33.7); MCHC 33.4 g/dl (32.0-36.0); MEAN CELL VOLUME 82.2 fl (80-96); MEAN PLT VOLUME 8.7 fl (7.5-11.1); NEUT % 76.4 % (42.8-82.8); PLATELET COUNT 233 K/MM3 (134-434); RBC 5.09 M/mm3 (3.60-5.2); RDW 15.5 % (11.6-15.6); WHITE BLOOD COUNT 10.3 K/mm3 (4.0-10.0)
[2019-01-12 15:17] LABS: INR 0.99 (0.83-1.09); PROTHROMBIN TIME (PATIENT) 11.7 SEC (9.7-13.0)
[2019-01-12 15:20] LABS: ACTIVATED PTT 27.9 SECONDS (25.2-36.5)
[2019-01-12 15:33] LABS: ALBUMIN 3.7 g/dl (3.4-5.0); BILIRUBIN,TOTAL 0.7 mg/dL (0.2-1); BLOOD UREA NITROGEN 11.4 mg/dL (7-18); CALCIUM 9.1 mg/dL (8.5-10.1); CREATININE 0.9 mg/dL (0.55-1.3); POTASSIUM 3.7 mmol/L (3.5-5.1); TOT PROT 7.8 g/dl (6.4-8.2)
[2019-01-12 17:43] VITALS: TEMP 98.8
[2019-01-12 17:44] VITALS: PULSE 85
[2019-01-12] MEDS ORDERED: SODIUM CHLORIDE 0.9% 500 ML INFUS.BAG IV ONE (18:10)
--- NOTE | 2019-01-13 12:26 | EKG ---
Test Reason : Blood Pressure : / mmHG Vent. Rate : 111 BPM Atrial Rate : 111 BPM P-R Int : 112 ms QRS Dur : 080 ms QT Int : 326 ms P-R-T Axes : 066 081 050 degrees QTc Int : 443 ms SINUS TACHYCARDIA POSSIBLE LEFT ATRIAL ENLARGEMENT ANTERIOR INFARCT , AGE UNDETERMINED ABNORMAL ECG WHEN COMPARED WITH ECG OF 14-JUN-2018 13:59, NO SIGNIFICANT CHANGE WAS FOUND Confirmed by MACHO LE MD ([id number]) on 01/13/2019 12:25:54 PM Referred By: Confirmed By:MACHO LE MD
== END 2019-01-12 19:28 | disposition home or self-care (01) ==
LOC: JER 12:39
PROC: 3E033GC Introduction of Other Therapeutic Substance into Peripheral Vein, Percutaneous Approach (ICD-10-PCS; principal; 2019-01-12)
PROC: 3E033GC Introduction of Other Therapeutic Substance into Peripheral Vein, Percutaneous Approach (ICD-10-PCS; 2019-01-12)
PROC: 3E033GC Introduction of Other Therapeutic Substance into Peripheral Vein, Percutaneous Approach (ICD-10-PCS; 2019-01-12)
PROC: 3E033GC Introduction of Other Therapeutic Substance into Peripheral Vein, Percutaneous Approach (ICD-10-PCS; 2019-01-12)
DX: E87.6 Hypokalemia (principal); E83.42 Hypomagnesemia; E86.0 Dehydration; I25.10 Atherosclerotic heart disease of native coronary artery without angina pectoris; I10 Essential (primary) hypertension; Z95.5 Presence of coronary angioplasty implant and graft; I25.2 Old myocardial infarction; E11.9 Type 2 diabetes mellitus without complications; Z79.84 Long term (current) use of oral hypoglycemic drugs; E78.5 Hyperlipidemia, unspecified; Z85.3 Personal history of malignant neoplasm of breast; F17.210 Nicotine dependence, cigarettes, uncomplicated
CPT/HCPCS: 36415; 74177-TC; 80053; 82803; 83605; 84484; 85025; 85610; 85730; 87040; 93005; 93010; 99282-25; J0131; J7030

== ENCOUNTER 2019-01-13 18:37 | Emergency (ER) | payer OTHER ==
[2019-01-13 18:42] VITALS: BMI 30.4
--- NOTE | 2019-01-13 18:42 | PDOC ---
Rapid Medical Evaluation Chief Complaint: Weakness Time Seen by Provider: 01/13/19 18:41 Medical Evaluation: Allergies Allergy/AdvReac Type Severity Reaction Status Date / Time Penicillins Allergy Verified 06/14/18 13:51 01/13/19 18:41 I have performed a brief in-person evaluation of this patient. The patient presents with a chief complaint of: generalized weakness- seen here yesterday Pertinent physical exam findings: no focal deficits I have ordered the following: labs, EKG The patient will proceed to the ED for further evaluation. 01/13/19 18:42 Discharge Disposition - Diagnosis Generalized weakness - Referrals - Patient Instructions - Post Discharge Activity
--- NOTE | 2019-01-13 19:14 | PDOC ---
History of Present Illness - General Chief Complaint: Weakness Stated Complaint: VOMITING Time Seen by Provider: 01/13/19 18:41 History Source: Patient Exam Limitations: No Limitations - History of Present Illness Initial Comments: Patrick Garcia is a 58 yo F w a pmh of CAD, GA s/p 5 stents, HTN, NIDDM, HLD, breast cancer in remission who presents to the [facility] ER via private auto with vomiting and generalized weakness after being seen in the ER yesterday. She had a CTAP performed yesterday which showed possible distal ileitis but was DC'ed bc she felt much better after IV hydration and anti-emetics yesterday. The patient returns today because she has been feeling overall generalized weakness. She states she has not experienced any nausea or vomiting today but just feels weak. Her son who is at bedside states he is concerned bc the patient has not eaten much today and looks weak. Patient endorses decreased PO intake today. Patient states she has also had a slight headache this morning which resolved after taking 800 mg of motrin. Patient denies any nausea, vomiting, fevers, chills, abdominal pain, chest pain , or any pain anywhere else. PCP: Dr. Lu PSH: Removal of breast mass, cardiac cath s/p 5 stents, appendectomy Social Hx: Smokes 10 cigarettes per day for 15 years, denies any alcohol or other substance usage Allergies: Penicillins Past History - Past Medical History Allergies/Adverse Reactions: Allergies Allergy/AdvReac Type Severity Reaction Status Date / Time Penicillins Allergy Verified 01/13/19 18:42 Home Medications: Ambulatory Orders Losartan Potassium 100 mg PO DAILY #0 tablet 10/10/11 Nifedipine ER [Procardia XL -] 60 mg PO DAILY #0 tab.er.24 08/10/12 Tamoxifen Citrate 10 mg PO ASDIR 10/24/15 Atorvastatin Calcium [Lipitor] 10 mg PO HS 06/14/18 Cholecalciferol (Vitamin D3) [Vitamin D3 -] 1,000 unit PO DAILY 06/14/18 Clopidogrel Bisulfate [Plavix -] 75 mg PO DAILY 06/14/18 Metformin HCl [Glucophage] 1,000 mg PO BID 06/14/18 Metoprolol Succinate [Toprol Xl -] 25 mg PO DAILY 06/14/18 Omeprazole Magnesium [Prilosec Otc] 20 mg PO DAILY 06/14/18 Metoclopramide HCl [Reglan -] 10 mg PO DAILY 14 Days #14 tablet 01/13/19 Anemia: No Asthma: No Cancer: Yes (breast ca) Cardiac Disorders: Yes ([place]) CVA: No COPD: No CHF: No Dementia: No Diabetes: Yes GI Disorders: No Disorders: No HTN: Yes Hypercholesterolemia: Yes Liver Disease: No Seizures: No Thyroid Disease: No - Surgical History Appendectomy: Yes Cardiac Surgery: Yes (4 stents) Cholecystectomy: No Lung Surgery: No Neurologic Surgery: No Orthopedic Surgery: No - Immunization History Immunization Up to Date: Yes - Suicide/Smoking/Psychosocial Hx Smoking Status: No Smoking History: Current every day smoker Years of Tobacco Use: 15 Have you smoked in the past 12 months: No Number of Cigarettes Smoked Daily: 10 Information on smoking cessation initiated: No 'Breaking Loose' booklet given: 10/24/15 Hx Alcohol Use: No Drug/Substance Use Hx: No Substance Use Type: None Hx Substance Use Treatment: No Review of Systems - Review of Systems Able to Perform ROS?: Yes Comments:: CONSTITUTIONAL: Present: Fatigue Absent: fever, no chills EYES: Absent: visual changes ENT: Absent: ear pain, no sore throat CARDIOVASCULAR: Absent: chest pain, no palpitations RESPIRATORY: Absent: cough, no SOB GI: Present: Nausea, vomiting Absent: abdominal pain, no constipation, no diarrhea GENITOURINARY: Absent: dysuria, no frequency, no hematuria MUSKULOSKELETAL: Absent: back pain, no arthralgia, no myalgia SKIN: Absent: rash NEURO: Present: headache *Physical Exam - Vital Signs Last Vital Signs Temp Pulse Resp BP Pulse Ox 97.9 F 80 19 112/74 96 01/13/19 18:39 01/13/19 18:39 01/13/19 18:39 01/13/19 18:39 01/13/19 18:39 - Physical Exam Comments: GENERAL: Well-appearing, well-nourished. No apparent distress. HEENT: Normocephalic, atraumatic. PERRL, EOM intact. CARDIOVASCULAR: Normal S1, S2. Regular rate and rhythm. PULMONARY: No evidence of respiratory distress. Lungs clear to auscultation bilaterally. No wheezing, rales or rhonchi. ABDOMEN: Soft, non-distended, non-tender. EXTREMITIES: Normal ROM in all four extremities. No gross deformities. SKIN: Warm, dry. No rash NEUROLOGICAL: No focal neurological deficits. Heart Score/ECG Review - ECG Intrepretation Rhythm: Regular Rhythm - Sidney Sidney: Normal - P and GA Prominent R with upright T in V1 (true posterior GA): No Delta Wave(s) Present: No WPW: No - QRS Poor R Wave Progression: No Q Wave Present: No - ST and T Early Repolarization: No Non Specific ST-T Wave changes: No Flattened T Waves: No Prolonged Q-T Interval: Yes - ECG Impressions Normal ECG: No Non-specific ST Elevation: No Ischemic Changes: Yes (TWI in V3 unchanged from 01/12/19) Bradycardia: No Torsades rossy Pointes: No WPW: No ED Treatment Course - LABORATORY CBC & Chemistry Diagram: 01/13/19 19:55 01/13/19 19:55 Medical Decision Making - Medical Decision Making Patrick Garcia is a 58 yo F w a pmh of CAD, GA s/p 5 stents, HTN, NIDDM, HLD, breast cancer in remission who presents to the [facility] ER via private auto with vomiting and generalized weakness after being seen in the ER yesterday. She had a CTAP performed yesterday which showed possible distal ileitis but was DC'ed bc she felt much better after IV hydration and anti-emetics yesterday. The patient returns today because she has been feeling overall generalized weakness. She states she has not experienced any nausea or vomiting today but just feels weak. Her son who is at bedside states he is concerned bc the patient has not eaten much today and looks weak. Patient endorses decreased PO intake today. Patient states she has also had a slight headache this morning which resolved after taking 800 mg of motrin. Patient denies any nausea, vomiting, fevers, chills, abdominal pain, chest pain , or any pain anywhere else. Vital Signs Temp Pulse Resp BP Pulse Ox 97.9 F 80 19 112/74 96 01/13/19 18:39 01/13/19 18:39 01/13/19 18:39 01/13/19 18:39 01/13/19 18:39 MDM: Patient re-presents to the ER with weakness and decreased PO intake after she appeared to have multiple episodes of vomiting yesterday. Will obtain labs to r/o any electrolyte abnormalities Plan: Labs, urine, IV hydration, anti-emetics, EKG, supportive care, PO challenge, re-assess. Labs: Significant for mildly low potassium at 3.2, low mag at 1.5, low sodium at 132, mildly elevated glucose at 237 - repleting with IV NS, 1 gram mag in d5w, 40 potassium Urine: Shows 2+ LE, trace ketonuria PCP - Dr. Lu consult: Dr. Lu knows patient well and believes patient can be DC'ed if she feels better and can eat a normal full meal with PCP fu in the next 10 to 14 days. Requests to send patient home with Reglan for nausea PO challenge: Patient was seen eating at bedside and states she feels better. She would like to be discharged. Re-assessment: Patient feels well and has no complaints. Disposition: Home with PCP fu and reglan for nausea *DC/Admit/Observation/Transfer Diagnosis at time of Disposition: Generalized weakness, Hypokalemia, Hypomagnesemia, Dehydration - Discharge Dispostion Disposition: HOME Condition at time of disposition: Improved Decision to Admit order: No - Prescriptions Prescriptions: Metoclopramide HCl [Reglan -] 10 mg PO DAILY 14 Days #14 tablet - Referrals Referrals: Kai Lu MD [Primary Care Provider] - - Patient Instructions Printed Discharge Instructions: DI for Muscle Weakness Additional Instructions: You came into the ER with generalized weakness. We gave you IV hydration and corrected your electrolytes. We are sending a medication to your pharmacy to help you with nausea, please make sure to go and pick it up. Come back to the ER immediately if your pain worsens, you feel sick, have chest pain, or any other new or worsening concerns. Please make sure to call up Dr. Lu tomorrow and schedule an appointment for the next 3 to 5 days to make sure you are getting better and being taken care of. Thank you for coming to the [facility] ER. We hope you feel better soon! Print Language: BERMUDIAN - Post Discharge Activity
[2019-01-13] MEDS ORDERED: SODIUM CHLORIDE 0.9% 500 ML INFUS.BAG IV ONE ×2 (19:29→20:40)
[2019-01-13] MEDS ORDERED: ONDANSETRON 4 MG/2 ML VIAL IVPUSH ONE (19:30)
[2019-01-13] MEDS ORDERED: ACETAMINOPHEN 1000 MG/100 ML VIAL (NON FORMULARY) IVPB ONE (19:39)
[2019-01-13] MEDS ORDERED: ACETAMINOPHEN INJECTION 100 ML IVPB ONE (19:57)
[2019-01-13] MEDS ORDERED: ONDANSETRON 4 MG/2 ML VIAL ONE (19:57)
[2019-01-13 20:02] LABS: BASO % 1.4 % (0-2.0); HEMATOCRIT 40.6 % (32.4-45.2); HEMOGLOBIN 13.3 GM/dL (10.7-15.3); LYMPH % 20.7 % (8-40); MCH 27.3 pg (25.7-33.7); MCHC 32.8 g/dl (32.0-36.0); MEAN CELL VOLUME 83.4 fl (80-96); MEAN PLT VOLUME 8.7 fl (7.5-11.1); MONO % 7.8 % (3.8-10.2); NEUT % 70.1 % (42.8-82.8); PLATELET COUNT 258 K/MM3 (134-434); RBC 4.87 M/mm3 (3.60-5.2); RDW 15.1 % (11.6-15.6); WHITE BLOOD COUNT 17.3 K/mm3 (4.0-10.0)
--- NOTE | 2019-01-13 20:23 | PDOC ---
Documentation entered by Charlee Reddy SCRIBE, acting as scribe for Maryanne Madison DO. Maryanne Madison DO: This documentation has been prepared by the Maureen ríos Xhesika, SCRIBE, under my direction and personally reviewed by me in its entirety. I confirm that the documentation accurately reflects all work, treatment, procedures, and medical decision making performed by me. Attending Attestation - Resident Resident Name: Cam Chaves - ED Attending Attestation I have performed the following: I have examined & evaluated the patient, The case was reviewed & discussed with the resident, I agree w/resident's findings & plan, Exceptions are as noted - HPI HPI: 01/13/19 20:06 The patient is a 57 year old Female with a PMH of CAD, [place] s/p 5 stents, HTN, NIDDM, HLD, breast cancer in remission who presents to the ED for generalized weakness. Patient was seen here in the ED yesterday for similar symptoms had a CTAP that showed possible distal ileitis and was discharged with relief of symptoms. Patient states she has been endorsing decreased PO intake today, she only had soup which concerned her. Patient states she had a normal BM today. Allergies: penicillins Past surgical history: Removal of breast mass, cardiac cath s/p 5 stents, appendectomy Social history: Smokes 10 cigarettes per day for 15 years, denies any alcohol or other substance usage PCP: Dr. Lu - Physicial Exam PE: 01/13/19 20:07 GENERAL: Awake, alert, and fully oriented, in no acute distress HEAD: No signs of traum ENT: Auricles normal inspection, hearing grossly normal, nares patent, oropharynx clear without exudates. Moist mucosa LUNGS: Breath sounds equal, clear to auscultation bilaterally. No wheezes, and no crackles HEART: Regular rate and rhythm, normal S1 and S2, no murmurs, rubs or gallops ABDOMEN: Soft, nontender, normoactive bowel sounds. No guarding, no rebound. No masses EXTREMITIES: Normal range of motion, no edema. No clubbing or cyanosis. No cords, erythema, or tenderness NEUROLOGICAL: Cranial nerves II through XII grossly intact. Normal speech, normal gait SKIN: Warm, Dry, normal turgor, no rashes or lesions noted. - Critical Care Time Total Critical Care Time: 35 Critical Care Statement: The care of this patient involved high complexity decision making to prevent further life threatening deterioration of the patient 's condition and/or to evaluate & treat vital organ system(s) failure or risk of failure. - Medical Decision Making 01/13/19 20:21 I, Dr. Maryanne Madison, DO, attest that this document has been prepared under my direction and personally reviewed by me in its entirety. I further attest, that it accurately reflects all work, treatment, procedures and medical decision -making performed by me. 01/13/19 20:21 a/p: 58yo female seen yesterday for n/v/d who presents today for generalized weakness today and decreased po intake -pt denies f/c -no nausea or vomiting today -no diarrhea - had a normal bm today -no blood in stool -denies abd pain or cramping -will send labs, ivf hydration, po intake -pt is nontoxic in appearance -will monitor and reassess -PMD is Dr. Lu 01/13/19 20:[address] Lu who recommends adding reglan for poss gastroparesis 01/13/19 20:44 low potassium and mag will replace with iv mag 01/13/19 20:45 01/13/19 22:38 pt eating chips and drinking fluids 01/14/19 01:25 pt feeling better, tolerated po, stable for dc to home Heart Score/ECG Review - ECG Intrepretation Comment:: 01/13/19 20:44 sinus at 77, nl axis, nl nerval, no acute st/t wave findings
[2019-01-13 20:28] LABS: PH,URINE 6.5 (5.0-8.0); URINE APPEARANCE CLOUDY; URINE BILIRUBIN NEGATIVE (NEGATIVE); URINE COLOR YELLOW; URINE GLUCOSE (UA) TRACE (NEGATIVE); URINE KETONE TRACE (NEGATIVE); URINE LEUK ESTERASE 2+ (NEGATIVE); URINE NITRITE NEGATIVE (NEGATIVE); URINE PROTEIN 2+ (NEGATIVE)
[2019-01-13 20:36] LABS: MAGNESIUM 1.5 mg/dL (1.8-2.4)
[2019-01-13 20:38] LABS: ALBUMIN 3.5 g/dl (3.4-5.0); BILIRUBIN,TOTAL 0.8 mg/dL (0.2-1); BLOOD UREA NITROGEN 9.5 mg/dL (7-18); CALCIUM 8.1 mg/dL (8.5-10.1); POTASSIUM 3.2 mmol/L (3.5-5.1); TOT PROT 7.2 g/dl (6.4-8.2)
[2019-01-13] MEDS ORDERED: POTASSIUM CHLORIDE TABS 20 MEQ TABLET.ER (FP) PO ONE ×2 (20:39→21:09)
[2019-01-13] MEDS ORDERED: MAGNESIUM SULF 50% (8.12 MEQ/2 ML-1 GM VIAL) IVPB ONE (20:40)
[2019-01-13] MEDS ORDERED: MAGNESIUM 1GM/D5W - 1 GM/100 ML IVPB IVPB ONE (21:09)
[2019-01-13] MEDS ORDERED: METOCLOPRAMIDE HCL INJECTION 10 MG/2 ML VIAL IVPUSH ONE (21:20)
[2019-01-13] MEDS ORDERED: METOCLOPRAMIDE HCL INJECTION 10 MG/2 ML VIAL ONE (21:41)
[2019-01-13] MEDS ORDERED: CLINDAMYCIN 900 MG PREMIX IVPB 900 MG/50 ML BAG IVPB ONE (21:44)
[2019-01-13] MEDS ORDERED: VANCOMYCIN 1,000 MG in DEXTROSE 5%-WATER - 250 ML IVPB ONE (21:58)
[2019-01-13 22:01] LABS: EPI CELLS 7.5 /HPF (0-5/HPF); HYALINE CASTS 3.36 /lpf (0-8); URINE RBC 1.4 /hpf (0-4); URINE WBC 23.5 /hpf (0-5)
[2019-01-13 22:02] LABS: URINE BACTERIA 293.5 /hpf (NEGATIVE)
[2019-01-14 00:37] VITALS: BP 128/72; PULSE 84; TEMP 98.2
--- NOTE | 2019-01-14 14:07 | EKG ---
Test Reason : Blood Pressure : / mmHG Vent. Rate : 077 BPM Atrial Rate : 077 BPM P-R Int : 118 ms QRS Dur : 084 ms QT Int : 430 ms P-R-T Axes : 062 057 050 degrees QTc Int : 486 ms NORMAL SINUS RHYTHM WITH SINUS ARRHYTHMIA PROLONGED QT NONSPECIFIC T WAVE ABNORMALITY Confirmed by DC CONDE MD ([id number]) on 01/14/2019 2:07:29 PM Referred By: Confirmed By:DC CONDE MD
== END 2019-01-14 00:05 | disposition home or self-care (01) ==
LOC: JER 18:37
PROC: 3E033NZ Introduction of Analgesics, Hypnotics, Sedatives into Peripheral Vein, Percutaneous Approach (ICD-10-PCS; principal; 2019-01-13)
PROC: 3E033GC Introduction of Other Therapeutic Substance into Peripheral Vein, Percutaneous Approach (ICD-10-PCS; 2019-01-13)
PROC: 3E0337Z Introduction of Electrolytic and Water Balance Substance into Peripheral Vein, Percutaneous Approach (ICD-10-PCS; 2019-01-13)
DX: R53.1 Weakness (principal); E87.6 Hypokalemia; E86.0 Dehydration; E83.42 Hypomagnesemia
CPT/HCPCS: 36415; 80053; 81003; 83735; 84100; 85025; 93005; 93010; 99284-25; J0131

== ENCOUNTER 2023-02-05 09:51 | Inpatient (IN) | payer OTHER ==
[2023-02-05] MEDS ORDERED: ACETAMINOPHEN 325 MG TABLET (FP) ONE (11:57)
[2023-02-05] MEDS ORDERED: oxyCODONE HCL 5 MG TABLET ONE (11:58)
[2023-02-05] MEDS: ACETAMINOPHEN 325 MG TABLET (FP) PO PRN ×2 (12:01→22:03)
[2023-02-05] MEDS: oxyCODONE HCL 5 MG TABLET PO PRN ×2 (12:01→19:04)
[2023-02-05] MEDS: INSULIN SLIDING SCALE (NOVOLOG) 1 VIAL SQ SCH ×3 (12:45→22:00)
[2023-02-05] MEDS ORDERED: valACYclovir HCL 500 MG TABLET (FP) PO ONE (13:51)
[2023-02-05] MEDS ORDERED: valACYclovir HCL 500 MG TABLET (FP) ONE (14:16)
[2023-02-05 16:34] VITALS: BMI 27.8
[2023-02-05] MEDS: metFORMIN HCL 500 MG TABLET (FP) PO SCH (17:21)
[2023-02-05] MEDS ORDERED: CALAMINE 8% TOPICAL LOTION 177 ML BOTTLE TP PRN (18:08)
[2023-02-05] MEDS: valACYclovir HCL 500 MG TABLET (FP) PO SCH (22:02)
[2023-02-05] MEDS: ATORVASTATIN CA 10 MG TABLET (FP) PO SCH (22:02)
[2023-02-05] MEDS: GABAPENTIN 100 MG CAPSULE PO SCH (22:03)
[2023-02-05] MEDS: HEPARIN NA (PORCINE) 5,000 UNITS/ML 1ML VIAL SQ SCH (22:04)
[2023-02-06] MEDS: oxyCODONE HCL 5 MG TABLET PO PRN ×4 (00:49→17:10)
[2023-02-06] MEDS: sitaGLIPtin PHOSPHATE 50 MG TABLET PO SCH (06:45)
[2023-02-06] MEDS: GABAPENTIN 100 MG CAPSULE PO SCH ×3 (06:45→21:32)
[2023-02-06] MEDS: metFORMIN HCL 500 MG TABLET (FP) PO SCH ×2 (06:45→17:11)
[2023-02-06] MEDS: INSULIN SLIDING SCALE (NOVOLOG) 1 VIAL SQ SCH ×4 (06:45→21:41)
[2023-02-06] MEDS: HEPARIN NA (PORCINE) 5,000 UNITS/ML 1ML VIAL SQ SCH ×2 (10:00→21:32)
[2023-02-06] MEDS: PANTOPRAZOLE 40 MG TABLET PO SCH (10:00)
[2023-02-06] MEDS: NIFEdipine E.R 60 MG TABLET PO SCH (10:00)
[2023-02-06] MEDS: valACYclovir HCL 500 MG TABLET (FP) PO SCH ×2 (10:01→21:32)
[2023-02-06] MEDS: metoPROLOL SUCCINATE 25 MG TAB.SR.24H (FP) PO SCH (10:01)
[2023-02-06] MEDS: LOSARTAN POTASSIUM 50 MG TABLET PO SCH (10:01)
[2023-02-06] MEDS: CLOPIDOGREL BISULFATE 75 MG TABLET (FP) PO SCH (10:01)
[2023-02-06] MEDS: ACETAMINOPHEN 325 MG TABLET (FP) PO PRN (14:58)
[2023-02-06] MEDS: ATORVASTATIN CA 10 MG TABLET (FP) PO SCH (21:32)
[2023-02-07] MEDS: oxyCODONE HCL 5 MG TABLET PO PRN ×4 (01:59→20:45)
[2023-02-07] MEDS: GABAPENTIN 100 MG CAPSULE PO SCH ×3 (06:19→21:06)
[2023-02-07] MEDS: metFORMIN HCL 500 MG TABLET (FP) PO SCH ×2 (06:19→16:51)
[2023-02-07] MEDS: sitaGLIPtin PHOSPHATE 50 MG TABLET PO SCH (06:19)
[2023-02-07] MEDS: INSULIN SLIDING SCALE (NOVOLOG) 1 VIAL SQ SCH ×4 (06:29→21:35)
[2023-02-07 08:05] LABS: HEMATOCRIT 37.4 % (32.4-45.2); MCH 27.9 pg (25.7-33.7); MCHC 32.2 g/dl (32.0-36.0); MEAN CELL VOLUME 86.7 fl (80-96); MEAN PLT VOLUME 8.7 fl (7.5-11.1); PLATELET COUNT 396 10^3/uL (134-434); RBC 4.31 M/mm3 (3.60-5.2); RDW 14.2 % (11.6-15.6); WHITE BLOOD COUNT 11.9 K/mm3 (4.0-10.0)
[2023-02-07 08:22] LABS: POTASSIUM 4.9 mmol/L (3.5-5.1)
[2023-02-07 08:24] LABS: ALBUMIN 2.8 g/dl (3.4-5.0); CALCIUM 9.1 mg/dL (8.5-10.1)
[2023-02-07 08:28] LABS: CREATININE 0.8 mg/dL (0.55-1.3)
[2023-02-07 08:29] LABS: BILIRUBIN,TOTAL 0.3 mg/dL (0.2-1); TOT PROT 6.7 g/dl (6.4-8.2)
[2023-02-07] MEDS: LOSARTAN POTASSIUM 50 MG TABLET PO SCH (09:14)
[2023-02-07] MEDS: metoPROLOL SUCCINATE 25 MG TAB.SR.24H (FP) PO SCH (09:14)
[2023-02-07] MEDS: PANTOPRAZOLE 40 MG TABLET PO SCH (09:14)
[2023-02-07] MEDS: CLOPIDOGREL BISULFATE 75 MG TABLET (FP) PO SCH (09:15)
[2023-02-07] MEDS: valACYclovir HCL 500 MG TABLET (FP) PO SCH ×2 (09:15→21:06)
[2023-02-07] MEDS: NIFEdipine E.R 60 MG TABLET PO SCH (09:15)
[2023-02-07] MEDS: HEPARIN NA (PORCINE) 5,000 UNITS/ML 1ML VIAL SQ SCH ×2 (09:15→21:06)
[2023-02-07] MEDS ORDERED: INSULIN (NOVOLOG) ASPART 100 UNITS/ML 10ML VIAL ONE (11:49)
[2023-02-07] MEDS: ATORVASTATIN CA 10 MG TABLET (FP) PO SCH (21:06)
[2023-02-08] MEDS: GABAPENTIN 100 MG CAPSULE PO SCH ×3 (05:55→21:07)
[2023-02-08] MEDS: INSULIN SLIDING SCALE (NOVOLOG) 1 VIAL SQ SCH ×4 (06:26→22:41)
[2023-02-08] MEDS: metFORMIN HCL 500 MG TABLET (FP) PO SCH ×2 (06:28→17:03)
[2023-02-08] MEDS: sitaGLIPtin PHOSPHATE 50 MG TABLET PO SCH (06:28)
[2023-02-08] MEDS: oxyCODONE HCL 5 MG TABLET PO PRN ×3 (07:39→22:34)
[2023-02-08] MEDS: HEPARIN NA (PORCINE) 5,000 UNITS/ML 1ML VIAL SQ SCH ×2 (09:53→21:08)
[2023-02-08] MEDS: LOSARTAN POTASSIUM 50 MG TABLET PO SCH (09:54)
[2023-02-08] MEDS: valACYclovir HCL 500 MG TABLET (FP) PO SCH ×2 (09:54→21:08)
[2023-02-08] MEDS: metoPROLOL SUCCINATE 25 MG TAB.SR.24H (FP) PO SCH (09:54)
[2023-02-08] MEDS: CLOPIDOGREL BISULFATE 75 MG TABLET (FP) PO SCH (09:54)
[2023-02-08] MEDS: NIFEdipine E.R 60 MG TABLET PO SCH (09:54)
[2023-02-08] MEDS: PANTOPRAZOLE 40 MG TABLET PO SCH (09:54)
[2023-02-08 16:00] VITALS: RESP 18
[2023-02-08] MEDS: ATORVASTATIN CA 10 MG TABLET (FP) PO SCH (21:08)
[2023-02-09] MEDS: metFORMIN HCL 500 MG TABLET (FP) PO SCH (06:26)
[2023-02-09] MEDS: sitaGLIPtin PHOSPHATE 50 MG TABLET PO SCH (06:26)
[2023-02-09] MEDS: GABAPENTIN 100 MG CAPSULE PO SCH (06:26)
[2023-02-09] MEDS: INSULIN SLIDING SCALE (NOVOLOG) 1 VIAL SQ SCH ×2 (06:30→11:06)
[2023-02-09] MEDS: CLOPIDOGREL BISULFATE 75 MG TABLET (FP) PO SCH (09:16)
[2023-02-09] MEDS: oxyCODONE HCL 5 MG TABLET PO PRN (09:16)
[2023-02-09] MEDS: NIFEdipine E.R 60 MG TABLET PO SCH (09:17)
[2023-02-09] MEDS: valACYclovir HCL 500 MG TABLET (FP) PO SCH (09:17)
[2023-02-09] MEDS: PANTOPRAZOLE 40 MG TABLET PO SCH (09:17)
[2023-02-09] MEDS: metoPROLOL SUCCINATE 25 MG TAB.SR.24H (FP) PO SCH (09:17)
[2023-02-09] MEDS: LOSARTAN POTASSIUM 50 MG TABLET PO SCH (09:17)
[2023-02-09] MEDS: HEPARIN NA (PORCINE) 5,000 UNITS/ML 1ML VIAL SQ SCH (09:17)
[2023-02-09 10:34] VITALS: BP 124/69; PULSE 87; TEMP 98.5
== END 2023-02-09 12:26 | DRG 383 ==
LOC: JER 09:51 → JERBED 10:39 → J6S 15:43
PROVIDERS: ADMIT Family Medicine; ATTEND Family Medicine
DX: B02.9 Zoster without complications (principal); E11.40 Type 2 diabetes mellitus with diabetic neuropathy, unspecified; E78.5 Hyperlipidemia, unspecified; I10 Essential (primary) hypertension; I25.10 Atherosclerotic heart disease of native coronary artery without angina pectoris; Z74.09 Other reduced mobility
CPT/HCPCS: 36415; 80053; 82962; 85027; 97116-GP; 97162-GP; 99285-25; J1644

== ENCOUNTER 2023-02-16 11:14 | Inpatient (IN) | payer OTHER ==
[2023-02-16 11:45] VITALS: BMI 28.1
[2023-02-16 13:01] LABS: BASO % 0.7 % (0-2.0); EOS % 1.2 % (0-4.5); HEMATOCRIT 39.5 % (32.4-45.2); HEMOGLOBIN 12.6 GM/dL (10.7-15.3); LYMPH % 32.6 % (8-40); MCH 27.8 pg (25.7-33.7); MCHC 31.9 g/dl (32.0-36.0); MEAN CELL VOLUME 87.2 fl (80-96); MEAN PLT VOLUME 8.5 fl (7.5-11.1); MONO % 6.9 % (3.8-10.2); NEUT % 58.6 % (42.8-82.8); PLATELET COUNT 401 10^3/uL (134-434); RBC 4.53 M/mm3 (3.60-5.2); RDW 14.7 % (11.6-15.6)
[2023-02-16 13:18] LABS: POTASSIUM 4.6 mmol/L (3.5-5.1)
[2023-02-16 13:20] LABS: ALBUMIN 3.2 g/dl (3.4-5.0); CALCIUM 9.4 mg/dL (8.5-10.1)
[2023-02-16 13:23] LABS: CREATININE 0.8 mg/dL (0.55-1.3)
[2023-02-16 13:25] LABS: BILIRUBIN,TOTAL 0.4 mg/dL (0.2-1); TOT PROT 7.2 g/dl (6.4-8.2)
[2023-02-16] MEDS ORDERED: oxyCODONE HCL 5 MG TABLET ONE (17:15)
[2023-02-16] MEDS: oxyCODONE HCL 5 MG TABLET PO PRN ×2 (17:17→22:24)
[2023-02-16] MEDS: ATORVASTATIN CA 80 MG TABLET (FP) PO SCH (21:24)
[2023-02-16] MEDS: METOPROLOL TARTRATE 25 MG TABLET (FP) PO SCH (21:24)
[2023-02-16] MEDS: GABAPENTIN 100 MG CAPSULE PO SCH (21:24)
[2023-02-16] MEDS: valACYclovir HCL 500 MG TABLET (FP) PO SCH (21:29)
[2023-02-17] MEDS: metFORMIN HCL 500 MG TABLET (FP) PO SCH ×2 (06:25→16:24)
[2023-02-17] MEDS: GABAPENTIN 100 MG CAPSULE PO SCH ×3 (06:26→21:44)
[2023-02-17] MEDS: oxyCODONE HCL 5 MG TABLET PO PRN ×4 (06:26→21:44)
[2023-02-17] MEDS: sitaGLIPtin PHOSPHATE 50 MG TABLET PO SCH (06:26)
[2023-02-17] MEDS: valACYclovir HCL 500 MG TABLET (FP) PO SCH ×2 (10:15→21:44)
[2023-02-17] MEDS: CLOPIDOGREL BISULFATE 75 MG TABLET (FP) PO SCH (10:16)
[2023-02-17] MEDS: LOSARTAN POTASSIUM 50 MG TABLET PO SCH (10:16)
[2023-02-17] MEDS: PANTOPRAZOLE 40 MG TABLET PO SCH (10:16)
[2023-02-17] MEDS: NIFEdipine E.R 60 MG TABLET PO SCH (10:17)
[2023-02-17] MEDS: METOPROLOL TARTRATE 25 MG TABLET (FP) PO SCH ×2 (10:17→21:44)
[2023-02-17] MEDS: ENOXAPARIN NA (PORCINE) 40 MG/0.4 ML DISP.SYRIN SQ SCH (10:17)
[2023-02-17 10:58] LABS: BASO % 0.7 % (0-2.0); EOS % 0.5 % (0-4.5); HEMATOCRIT 39.5 % (32.4-45.2); HEMOGLOBIN 13.2 GM/dL (10.7-15.3); LYMPH % 22.3 % (8-40); MCH 28.6 pg (25.7-33.7); MCHC 33.3 g/dl (32.0-36.0); MEAN PLT VOLUME 8.9 fl (7.5-11.1); MONO % 5.1 % (3.8-10.2); NEUT % 71.4 % (42.8-82.8); PLATELET COUNT 360 10^3/uL (134-434); RBC 4.59 M/mm3 (3.60-5.2); WHITE BLOOD COUNT 10.7 K/mm3 (4.0-10.0)
[2023-02-17 11:29] LABS: ALBUMIN 3.1 g/dl (3.4-5.0); CALCIUM 9.1 mg/dL (8.5-10.1)
[2023-02-17 11:32] LABS: CREATININE 0.9 mg/dL (0.55-1.3)
[2023-02-17 11:34] LABS: BILIRUBIN,TOTAL 0.4 mg/dL (0.2-1)
[2023-02-17] MEDS: ACETAMINOPHEN 325 MG TABLET (FP) PO PRN ×2 (13:31→21:47)
[2023-02-17] MEDS: INSULIN SLIDING SCALE (NOVOLOG) 1 VIAL SQ SCH ×5 (14:55→21:53)
[2023-02-17] MEDS ORDERED: INSULIN (NOVOLOG) ASPART 100 UNITS/ML 10ML VIAL ONE ×2 (15:44→21:38)
[2023-02-17] MEDS: ATORVASTATIN CA 80 MG TABLET (FP) PO SCH (21:43)
[2023-02-18] MEDS: oxyCODONE HCL 5 MG TABLET PO PRN ×3 (03:28→21:10)
[2023-02-18] MEDS: metFORMIN HCL 500 MG TABLET (FP) PO SCH ×2 (06:05→17:13)
[2023-02-18] MEDS: sitaGLIPtin PHOSPHATE 50 MG TABLET PO SCH (06:05)
[2023-02-18] MEDS: GABAPENTIN 100 MG CAPSULE PO SCH (06:05)
[2023-02-18] MEDS: INSULIN SLIDING SCALE (NOVOLOG) 1 VIAL SQ SCH ×4 (06:10→21:17)
[2023-02-18] MEDS: NIFEdipine E.R 60 MG TABLET PO SCH (09:24)
[2023-02-18] MEDS: LOSARTAN POTASSIUM 50 MG TABLET PO SCH (09:24)
[2023-02-18] MEDS: ENOXAPARIN NA (PORCINE) 40 MG/0.4 ML DISP.SYRIN SQ SCH (09:24)
[2023-02-18] MEDS: valACYclovir HCL 500 MG TABLET (FP) PO SCH ×4 (09:24→21:46)
[2023-02-18] MEDS: PANTOPRAZOLE 40 MG TABLET PO SCH (09:24)
[2023-02-18] MEDS: METOPROLOL TARTRATE 25 MG TABLET (FP) PO SCH ×2 (09:24→21:13)
[2023-02-18] MEDS: CLOPIDOGREL BISULFATE 75 MG TABLET (FP) PO SCH (09:24)
[2023-02-18] MEDS: ACETAMINOPHEN 325 MG TABLET (FP) PO PRN (12:16)
[2023-02-18] MEDS: GABAPENTIN 300 MG CAPSULE PO SCH ×2 (13:01→21:16)
[2023-02-18] MEDS: rOPINIRole HCL 0.25 MG TABLET PO SCH ×2 (16:27→21:17)
[2023-02-18] MEDS: ATORVASTATIN CA 80 MG TABLET (FP) PO SCH (21:15)
[2023-02-19] MEDS: oxyCODONE HCL 5 MG TABLET PO PRN ×3 (02:25→21:13)
[2023-02-19] MEDS: metFORMIN HCL 500 MG TABLET (FP) PO SCH ×2 (06:03→16:54)
[2023-02-19] MEDS: GABAPENTIN 300 MG CAPSULE PO SCH ×3 (06:03→21:14)
[2023-02-19] MEDS: rOPINIRole HCL 0.25 MG TABLET PO SCH ×3 (06:03→21:15)
[2023-02-19] MEDS: sitaGLIPtin PHOSPHATE 50 MG TABLET PO SCH (06:03)
[2023-02-19] MEDS: INSULIN SLIDING SCALE (NOVOLOG) 1 VIAL SQ SCH ×4 (06:07→21:19)
[2023-02-19] MEDS: METOPROLOL TARTRATE 25 MG TABLET (FP) PO SCH ×2 (09:03→21:14)
[2023-02-19] MEDS: CLOPIDOGREL BISULFATE 75 MG TABLET (FP) PO SCH (09:03)
[2023-02-19] MEDS: NIFEdipine E.R 60 MG TABLET PO SCH (09:03)
[2023-02-19] MEDS: PANTOPRAZOLE 40 MG TABLET PO SCH (09:03)
[2023-02-19] MEDS: ENOXAPARIN NA (PORCINE) 40 MG/0.4 ML DISP.SYRIN SQ SCH (09:03)
[2023-02-19] MEDS: valACYclovir HCL 500 MG TABLET (FP) PO SCH ×2 (09:03→21:15)
[2023-02-19] MEDS: LOSARTAN POTASSIUM 50 MG TABLET PO SCH (09:03)
[2023-02-19] MEDS: ATORVASTATIN CA 80 MG TABLET (FP) PO SCH (21:14)
[2023-02-19] MEDS: ACETAMINOPHEN 325 MG TABLET (FP) PO PRN (22:32)
[2023-02-20] MEDS: GABAPENTIN 300 MG CAPSULE PO SCH ×3 (06:40→21:16)
[2023-02-20] MEDS: rOPINIRole HCL 0.25 MG TABLET PO SCH ×3 (06:40→21:16)
[2023-02-20] MEDS: metFORMIN HCL 500 MG TABLET (FP) PO SCH ×2 (06:41→16:22)
[2023-02-20] MEDS: sitaGLIPtin PHOSPHATE 50 MG TABLET PO SCH (06:41)
[2023-02-20] MEDS: oxyCODONE HCL 5 MG TABLET PO PRN ×2 (06:48→16:52)
[2023-02-20] MEDS: INSULIN SLIDING SCALE (NOVOLOG) 1 VIAL SQ SCH ×4 (06:48→21:25)
[2023-02-20] MEDS: METOPROLOL TARTRATE 25 MG TABLET (FP) PO SCH ×2 (10:11→21:16)
[2023-02-20] MEDS: ENOXAPARIN NA (PORCINE) 40 MG/0.4 ML DISP.SYRIN SQ SCH (10:11)
[2023-02-20] MEDS: NIFEdipine E.R 60 MG TABLET PO SCH (10:11)
[2023-02-20] MEDS: CLOPIDOGREL BISULFATE 75 MG TABLET (FP) PO SCH (10:11)
[2023-02-20] MEDS: LOSARTAN POTASSIUM 50 MG TABLET PO SCH (10:11)
[2023-02-20] MEDS: valACYclovir HCL 500 MG TABLET (FP) PO SCH ×2 (10:11→21:26)
[2023-02-20] MEDS: PANTOPRAZOLE 40 MG TABLET PO SCH (10:11)
[2023-02-20] MEDS: ACETAMINOPHEN 325 MG TABLET (FP) PO PRN ×2 (10:49→21:22)
[2023-02-20] MEDS ORDERED: INSULIN (NOVOLOG) ASPART 100 UNITS/ML 10ML VIAL ONE (16:54)
[2023-02-20] MEDS: ATORVASTATIN CA 80 MG TABLET (FP) PO SCH (21:16)
[2023-02-21] MEDS: oxyCODONE HCL 5 MG TABLET PO PRN ×4 (04:27→22:18)
[2023-02-21] MEDS: rOPINIRole HCL 0.25 MG TABLET PO SCH ×3 (06:22→22:12)
[2023-02-21] MEDS: GABAPENTIN 300 MG CAPSULE PO SCH ×3 (06:22→22:11)
[2023-02-21] MEDS: sitaGLIPtin PHOSPHATE 50 MG TABLET PO SCH (06:22)
[2023-02-21] MEDS: metFORMIN HCL 500 MG TABLET (FP) PO SCH ×2 (06:22→16:54)
[2023-02-21] MEDS: INSULIN SLIDING SCALE (NOVOLOG) 1 VIAL SQ SCH ×4 (07:34→22:23)
[2023-02-21 09:01] LABS: HEMATOCRIT 39.5 % (32.4-45.2); HEMOGLOBIN 13.3 GM/dL (10.7-15.3); MCH 28.6 pg (25.7-33.7); MCHC 33.6 g/dl (32.0-36.0); MEAN CELL VOLUME 85.1 fl (80-96); PLATELET COUNT 327 10^3/uL (134-434); RBC 4.64 M/mm3 (3.60-5.2); RDW 14.8 % (11.6-15.6)
[2023-02-21] MEDS: METOPROLOL TARTRATE 25 MG TABLET (FP) PO SCH ×2 (09:18→22:11)
[2023-02-21] MEDS: PANTOPRAZOLE 40 MG TABLET PO SCH (09:18)
[2023-02-21] MEDS: valACYclovir HCL 500 MG TABLET (FP) PO SCH ×3 (09:18→21:10)
[2023-02-21] MEDS: LOSARTAN POTASSIUM 50 MG TABLET PO SCH (09:18)
[2023-02-21] MEDS: CLOPIDOGREL BISULFATE 75 MG TABLET (FP) PO SCH (09:18)
[2023-02-21] MEDS: NIFEdipine E.R 60 MG TABLET PO SCH (09:18)
[2023-02-21] MEDS: ENOXAPARIN NA (PORCINE) 40 MG/0.4 ML DISP.SYRIN SQ SCH (09:18)
[2023-02-21 09:21] LABS: POTASSIUM 4.9 mmol/L (3.5-5.1)
[2023-02-21 09:27] LABS: CALCIUM 9.9 mg/dL (8.5-10.1)
[2023-02-21 09:28] LABS: CREATININE 0.8 mg/dL (0.55-1.3)
[2023-02-21] MEDS ORDERED: NYSTATIN POWDER 100,000 UNITS/GM - 30 GM TOPICAL POWDER TP PRN (17:16)
[2023-02-21] MEDS: ATORVASTATIN CA 80 MG TABLET (FP) PO SCH (22:11)
[2023-02-22] MEDS: oxyCODONE HCL 5 MG TABLET PO PRN ×4 (03:21→20:49)
[2023-02-22] MEDS: rOPINIRole HCL 0.25 MG TABLET PO SCH ×4 (05:29→21:52)
[2023-02-22] MEDS: GABAPENTIN 300 MG CAPSULE PO SCH ×3 (05:29→21:52)
[2023-02-22] MEDS ORDERED: INSULIN (NOVOLOG) ASPART 100 UNITS/ML 10ML VIAL ONE (05:44)
[2023-02-22] MEDS: metFORMIN HCL 500 MG TABLET (FP) PO SCH ×2 (06:01→16:30)
[2023-02-22] MEDS: sitaGLIPtin PHOSPHATE 50 MG TABLET PO SCH (06:02)
[2023-02-22] MEDS: INSULIN SLIDING SCALE (NOVOLOG) 1 VIAL SQ SCH ×4 (06:02→21:52)
[2023-02-22] MEDS: METOPROLOL TARTRATE 25 MG TABLET (FP) PO SCH ×2 (09:18→21:52)
[2023-02-22] MEDS: LOSARTAN POTASSIUM 50 MG TABLET PO SCH (09:18)
[2023-02-22] MEDS: PANTOPRAZOLE 40 MG TABLET PO SCH (09:18)
[2023-02-22] MEDS: NIFEdipine E.R 60 MG TABLET PO SCH (09:18)
[2023-02-22] MEDS: ENOXAPARIN NA (PORCINE) 40 MG/0.4 ML DISP.SYRIN SQ SCH (09:18)
[2023-02-22] MEDS: CLOPIDOGREL BISULFATE 75 MG TABLET (FP) PO SCH (09:18)
[2023-02-22] MEDS: valACYclovir HCL 500 MG TABLET (FP) PO SCH ×2 (09:18→22:48)
[2023-02-22] MEDS: ATORVASTATIN CA 80 MG TABLET (FP) PO SCH (21:52)
[2023-02-23] MEDS: oxyCODONE HCL 5 MG TABLET PO PRN ×3 (02:49→12:09)
[2023-02-23] MEDS: rOPINIRole HCL 0.25 MG TABLET PO SCH ×2 (06:44→14:06)
[2023-02-23] MEDS: sitaGLIPtin PHOSPHATE 50 MG TABLET PO SCH (06:44)
[2023-02-23] MEDS: GABAPENTIN 300 MG CAPSULE PO SCH ×2 (06:45→14:06)
[2023-02-23] MEDS: metFORMIN HCL 500 MG TABLET (FP) PO SCH ×2 (06:45→17:02)
[2023-02-23] MEDS: INSULIN SLIDING SCALE (NOVOLOG) 1 VIAL SQ SCH ×3 (06:48→17:02)
[2023-02-23] MEDS: METOPROLOL TARTRATE 25 MG TABLET (FP) PO SCH (09:34)
[2023-02-23] MEDS: ENOXAPARIN NA (PORCINE) 40 MG/0.4 ML DISP.SYRIN SQ SCH (09:34)
[2023-02-23] MEDS: valACYclovir HCL 500 MG TABLET (FP) PO SCH (09:34)
[2023-02-23] MEDS: CLOPIDOGREL BISULFATE 75 MG TABLET (FP) PO SCH (09:34)
[2023-02-23] MEDS: LOSARTAN POTASSIUM 50 MG TABLET PO SCH (09:34)
[2023-02-23] MEDS: NIFEdipine E.R 60 MG TABLET PO SCH (09:35)
[2023-02-23] MEDS: PANTOPRAZOLE 40 MG TABLET PO SCH (09:35)
[2023-02-23 09:42] VITALS: RESP 18
[2023-02-23 14:26] VITALS: BP 102/50; PULSE 85; TEMP 97.9
== END 2023-02-23 18:32 | disposition short-term general hospital (02) | DRG 351 ==
LOC: JER 11:14 → JERBED 14:47 → J6S 18:02 → OBSVTOIN 02-17 09:15
PROVIDERS: ADMIT Family Medicine; ATTEND Family Medicine
DX: M79.604 Pain in right leg (principal); I25.10 Atherosclerotic heart disease of native coronary artery without angina pectoris; I10 Essential (primary) hypertension; E11.9 Type 2 diabetes mellitus without complications; Z79.4 Long term (current) use of insulin
CPT/HCPCS: 36415; 73590-TC-RT-FY; 73610-TC-RT-FY; 80048; 80053; 82962; 85025; 85027; 87635; 97116-GP; 97162-GP; 99285-25; G0378

== ENCOUNTER → 2023-04-15 | Day surgery (SDC) | payer OTHER ==
[2023-04-13 12:11] VITALS: BMI 28.3
[~2023-04-15] MED LIST: BUPIVACAINE HCL/PF 0.5% (5MG/ML) 10 ML VIAL ONE; FENTANYL CITRATE/PF 50 MCG/ML VIAL ONE; INSULIN REGULAR HUMAN 100 UNITS/ML *VIAL ONE; INSULIN REGULAR HUMAN 100 UNITS/ML *VIAL SQ ONE; LACTATED RINGERS SOLUTION 1,000 ML IV SCH; LIDOCAINE 1%/EPI 1:100000 (20 ML MULTI DOSE VIAL) IJ ONE; LIDOCAINE 1%/EPI 1:100000 (20 ML MULTI DOSE VIAL) ONE; LIDOCAINE HCL 1%, 10 MG/ML (20ML VIAL) ONE; MIDAZOLAM HCL 2 MG/2 ML SINGLE DOSE VIAL ONE; ONDANSETRON 4 MG/2 ML VIAL IVPUSH PRN; PROPOFOL 20 ML ONE; oxyCODONE HCL 5 MG TABLET PO PRN
[2023-04-15 11:03] VITALS: RESP 16
[2023-04-15 11:30] VITALS: BP 180/63; PULSE 68; TEMP 96.5
== END | disposition home or self-care (01) ==
LOC: JASU-SURG 03:47
PROVIDERS: ATTEND Orthopaedic Surgery
PROC: 0QPG04Z Removal of Internal Fixation Device from Right Tibia, Open Approach (ICD-10-PCS; principal; 2023-04-15 08:45)
DX: T84.84XA Pain due to internal orthopedic prosthetic devices, implants and grafts, initial encounter (principal)
CPT/HCPCS: 76000-TC-FY; 82962; 94760